=== PATIENT | female | born 1960 | race Caucasian/White ===

== ENCOUNTER → 2019-08-13 | Outpatient (CLI) | payer BC ==
--- NOTE | 2019-08-13 13:38 | MM ---
Reason for exam: screening (asymptomatic). Last mammogram was performed 4 years and 4 months ago. History: Patient is postmenopausal. Benign left mammotome panel of the left breast, May 19, 2008. Physical Findings: A clinical breast exam by your physician is recommended on an annual basis and results should be correlated with mammographic findings. MG Screening Mammo w CAD Bilateral CC and MLO view(s) were taken. Prior study comparison: April 20, 2015, bilateral MG screening mammo w CAD. April 15, 2014, bilateral MG diagnostic mammo w CAD [facility]. The breast tissue is heterogeneously dense. This may lower the sensitivity of mammography. Previous mammotome biopsy in the left breast. Stable scattered groups of punctate calcifications. No significant changes when compared with prior studies. ASSESSMENT: Negative, BI-RAD 1 RECOMMENDATION: Routine screening mammogram of both breasts in 1 year.
== END ==
LOC: RADMAMWWP 07:12
PROVIDERS: ATTEND Internal Medicine
DX: Z12.31 Encounter for screening mammogram for malignant neoplasm of breast (principal)
CPT/HCPCS: 77067

== ENCOUNTER → 2019-08-14 | Day surgery (SDC) | payer BC ==
[2019-08-12 15:18] VITALS: BMI 31.8
[~2019-08-14] MED LIST: LACTATED RINGERS 1,000 ML IV SCH; LIDOCAINE 1% 20 ML VIAL (10MG/ML) FOR IV START INTRADERMA PRN; PROPOFOL 10 MG/ML 20 ML VIAL IV ONE
[2019-08-14 11:23] VITALS: TEMP 98.3
--- NOTE | 2019-08-14 12:06 | P.PCN ---
Date of Procedure: 08/14/19 Procedure(s) Performed: BRIEF HISTORY: Patient is a 59-year-old pleasant white female scheduled for an elective colonoscopy as a part of screening for colorectal neoplasia. No prior history of colonoscopy. She is been symptomatic PROCEDURE PERFORMED: Colonoscopy with biopsy, snare polypectomy and tattooing with Edith ink. PREOPERATIVE DIAGNOSIS: Screening for colon cancer. IV sedation per Anesthesia. PROCEDURE: After informed consent was obtained, the patient, was brought into the endoscopy unit. IV sedation was administered by Anesthesia under continuous monitoring. Digital rectal examination was normal. Initially the Olympus CF-160 flexible video colonoscope was then inserted in the rectum, gradually advanced into the cecum without any difficulty. Careful examination was performed as the scope was gradually being withdrawn. Ileocecal valve and the appendiceal orifice were visualized and appeared normal. Prep was excellent. Mucosa of the cecum, appeared normal. In the ascending colon there was a 2 cm broad-based polyp that was removed by piecemeal snare polypectomy and complete polypectomy was accomplished. Rest of the ascending colon, transverse colon, descending colon, sigmoid colon appeared normal. In the rectosigmoid colon there was a near circumferential ulcerated mass extending from 18-24 cm from the anal verge and multiple biopsies were done from this area. Tattooing with Edith ink was performed in the distal margin of the mass. In the mid rectum there was a 5 mm polyp that was removed by snare polypectomy. Retroflexion was performed in the rectum and no lesions were seen. The patient tolerated the procedure well. IMPRESSION: Near circumferential ulcerated rectosigmoid mass extending from 18-24 cm from the anal verge, status post biopsy on by tattooing with Edith ink at the distal margin 2 cm broad-based ascending colon polyp status post polypectomy 5 mm distal rectal polyp status post polypectomy RECOMMENDATIONS: Findings of this examination were discussed with the patient is well as her family. She was advised to follow with the biopsy results. She'll be scheduled for CT of abdomen and pelvis and will be seen back in office early next week.
[2019-08-14 14:10] VITALS: BP 179/84; PULSE 75; RESP 18
== END ==
LOC: ORWHC2ENDO 10:21
PROVIDERS: ATTEND Internal Medicine Gastroenterology
DX: Z12.11 Encounter for screening for malignant neoplasm of colon (principal); C19 Malignant neoplasm of rectosigmoid junction; D12.2 Benign neoplasm of ascending colon; D12.8 Benign neoplasm of rectum; F17.210 Nicotine dependence, cigarettes, uncomplicated
CPT/HCPCS: 45385; 45380; 45381; 88305; J2704; 44404

== ENCOUNTER → 2019-08-15 | Outpatient (CLI) | payer BC ==
--- NOTE | 2019-08-15 13:41 | CT ---
EXAMINATION TYPE: CT abdomen pelvis w con DATE OF EXAM: 08/15/2019 COMPARISON: None INDICATION: Sigmoid mass, failed colonoscopy. DLP: 1076.50 mGycm, Automated exposure control for dose reduction was used. CONTRAST: 100 mL of Isovue 300. Study performed with Oral Contrast TECHNIQUE: Axial images were obtained from above the diaphragm to the pubic rami in the axial plane a t 5 mm thick sections. Reconstructed images are reviewed on the computer in the coronal plane. FINDINGS: Limited CT sections are obtained the lung bases. The lung bases are clear. CT ABDOMEN: Liver: Tiny hypodensities at the superior liver could be a tiny cyst. Series 4 image 8. Spleen: Normal Pancreas: Normal Adrenal glands: There is a 1.7 cm thickening through the right adrenal gland. Left adrenal gland is n ormal. Gallbladder: Debris is within the gallbladder. Kidneys: No masses are evident. No hydronephrosis is present. There is a 5.2 cm cyst on the posteri or lateral right mid kidney 6 Hounsfield units. Aorta: Vascular calcification is within the aorta. Inferior vena cava: Normal. CT PELVIS: Loops of bowel within the abdomen and pelvis are normal. There is thickening of the distal sigmoi d colon and proximal rectum. Correlate for colitis. Follow-up is recommended. Appendix: Normal as visualized. Urinary bladder: Normal. Genitourinary structures: Uterus is normal. Adnexal regions are clear. Osseous structures: No suspicious lytic or sclerotic lesions. IMPRESSIONS: 1. Thickening to the sigmoid colon into the proximal rectum. Findings are likely related to colitis. Follow-up is recommended. 2. Right renal cyst 3. Thickening of the right adrenal gland measuring
== END | disposition home or self-care (01) ==
LOC: RADCTMAIN 08:17
PROVIDERS: ATTEND Internal Medicine Gastroenterology
DX: N28.1 Cyst of kidney, acquired (principal); K63.89 Other specified diseases of intestine; K62.89 Other specified diseases of anus and rectum; E27.8 Other specified disorders of adrenal gland
CPT/HCPCS: 74177; Q9967 ×2

== ENCOUNTER → 2019-08-30 | Outpatient (CLI) | payer BC ==
[2019-08-30 09:33] LABS: HCT 39.7 % (34.0-46.0); HGB 13.1 gm/dL (11.4-16.0); MCH 31.9 pg (25.0-35.0); MCV 96.6 fL (80.0-100.0); Mean Platelet Volume 6.4; Platelet Count 462 k/uL (150-450); RBC 4.11 m/uL (3.80-5.40); RDW 13.2 % (11.5-15.5); WBC 11.4 k/uL (3.8-10.6)
[2019-08-30 09:56] LABS: Potassium 4.9 mmol/L (3.5-5.1)
== END | disposition home or self-care (01) ==
LOC: LABPAT 08:26
PROVIDERS: ATTEND Surgery
DX: Z01.812 Encounter for preprocedural laboratory examination (principal)
CPT/HCPCS: 36415; 80051; 85027

== ENCOUNTER 2019-09-03 11:26 | Inpatient (IN) | payer BC ==
[2019-08-28 12:59] VITALS: BMI 32.8
[~2019-09-03 11:26] MED LIST changes: +ALVIMOPAN 12 MG CAPSULE PO ONE; +DEXAMETHASONE SOD PHOSPHATE 10 MG/ML 1 ML VIAL IV ONE; +HEPARIN SODIUM,PORCINE 5,000 UNIT/ML 1 ML VIAL SQ ONE; +HYDROmorphone 0.5 MG/0.5 ML SYRINGE IVP PRN; -LACTATED RINGERS 1,000 ML IV SCH; -LIDOCAINE 1% 20 ML VIAL (10MG/ML) FOR IV START INTRADERMA PRN; +MIDAZOLAM 2 MG/2 ML VIAL IV PRN; -PROPOFOL 10 MG/ML 20 ML VIAL IV ONE; +SCOPOLAMINE 1.5MG/72HR PATCH TRANSDERM ONE; +metroNIDAZOLE-NS PMX 500 MG in SALINE 1 100ML.BAG IVPB ONE
[2019-09-03] MEDS ORDERED: LIDOCAINE 1% 20 ML VIAL (10MG/ML) FOR IV START INTRADERMA ONE (12:10)
[2019-09-03] MEDS: ONDANSETRON 4 MG/2 ML VIAL IVP ONE ×2 (12:11→16:51)
[2019-09-03] MEDS: LACTATED RINGERS 1,000 ML IV SCH (12:11)
[2019-09-03] MEDS ORDERED: NALOXONE 0.4 MG/ML 1 ML VIAL IV PRN (12:52)
[2019-09-03] MEDS ORDERED: ONDANSETRON 4 MG/2 ML VIAL IVP PRN (12:52)
[2019-09-03] MEDS ORDERED: GLYCOPYRROLATE 0.2 MG/ML 2 ML VIAL ONE (13:29)
[2019-09-03] MEDS ORDERED: PROPOFOL 10 MG/ML 20 ML VIAL IV ONE (13:29)
[2019-09-03] MEDS ORDERED: ePHEDrine SULFATE/0.9% NACL/PF 50 MG/5 ML SYRINGE IV ONE (13:29)
[2019-09-03] MEDS ORDERED: MIDAZOLAM 2 MG/2 ML VIAL ONE (13:29)
[2019-09-03] MEDS ORDERED: ROCURONIUM BROMIDE 10 MG/ML 10 ML VIAL IV ONE (13:29)
[2019-09-03] MEDS ORDERED: fentaNYL (PF) 50 MCG/ML 2 ML AMP ONE (13:29)
[2019-09-03] MEDS ORDERED: NEOSTIGMINE 1 MG/ML 10 ML VIAL ONE (13:29)
[2019-09-03] MEDS ORDERED: LIDOCAINE 1% INJ 10MG/ML (20 ML MDV) ONE (13:29)
[2019-09-03] MEDS ORDERED: LACTATED RINGERS 1,000 ML IV ONE (15:24)
--- NOTE | 2019-09-03 15:40 | P.OP ---
Date of Procedure: 09/03/19 Preoperative Diagnosis: Colon cancer Postoperative Diagnosis: Colon cancer, sigmoid colon Procedure(s) Performed: Low anterior resection with primary anastomosis Anesthesia: MICHELLE Surgeon: Jose Padilla [facility] Monitor #1: Nasir Golden Estimated Blood Loss (ml): 25 Pathology: other (Sigmoid colon) Condition: stable Disposition: floor Indications for Procedure: This is a 59-year-old female that presented to the surgical clinic after a recent diagnosis of colon cancer. This was found on colonoscopy that was performed as a screening colonoscopy. This mass was noted at approximately the 18 through 24 cm danya. It was noted to be tattooed by the boom supervisor. Secondary to this, plan was made for surgical intervention. The patient did have a CT of the abdomen and pelvis that did not show any obvious metastasis. The patient was excellent the risks, benefit and alternatives to the procedure and did provide consent prior to attending the operating suite. Operative Findings: Area of tattoo noted in the distal sigmoid colon with palpable mass Description of Procedure: The patient was brought into the operating suite and placed in supine position on the operating table. Sedation was provided by anesthesia and the patient did undergo endotracheal intubation. The patient was then put in lithotomy position and Hope catheter was placed. The patient was prepped and draped in regular st erile fashion. A midline infraumbilical incision was made and dissection was carried down through the skin and subcutaneous tissue. The fascia was incised along the length of the incision. The tattooed area within the distal sigmoid colon was clearly visualized and palpated with a hard nodule noted. Bookwalter retractor was placed in the small bowel was packed into the right upper quadrant. The colon was noted to be redundant and only a mild dissection was needed on the white line of Toldt. A proximal point of transection was noted and transected with a Endo KAYCEE 60 mm purple load stapler. The mesentery was then ligated using a LigaSure device towards the distal sigmoid colon. An anticipated distal point of transection was palpated approximately 5 cm past the palpable mass. This area was also transected with a 60 mm purple load stapler. The specimen was then completely removed and a suture was placed on the distal end as a marker for pathology. At this point irrigation was placed and the abdomen and hemostasis was noted to be maintained. At this point, an assistant professor of nursing, dr. Golden, was required for assistance with creating an anastomosis and maneuvering the EEA stapler. Dilator was placed within the rectum and a 29 mm EEA stapler was noted to be appropriate. This was placed through the anus and towards the distal transection point. Once an appropriate position, a colotomy was created on the proximal end of colon and the anvil was placed and sutured into position with a pursestring 3-0 Vicryl suture. The anvil was then mated with its counterpart in the EEA stapler. The EEA stapler was then fired and 2 complete donuts were noted. Irrigation was then placed into the pelvis and a leak test was performed. There was no evidence of any air leak during this test. The Bookwalter retractor was then removed after the abdomen was irrigated once more. Of the midline incision was closed with a looped PDS suture. All skin incision was then closed with skin omkar. The patient was awakened in the operating suite and taken to postanesthesia care unit in stable condition.
[2019-09-03] MEDS: METOCLOPRAMIDE 5 MG/ML 2 ML VIAL IVP SCH (17:39)
[2019-09-04] MEDS ORDERED: LACTATED RINGERS 1,000 ML BAG IV ONE (01:45)
[2019-09-04] MEDS: LACTATED RINGERS 1,000 ML IV SCH (07:44)
[2019-09-04] MEDS: METOCLOPRAMIDE 5 MG/ML 2 ML VIAL IVP SCH ×4 (07:44→23:07)
[2019-09-04] MEDS: ALVIMOPAN 12 MG CAPSULE PO SCH ×2 (07:46→19:49)
[2019-09-04] MEDS: ENOXAPARIN 40 MG/0.4 ML SYRINGE SQ SCH (07:47)
--- NOTE | 2019-09-04 10:37 | P.PN ---
Subjective Progress Note Date: 09/04/19 Patient seen and examined at bedside. States pain is well-controlled. Complains of some nausea. Tolerating clear liquid diet. Hope catheter in place. Objective - Vital Signs Vital signs: Vital Signs Temp 98.4 F 09/04/19 07:00 Pulse 81 09/04/19 07:00 Resp 16 09/04/19 07:15 BP 114/65 09/04/19 07:00 Pulse Ox 93 L 09/04/19 07:00 Intake & Output 09/03/19 09/04/19 09/04/19 18:59 06:59 18:59 Intake Total 1150 437.5 Output Total 75 300 Balance 1075 137.5 Weight 81.5 kg Intake: IV 1150 Intake, IV Titration 437.5 Amount Lactated Ringers 1,000 ml 437.5 @ 125 mls/hr IV .Q8H [facility] Rx#:[id number] Output: Urine 50 300 Estimated Blood Loss 25 Other: Voiding Method Indwelling Catheter Indwelling Catheter Indwelling Catheter - Constitutional General appearance: Present: cooperative, no acute distress - EENT Eyes: Present: PERRLA - Respiratory Details: No difficulty with respiration - Gastrointestinal Gastrointestinal Comment(s): Soft, appropriate tenderness, nondistended, no rebound, no guarding, midline incision with sterile dressing in place - Psychiatric Psychiatric: Present: A&O x's 3 Assessment and Plan (1) Colon cancer Narrative/Plan: Postoperative day #1, LAR - Continue epidural - Continue Hope catheter while epidural is in place - Continue clear liquid diet - Will continue Reglan and Entereg and await bowel function - Medical recommendations appreciated - Await laboratory values - Increase activity Current Visit: Yes Status: Acute Code(s): C18.9 - MALIGNANT NEOPLASM OF COLON, UNSPECIFIED SNOMED Code(s): 289962701
[2019-09-04 13:21] LABS: Basophils # (A) 0.1 k/uL (0-0.2); Basophils % (A) 1 %; Eosinophils # (A) 0.1 k/uL (0-0.7); Eosinophils % (A) 0 %; HCT 36.1 % (34.0-46.0); HGB 10.8 gm/dL (11.4-16.0); Hypochromasia Slight; Lymphocytes # (A) 2.1 k/uL (1.0-4.8); Lymphocytes % (A) 13 %; MCH 30.1 pg (25.0-35.0); MCHC 29.8 g/dL (31.0-37.0); Macrocytosis Slight; Mean Platelet Volume 7.9; Monocytes % (A) 6 %; Neutrophils # (A) 13.1 k/uL (1.3-7.7); Neutrophils % (A) 79 %; Platelet Count 409 k/uL (150-450); RBC 3.58 m/uL (3.80-5.40); RDW 13.5 % (11.5-15.5); WBC 16.5 k/uL (3.8-10.6)
--- NOTE | 2019-09-04 13:49 | P.CONS ---
History of Present Illness - Reason for Consult Consult date: 09/04/19 Medical management Requesting physician: Jose Padilla - Chief Complaint Medical management - History of Present Illness 59-year-old female with recent diagnosis of colon cancer presents to [facility] for elective colectomy and removal of tumor. She underwent a low anterior resection with primary reanastomosis. [facility] physicians has been consulted for medical management of this patient. Patient reports recent diagnosis of colon cancer 2-3 weeks ago after a routine colonoscopy with Dr. Jay. Patient states that this was her first colonoscopy. She denied any bowel issues at that time. No constipation or diarrhea, no melena or blood in stool. Patient reports undergoing computed tomography scan of the abdomen and pelvis that did not show any metastatic disease. She has yet to follow-up with oncology. Patient currently reports no abdominal pain due to the epidural. She reports some nausea but denies any vomiting. Patient reports some hot flash that his chronic in nature. She denies any headache, lower extremities edema, fever or chills, cough, chest pain, shortness of breath, changes in appetite or weight, dizziness, numbness/weakness/tingling of the extremities. She currently has a Hope catheter in place and is passing gas. She denies having a bowel movement. She does report a history of smoking cigarettes 15 cigarettes daily for the past 40 years. Review of Systems Pertinent positives and negatives as discussed in HPI, a complete review of systems was performed and all other systems are negative. Past Medical History Past Medical History: Cancer Additional Past Medical History / Comment(s): colon cancer History of Any Multi-Drug Resistant Organisms: None Reported Past Surgical History: No Surgical Hx Reported Additional Past Surgical History / Comment(s): FRONT TEETH EXTRACTIONS Past Anesthesia/Blood Transfusion Reactions: No Reported Reaction Additional Past Anesthesia/Blood Transfusion Reaction / Comm: DENTAL PROCEDURE ONLY Past Psychological History: No Psychological Hx Reported Smoking Status: Former smoker Past Alcohol Use History: Occasional Additional Past Alcohol Use History / Comment(s): STARTED SMOKING AT AGE 16 SMOKES 1/2PPD Past Drug Use History: Marijuana Additional Drug Use History / Comment(s): RARE OCCAS - Past Family History Mother Family Medical History: No Reported History Medications and Allergies Home Medications Medication Instructions Recorded Confirmed Type Ascorbic Acid [Vitamin C] 1,000 mg PO DAILY 08/12/19 09/03/19 History Calcium Carbonate/Vitamin D3 2 each PO DAILY 08/12/19 09/03/19 History [Calcium 600-Vit D3 400 Caplet] Cyanocobalamin (Vitamin B-12) 5,000 mcg PO DAILY 08/12/19 09/03/19 History [Vitamin B-12] Multivitamin [Multivitamins Adult 1 each PO DAILY 08/12/19 09/03/19 History Gummies] Allergies Allergy/AdvReac Type Severity Reaction Status Date / Time No Known Allergies Allergy Verified 09/03/19 12:12 Physical Exam Vitals: Vital Signs Temp Pulse Resp BP Pulse Ox 09/04/19 07:15 16 09/04/19 07:00 98.4 F 81 16 114/65 93 L 09/04/19 01:45 98.1 F 88 111/64 93 L 09/03/19 19:45 84 124/76 93 L 09/03/19 19:30 83 105/67 91 L 09/03/19 19:15 84 112/72 93 L 09/03/19 19:00 89 107/68 93 L 09/03/19 18:45 86 97/64 93 L 09/03/19 18:30 85 116/73 91 L 09/03/19 18:15 82 118/71 96 09/03/19 17:45 92 144/80 95 09/03/19 17:30 97.9 F 97 18 157/80 93 L 09/03/19 17:02 75 18 118/59 97 09/03/19 16:45 70 18 128/64 97 09/03/19 16:30 64 18 117/55 97 09/03/19 16:15 72 16 117/55 97 09/03/19 16:00 71 18 145/69 97 09/03/19 15:45 72 16 145/69 96 09/03/19 15:30 97.6 F 80 18 150/61 96 Intake and Output 09/03/19 09/04/19 09/04/19 22:59 06:59 14:59 Intake Total 437.5 Output Total 75 300 Balance 362.5 -300 Intake: IV 0 Intake, IV Titration 437.5 Amount Lactated Ringers 1,000 ml 437.5 @ 125 mls/hr IV .Q8H [facility] Rx#:[id number] Output: Urine 50 300 Estimated Blood Loss 25 Other: Voiding Method Indwelling Catheter Indwelling Catheter General: [non toxic], [no distress], [appears at stated age] Derm: [warm], [dry] Head: [atraumatic], [normocephalic], [symmetric] Eyes: [EOMI], [no lid lag], [anicteric sclera] Mouth: [no lip lesion], [mucus membranes moist] Cardiovascular: [S1S2 reg], [no murmur], [positive DP pulse bilateral], Lungs: [CTA bilateral], [no rhonchi, no rales] , [no accessory muscle use] Abdominal: [soft], [ nontender to palpation], [surgical scar midline dressing clean dry and intact no erythema], [no appreciable organomegaly] Ext: [no gross muscle atrophy], [no edema], [no contractures] Neuro: [ CN II-XI grossly intact], [no focal neuro deficits] Psych: [Alert], [oriented], [appropriate affect] Results CBC & Chem 7: 09/04/19 06:36 Labs: Abnormal Lab Results - Last 24 Hours (Table) 09/04/19 Range/Units 06:36 WBC 16.5 H (3.8-10.6) k/uL RBC 3.58 L (3.80-5.40) m/uL Hgb 10.8 L (11.4-16.0) gm/dL MCV 101.0 H (80.0-100.0) fL MCHC 29.8 L (31.0-37.0) g/dL Neutrophils # 13.1 H (1.3-7.7) k/uL Assessment and Plan Assessment: Assessment and plan Colon cancer post resection with primary reanastomosis POD 0 Nicotine dependence Leukocytosis likely reactive Anemia from acute blood loss Recent diagnosis after screening colonoscopy. Sees Dr. Jay. Has not seen an oncologist. Plans: Patient will need adequate follow-up with GI and oncology on discharge. Cholectomy management as per surgery. Zofran as needed for nausea or vomiting. Continue epidural. Clear liquid diet and advance. Plans: Patient refusing nicotine patch at this time. I have encouraged her to quit. Leukocytosis of 16.5. No signs of infection. Likely reactive from surgery. Plans: We will repeat CBC in the morning. Hemoglobin is 10.8. MCV 101. Patient takes vitamin B12 at home. Plans: Follow B12 and folate. Transfuse if hemoglobin less than 7. DVT prophylaxis: [SCD] Discussed with: [Patient and ] Anticipated discharge: [3-[address]: [Home] A total of [45] minutes was spent on the care of this complex patient more than 50% of the time was spent in counseling and care coordination. Patient names her Bhanu decision-maker in the case that she can't make decisions for herself. Patient reiterates wanting to remain full code at this time. Thank you for this consultation. Please call with any additional questions or concerns.
[2019-09-04] MEDS: ROPIVACAINE 400 MG, HYDROMORPHONE (PF) 5 MG in SODIUM CHLORIDE 0.9% 170 ML EPIDURAL PRN (17:30)
[2019-09-05] MEDS: METOCLOPRAMIDE 5 MG/ML 2 ML VIAL IVP SCH ×4 (05:05→23:33)
[2019-09-05] MEDS: LACTATED RINGERS 1,000 ML IV SCH (05:05)
[2019-09-05 07:43] LABS: Basophils # (A) 0.1 k/uL (0-0.2); Basophils % (A) 1 %; Eosinophils # (A) 0.2 k/uL (0-0.7); Eosinophils % (A) 2 %; HCT 31.7 % (34.0-46.0); HGB 10.5 gm/dL (11.4-16.0); Lymphocytes # (A) 2.4 k/uL (1.0-4.8); Lymphocytes % (A) 21 %; MCH 32.1 pg (25.0-35.0); MCV 97.2 fL (80.0-100.0); Monocytes # (A) 0.5 k/uL (0-1.0); Monocytes % (A) 4 %; Neutrophils # (A) 8.3 k/uL (1.3-7.7); Neutrophils % (A) 71 %; Platelet Count 367 k/uL (150-450); RBC 3.26 m/uL (3.80-5.40); RDW 13.2 % (11.5-15.5); WBC 11.6 k/uL (3.8-10.6)
[2019-09-05] MEDS: NALBUPHINE 10 MG/ML (1 ML AMP) IV PRN (08:22)
[2019-09-05] MEDS: ENOXAPARIN 40 MG/0.4 ML SYRINGE SQ SCH (08:22)
[2019-09-05] MEDS: ALVIMOPAN 12 MG CAPSULE PO SCH ×2 (08:23→20:34)
[2019-09-05] MEDS ORDERED: ALBUTEROL NEBULIZED 2.5 MG/3 ML INHALATION PRN (11:41)
--- NOTE | 2019-09-05 11:43 | P.PN ---
Subjective Progress Note Date: 09/05/19 Principal diagnosis: Medical management after colectomy Patient was seen and examined. No acute events overnight. Patient reports mild abdominal pain at the site of incision as epidural has been weaning down from 9- 7. Patient denies any bowel movement. She still has Hope catheter. Patient denies any chest pain, shortness of breath or palpitations. No nausea or vomiting. No fever or chills. Objective - Vital Signs Vital signs: Vital Signs Temp 98.5 F 09/05/19 07:00 Pulse 79 09/05/19 08:05 Resp 16 09/05/19 08:05 BP 121/59 09/05/19 07:00 Pulse Ox 94 L 09/05/19 07:00 Intake & Output 09/04/19 09/05/19 09/05/19 18:59 06:59 18:59 Intake Total 475 Output Total 600 1500 Balance -600 -1025 Intake: Intake, IV Titration 475 Amount Lactated Ringers 1,000 ml 475 @ 125 mls/hr IV .Q8H [facility] Rx#:[id number] Output: Urine 600 1500 Other: Voiding Method Indwelling Catheter Indwelling Catheter Indwelling Catheter - Exam General: [non toxic], [no distress], [appears at stated age] Derm: [warm], [dry] Head: [atraumatic], [normocephalic], [symmetric] Eyes: [EOMI], [no lid lag], [anicteric sclera] Mouth: [no lip lesion], [mucus membranes moist] Cardiovascular: [S1S2 reg], [no murmur], [positive DP pulse bilateral], Lungs: [Expiratory wheezing bilaterally right greater than left], [no rhonchi, no rales] , [no accessory muscle use] Abdominal: [soft], [ nontender to palpation], [surgical scar midline dressing clean dry and intact no erythema], [no appreciable organomegaly] Ext: [no gross muscle atrophy], [no edema], [no contractures] Neuro: [no focal neuro deficits] Psych: [Alert], [oriented], [appropriate affect] - Labs CBC & Chem 7: 09/05/19 07:09 Labs: Abnormal Lab Results - Last 24 Hours (Table) 09/04/19 09/05/19 Range/Units 06:36 07:09 WBC 16.5 H 11.6 H (3.8-10.6) k/uL RBC 3.58 L 3.26 L (3.80-5.40) m/uL Hgb 10.8 L 10.5 L (11.4-16.0) gm/dL Hct 31.7 L (34.0-46.0) % MCV 101.0 H (80.0-100.0) fL MCHC 29.8 L (31.0-37.0) g/dL Neutrophils # 13.1 H 8.3 H (1.3-7.7) k/uL Assessment and Plan Assessment: Assessment and plan Colon cancer post resection with primary reanastomosis POD 1 Wheezing Nicotine dependence Leukocytosis likely reactive Anemia from acute blood loss Recent diagnosis after screening colonoscopy. Sees Dr. Jay. Has not seen an oncologist. Plans: Patient will need adequate follow-up with GI and oncology on discharge. Cholectomy management as per surgery. Zofran as needed for nausea or vomiting. Continue epidural. Clear liquid diet and advance. Follow oncology consultation. Patient denies any shortness of breath and is saturating 90s on 2 L NC. Plans: Follow chest x-ray. Continue incentive spirometer. Albuterol neb as needed for shortness of breath and wheezing. Plans: Patient refusing nicotine patch at this time. I have encouraged her to quit. Leukocytosis of 16.5-11.6. No signs of infection. Likely reactive from surgery . Plans: We will repeat CBC in the morning. Hemoglobin is 10.8-10.5. MCV 101. Patient takes vitamin B12 at home. Plans: Follow B12 and folate. Transfuse if hemoglobin less than 7.
[2019-09-05 12:32] LABS: African American GFR (CKD) >90 (>60 ml/min/1.73 sqM); Anion Gap 3 mmol/L; Blood Urea Nitrogen 14 mg/dL (7-17); Calcium 8.9 mg/dL (8.4-10.2); Carbon Dioxide 28 mmol/L (22-30); Chloride 105 mmol/L (98-107); Glucose 88 mg/dL (74-99); Potassium 4.6 mmol/L (3.5-5.1); Sodium 136 mmol/L (137-145)
--- NOTE | 2019-09-05 12:41 | XR ---
EXAMINATION TYPE: XR chest 1V portable DATE OF EXAM: 09/05/2019 COMPARISON: None INDICATION: Wheezing TECHNIQUE: Single frontal view of the chest is obtained. FINDINGS: The heart size is normal. The pulmonary vasculature is normal. There are bilateral areas of increased density at the lung bases compatible with atelectasis. IMPRESSION: 1. Bibasilar atelectasis. Follow-up can be performed.
--- NOTE | 2019-09-05 14:01 | P.PN ---
Subjective Progress Note Date: 09/05/19 Patient seen and examined at bedside. No acute events. Ending in a chair with her family. Denies any bowel function. States pain is well controlled with epidural in place. Hope catheter in place. Objective - Vital Signs Vital signs: Vital Signs Temp 98.5 F 09/05/19 07:00 Pulse 79 09/05/19 08:05 Resp 16 09/05/19 08:05 BP 121/59 09/05/19 07:00 Pulse Ox 94 L 09/05/19 07:00 Intake & Output 09/04/19 09/05/19 09/05/19 18:59 06:59 18:59 Intake Total 475 157.984 Output Total 600 1500 Balance -600 -1025 157.984 Intake: Intake, IV Titration 475 157.984 Amount Lactated Ringers 1,000 ml 475 @ 125 mls/hr IV .Q8H [facility] Rx#:[id number] Ropivacaine 400 mg 157.984 Hydromorphone (Pf) 5 mg In Sodium Chloride 0.9% 170 ml @ Per Protocol EPIDURAL .Q0M PRN Rx#: [id number] Output: Urine 600 1500 Other: Voiding Method Indwelling Catheter Indwelling Catheter Indwelling Catheter - Constitutional General appearance: Present: cooperative, no acute distress - Respiratory Details: No difficulty with respiration - Gastrointestinal Gastrointestinal Comment(s): Soft, appropriate tenderness, nondistended, no rebound, no guarding - Musculoskeletal Musculoskeletal: Present: generalized weakness - Psychiatric Psychiatric: Present: A&O x's 3 - Labs CBC & Chem 7: 09/05/19 07:09 09/05/19 07:09 Labs: Abnormal Lab Results - Last 24 Hours (Table) 09/05/19 09/05/19 Range/Units 07:09 07:09 WBC 11.6 H (3.8-10.6) k/uL RBC 3.26 L (3.80-5.40) m/uL Hgb 10.5 L (11.4-16.0) gm/dL Hct 31.7 L (34.0-46.0) % Neutrophils # 8.3 H (1.3-7.7) k/uL Sodium 136 L (137-145) mmol/L Assessment and Plan (1) Colon cancer Narrative/Plan: Postoperative day #2, LAR - Continue epidural - Continue Hope catheter while epidural is in place - Continue clear liquid diet - Will continue Reglan and Entereg and await bowel function - Medical recommendations appreciated - Leukocytosis is improving, reactive from surgery - Increase activity Current Visit: Yes Status: Acute Code(s): C18.9 - MALIGNANT NEOPLASM OF COLON, UNSPECIFIED SNOMED Code(s): 172527811
--- NOTE | 2019-09-05 14:23 | P.CONS ---
History of Present Illness - Reason for Consult Consult date: 09/05/19 colon cancer Requesting physician: Nahomi Eilzabeth - Chief Complaint colon cancer - History of Present Illness Mrs. Carvajal is a very pleasant 59-year-old female who was found on routine colonoscopy with Dr. Arriaga on 08/14 (she is 59 years old and this was her first one) to have a rectosigmoid mass. Bx positive for adencarcinoma, MSI stable. Patient was taken to surgery by Dr. Padilla on 09/03 with LAR and anastamosis. Final pathology pending. Patient denied any symptoms prior to the routine colonoscopy, no unintentional weight loss, sweats, frequent infections, abdominal pain or cramping, indigestion heartburn, difficulty swallowing, she had been managing some constipation with occasional bleeding from hemorrhoids but nothing she felt was unusual. She was not taking any medications on admission, she denies any history of surgeries, no personal history of cancer, no family history of cancer. Patient is doing well postoperatively, is grateful for her pain medication at this time, she is out of bed today Review of Systems 14 point ROS is negative except as stated in HPI Past Medical History Past Medical History: Cancer Additional Past Medical History / Comment(s): colon cancer History of Any Multi-Drug Resistant Organisms: None Reported Past Surgical History: No Surgical Hx Reported Additional Past Surgical History / Comment(s): FRONT TEETH EXTRACTIONS Past Anesthesia/Blood Transfusion Reactions: No Reported Reaction Additional Past Anesthesia/Blood Transfusion Reaction / Comm: DENTAL PROCEDURE ONLY Past Psychological History: No Psychological Hx Reported Smoking Status: Former smoker Past Alcohol Use History: Occasional Additional Past Alcohol Use History / Comment(s): STARTED SMOKING AT AGE 16 SMOKES 1/2PPD Past Drug Use History: Marijuana Additional Drug Use History / Comment(s): RARE OCCAS - Past Family History Mother Family Medical History: No Reported History Medications and Allergies Home Medications Medication Instructions Recorded Confirmed Type Ascorbic Acid [Vitamin C] 1,000 mg PO DAILY 08/12/19 09/03/19 History Calcium Carbonate/Vitamin D3 2 each PO DAILY 08/12/19 09/03/19 History [Calcium 600-Vit D3 400 Caplet] Cyanocobalamin (Vitamin B-12) 5,000 mcg PO DAILY 08/12/19 09/03/19 History [Vitamin B-12] Multivitamin [Multivitamins Adult 1 each PO DAILY 08/12/19 09/03/19 History Gummies] Allergies Allergy/AdvReac Type Severity Reaction Status Date / Time No Known Allergies Allergy Verified 09/03/19 12:12 Physical Exam Vitals: Vital Signs Temp Pulse Pulse Resp BP Pulse Ox 09/05/19 08:05 79 74 16 09/05/19 07:00 98.5 F 79 16 121/59 94 L 09/05/19 00:50 98.5 F 75 15 123/68 93 L 09/04/19 20:31 98.7 F 73 16 121/63 96 09/04/19 19:11 98.4 F 79 15 116/53 96 09/04/19 17:28 98.5 F 74 15 126/65 95 09/04/19 14:58 98.8 F 74 16 131/66 96 Intake and Output 09/04/19 09/05/19 09/05/19 22:59 06:59 14:59 Intake Total 475 157.984 Output Total 1500 Balance 475 -1500 157.984 Intake: Intake, IV Titration 475 157.984 Amount Lactated Ringers 1,000 ml 475 @ 125 mls/hr IV .[facility] Rx#:[id number] Ropivacaine 400 mg 157.984 Hydromorphone (Pf) 5 mg In Sodium Chloride 0.9% 170 ml @ Per Protocol EPIDURAL .Q0M PRN Rx#: [id number] Output: Urine 1500 Other: Voiding Method Indwelling Catheter Indwelling Catheter Indwelling Catheter - Constitutional General appearance: cooperative, no acute distress, obese - EENT Eyes: anicteric sclerae, EOMI ENT: hearing grossly normal, normal oropharynx - Neck Neck: no lymphadenopathy - Respiratory Respiratory: bilateral: CTA - Cardiovascular Rhythm: regular Heart sounds: normal: S1, S2 Abnormal Heart Sounds: no systolic murmur, no diastolic murmur, no rub, no S3 Gallop, no S4 Gallop, no click, no other leg Peripheral Edema: bilateral: None - Gastrointestinal General gastrointestinal: decreased bowel sounds, distended, soft, tenderness - Integumentary Integumentary: normal - Neurologic Neurologic: CNII-XII intact - Musculoskeletal Musculoskeletal: strength equal bilaterally - Psychiatric Psychiatric: A&O x's 3, appropriate affect, intact judgment & insight Results CBC & Chem 7: 09/05/19 07:09 09/05/19 07:09 Labs: Abnormal Lab Results - Last 24 Hours (Table) 09/05/19 09/05/19 Range/Units 07:09 07:09 WBC 11.6 H (3.8-10.6) k/uL RBC 3.26 L (3.80-5.40) m/uL Hgb 10.5 L (11.4-16.0) gm/dL Hct 31.7 L (34.0-46.0) % Neutrophils # 8.3 H (1.3-7.7) k/uL Sodium 136 L (137-145) mmol/L Assessment and Plan (1) Colon cancer Narrative/Plan: Discussed with patient that the final pathology of the resected mass will determine her final stage. Based on the final stage it will be known if if she requires adjuvant chemotherapy or not. I also explained to patient that if there was any adjuvant chemotherapy needed it would not be done until at least 4-6 weeks postop to ensure adequate healing. All of her questions were answered to the best of my ability and to her satisfaction. Reminded patient that she must follow with Dr. Padilla and adhere to his strict orders for colonoscopies as he prescribes. She verbalized understanding. Appointment will be placed in the chart for 4-6 weeks from now for patient to follow up with Dr. See for final pathology, stage, treatment recommendations if needed and follow up Current Visit: Yes Status: Acute Priority: High Code(s): C18.9 - MALIGNANT NEOPLASM OF COLON, UNSPECIFIED SNOMED Code(s): 651975749
[2019-09-05] MEDS: ROPIVACAINE 400 MG, HYDROMORPHONE (PF) 5 MG in SODIUM CHLORIDE 0.9% 170 ML EPIDURAL PRN (22:38)
[2019-09-06] MEDS: METOCLOPRAMIDE 5 MG/ML 2 ML VIAL IVP SCH ×4 (05:02→23:32)
[2019-09-06] MEDS: NALBUPHINE 10 MG/ML (1 ML AMP) IV PRN (05:06)
[2019-09-06] MEDS: LACTATED RINGERS 1,000 ML IV SCH (05:09)
[2019-09-06 08:44] LABS: Basophils # (A) 0.1 k/uL (0-0.2); Basophils % (A) 0 %; Eosinophils # (A) 0.3 k/uL (0-0.7); Eosinophils % (A) 2 %; HCT 34.9 % (34.0-46.0); HGB 11.5 gm/dL (11.4-16.0); Lymphocytes # (A) 1.9 k/uL (1.0-4.8); Lymphocytes % (A) 13 %; MCH 31.6 pg (25.0-35.0); MCHC 32.9 g/dL (31.0-37.0); MCV 95.9 fL (80.0-100.0); Mean Platelet Volume 6.3; Monocytes # (A) 0.6 k/uL (0-1.0); Monocytes % (A) 4 %; Neutrophils # (A) 11.5 k/uL (1.3-7.7); Neutrophils % (A) 80 %; Platelet Count 397 k/uL (150-450); RBC 3.64 m/uL (3.80-5.40); WBC 14.5 k/uL (3.8-10.6)
[2019-09-06] MEDS: ALVIMOPAN 12 MG CAPSULE PO SCH (10:00)
[2019-09-06] MEDS: ENOXAPARIN 40 MG/0.4 ML SYRINGE SQ SCH (10:00)
[2019-09-06 11:30] LABS: African American GFR (CKD) >90 (>60 ml/min/1.73 sqM); Anion Gap 6 mmol/L; Blood Urea Nitrogen 9 mg/dL (7-17); Calcium 9.1 mg/dL (8.4-10.2); Carbon Dioxide 28 mmol/L (22-30); Chloride 103 mmol/L (98-107); Glucose 104 mg/dL (74-99); Potassium 4.1 mmol/L (3.5-5.1); Sodium 137 mmol/L (137-145)
--- NOTE | 2019-09-06 11:51 | P.PN ---
Subjective Progress Note Date: 09/06/19 Principal diagnosis: Medical management after colectomy Patient was seen and examined. No acute events overnight. Patient reports mildly worsening abdominal pain at the site of incision as epidural has been weaning down from 9-7-2. Patient denies any bowel movement. She still has Hope catheter until epidural is removed. Patient denies any chest pain, shortness of breath or palpitations. Complains of some nausea but no vomiting. No fever or chills. Objective - Vital Signs Vital signs: Vital Signs Temp 99.2 F 09/06/19 07:00 Pulse 80 09/06/19 08:00 Resp 17 09/06/19 07:00 BP 177/85 09/06/19 07:00 Pulse Ox 92 L 09/06/19 07:00 Intake & Output 09/05/19 09/06/19 09/06/19 18:59 06:59 18:59 Intake Total 919.822 1302.1 Output Total 1000 1200 Balance -842.016 52.1 Intake: Intake, IV Titration 486.462 1957.1 Amount Lactated Ringers 1,000 ml 1200 @ 0 mls/hr IV .[facility] Rx#:[id number] Ropivacaine 400 mg 157.984 52.1 Hydromorphone (Pf) 5 mg In Sodium Chloride 0.9% 170 ml @ Per Protocol EPIDURAL .Q0M PRN Rx#: [id number] Output: Urine 1000 1200 Other: Voiding Method Indwelling Catheter Indwelling Catheter Indwelling Catheter # Voids 350 - Exam General: [non toxic], [no distress], [appears at stated age] Derm: [warm], [dry] Head: [atraumatic], [normocephalic], [symmetric] Eyes: [EOMI], [no lid lag], [anicteric sclera] Mouth: [no lip lesion], [mucus membranes moist] Cardiovascular: [S1S2 reg], [no murmur], [positive DP pulse bilateral], Lungs: [Expiratory wheezing bilaterally right greater than left], [no rhonchi, no rales] , [no accessory muscle use] Abdominal: [soft], [ nontender to palpation], [surgical scar midline dressing clean dry and intact no erythema], [no appreciable organomegaly] Ext: [no gross muscle atrophy], [no edema], [no contractures] Neuro: [no focal neuro deficits] Psych: [Alert], [oriented], [appropriate affect] - Labs CBC & Chem 7: 09/06/19 08:14 09/06/19 08:14 Labs: Abnormal Lab Results - Last 24 Hours (Table) 09/05/19 09/06/19 09/06/19 Range/Units 07:09 08:14 08:14 WBC 14.5 H (3.8-10.6) k/uL RBC 3.64 L (3.80-5.40) m/uL Neutrophils # 11.5 H (1.3-7.7) k/uL Sodium 136 L (137-145) mmol/L Glucose 104 H (74-99) mg/dL Assessment and Plan Assessment: Assessment and plan Colon cancer post resection with primary reanastomosis POD 2 Wheezing Nicotine dependence Leukocytosis likely reactive Anemia from acute blood loss Recent diagnosis after screening colonoscopy. Sees Dr. Jay. Has not seen an oncologist. Plans: Patient will need adequate follow-up with GI and oncology on discharge. Cholectomy management as per surgery. Zofran as needed for nausea or vomiting. Continue epidural. Full liquid diet and advance. Follow oncology consultation. Patient denies any shortness of breath and is saturating 90s on 2 L NC. Chest x-ray shows atelectasis Plans: Continue incentive spirometer. Albuterol neb as needed for shortness of breath and wheezing. Plans: Patient refusing nicotine patch at this time. I have encouraged her to quit. Leukocytosis of 16.5-11.6-14.5. No signs of infection. Likely reactive from surgery. Plans: We will repeat CBC in the morning. Discussed with Dr. Padilla, plans to observe for now. Hemoglobin is 10.8-10.5-11.5. Normocytic. Patient takes B12 supplements at home. Plans: Follow B12 and folate. Transfuse if hemoglobin less than 7.
--- NOTE | 2019-09-06 13:20 | P.PN ---
Subjective Progress Note Date: 09/06/19 Patient seen and examined at bedside. No acute events. States she is having flatus. Complains of some nausea. Denies any vomiting. Epidural and Hope catheter remain in place. Due to nausea and occasional itching episodes, nursing is weaning the epidural. Objective - Vital Signs Vital signs: Vital Signs Temp 99.2 F 09/06/19 07:00 Pulse 80 09/06/19 08:00 Resp 17 09/06/19 07:00 BP 177/85 09/06/19 07:00 Pulse Ox 92 L 09/06/19 07:00 Intake & Output 09/05/19 09/06/19 09/06/19 18:59 06:59 18:59 Intake Total 656.900 0894.1 Output Total 1000 1200 Balance -842.016 52.1 Intake: Intake, IV Titration 546.413 9967.1 Amount Lactated Ringers 1,000 ml 1200 @ 0 mls[facility]hr [facility] Rx#:[id number] Ropivacaine 400 mg 157.984 52.1 Hydromorphone (Pf) 5 mg In Sodium Chloride 0.9% 170 ml @ Per Protocol EPIDURAL .Q0M PRN Rx#: [id number] Output: Urine 1000 1200 Other: Voiding Method Indwelling Catheter Indwelling Catheter Indwelling Catheter # Voids 350 - Constitutional General appearance: Present: cooperative, no acute distress - Respiratory Details: No difficulty with respiration - Gastrointestinal Gastrointestinal Comment(s): Soft, appropriate tenderness, mild distention, no rebound, no guarding, midline incision site is clean, dry and intact. - Psychiatric Psychiatric: Present: A&O x's 3 - Labs CBC & Chem 7: 09/06/19 08:14 09/06/19 08:14 Labs: Abnormal Lab Results - Last 24 Hours (Table) 09/06/19 09/06/19 Range/Units 08:14 08:14 WBC 14.5 H (3.8-10.6) k/uL RBC 3.64 L (3.80-5.40) m/uL Neutrophils # 11.5 H (1.3-7.7) k/uL Glucose 104 H (74-99) mg/dL Assessment and Plan (1) Colon cancer Narrative/Plan: Postoperative day #3, LAR - Continue epidural - Continue Hope catheter while epidural is in place - Due to flatus episodes, we will advance to full liquid diet - Will continue Reglan and Entereg and await bowel function - Medical recommendations appreciated - Will continue to follow leukocytosis, no obvious source of infection noted at this time - Increase activity Current Visit: Yes Status: Acute Priority: High Code(s): C18.9 - MALIGNANT NEOPLASM OF COLON, UNSPECIFIED SNOMED Code(s): 401535707
--- NOTE | 2019-09-06 16:47 | P.PN ---
Subjective Progress Note Date: 09/06/19 The patient denies any new complaints. She has had no untoward postop obligations. Pain control is reasonable. No obvious bleeding, fever, chills or vomiting Objective - Vital Signs Vital signs: Vital Signs Temp 99.1 F 09/06/19 15:00 Pulse 87 09/06/19 15:00 Resp 17 09/06/19 15:00 BP 177/88 09/06/19 15:00 Pulse Ox 93 L 09/06/19 15:00 Intake & Output 09/05/19 09/06/19 09/06/19 18:59 06:59 18:59 Intake Total 255.333 6128.1 Output Total 1000 1200 Balance -842.016 52.1 Intake: Intake, IV Titration 203.211 4206.1 Amount Lactated Ringers 1,000 ml 1200 @ 0 mls/hr IV .[facility] Rx#:[id number] Ropivacaine 400 mg 157.984 52.1 Hydromorphone (Pf) 5 mg In Sodium Chloride 0.9% 170 ml @ Per Protocol EPIDURAL .Q0M PRN Rx#: [id number] Output: Urine 1000 1200 Other: Voiding Method Indwelling Catheter Indwelling Catheter Indwelling Catheter # Voids 350 0 - Constitutional General appearance: Present: no acute distress - EENT Eyes: Present: EOMI ENT: Present: hearing grossly normal, normal oropharynx - Respiratory Respiratory: bilateral: CTA - Cardiovascular Rhythm: regular Heart sounds: normal: S1, S2 - Gastrointestinal General gastrointestinal: Present: decreased bowel sounds, soft - Integumentary Integumentary: Present: normal - Neurologic Neurologic: Present: CNII-XII intact - Musculoskeletal Musculoskeletal: Present: generalized weakness, strength equal bilaterally - Psychiatric Psychiatric: Present: A&O x's 3, appropriate affect - Labs CBC & Chem 7: 09/06/19 08:14 09/06/19 08:14 Labs: Abnormal Lab Results - Last 24 Hours (Table) 09/06/19 09/06/19 Range/Units 08:14 08:14 WBC 14.5 H (3.8-10.6) k/uL RBC 3.64 L (3.80-5.40) m/uL Neutrophils # 11.5 H (1.3-7.7) k/uL Glucose 104 H (74-99) mg/dL Assessment and Plan (1) Colon cancer Narrative/Plan: The patient's pathology report is now available. Us reveals a T3 tumor, with 1/9 lymph nodes positive as well as at least 3 noncontiguous tumor deposits in t he pericolonic tissue. These are equivalent to positive lymph nodes and would place her in the N1C stage. Thus the patient appears to have stage III disease - The pathology and implications were discussed in detail with her and multiple members of the family. Is advised that typically for this stage, there would be a significant risk of metastatic recurrence with surgery alone. Therefore for a patient with good performance status, which she has, adjuvant aggressive chemotherapy would be recommended. The rationale for the same was discussed in detail. I also discussed the standard FOLFOX regimen. The questions of the patient and family were answered in detail. I will discuss with the surgeon about placing a port. He was advised that typically we wait at least 4-6 weeks after surgery start adjuvant chemotherapy. She will thus be followed up in the hospital and adjuvant treatment will be ordered assuming that the patient is recovering in a satisfactory manner postop Current Visit: Yes Status: Acute Priority: High Code(s): C18.9 - MALIGNANT NEOPLASM OF COLON, UNSPECIFIED SNOMED Code(s): 902363168 (2) Anemia Narrative/Plan: The patient is a mild anemia, that could be due to blood loss from her tumor and/or surgery. Hemoglobin is in a safe range. Check iron studies. If low, she would be candidate for iron supplementation and discharge Current Visit: Yes Status: Acute Code(s): D64.9 - ANEMIA, UNSPECIFIED SNOMED Code(s): 483648063
[2019-09-07] MEDS ORDERED: LISINOPRIL 20 MG TAB PO STA (01:47)
[2019-09-07] MEDS: METOCLOPRAMIDE 5 MG/ML 2 ML VIAL IVP SCH ×3 (05:26→17:42)
[2019-09-07] MEDS: LACTATED RINGERS 1,000 ML IV SCH (05:26)
[2019-09-07 06:52] LABS: Basophils # (A) 0.1 k/uL (0-0.2); Basophils % (A) 1 %; Eosinophils # (A) 0.3 k/uL (0-0.7); Eosinophils % (A) 2 %; HCT 34.4 % (34.0-46.0); HGB 11.5 gm/dL (11.4-16.0); Lymphocytes # (A) 1.6 k/uL (1.0-4.8); Lymphocytes % (A) 11 %; MCH 31.9 pg (25.0-35.0); MCHC 33.4 g/dL (31.0-37.0); MCV 95.4 fL (80.0-100.0); Mean Platelet Volume 6.1; Monocytes # (A) 0.5 k/uL (0-1.0); Monocytes % (A) 4 %; Neutrophils # (A) 11.6 k/uL (1.3-7.7); Neutrophils % (A) 81 %; Platelet Count 381 k/uL (150-450); RBC 3.61 m/uL (3.80-5.40); RDW 12.9 % (11.5-15.5); WBC 14.3 k/uL (3.8-10.6)
[2019-09-07 07:26] LABS: ALT 26 U/L (9-52); AST 27 U/L (14-36); African American GFR (CKD) >90 (>60 ml/min/1.73 sqM); Albumin 3.3 g/dL (3.5-5.0); Alkaline Phosphatase 105 U/L (38-126); Anion Gap 10 mmol/L; Blood Urea Nitrogen 7 mg/dL (7-17); Calcium 8.9 mg/dL (8.4-10.2); Carbon Dioxide 29 mmol/L (22-30); Chloride 100 mmol/L (98-107); Glucose 102 mg/dL (74-99); Potassium 3.9 mmol/L (3.5-5.1); Sodium 139 mmol/L (137-145); Total Bilirubin 0.7 mg/dL (0.2-1.3); Total Protein 5.9 g/dL (6.3-8.2)
[2019-09-07] MEDS: ENOXAPARIN 40 MG/0.4 ML SYRINGE SQ SCH (09:07)
[2019-09-07] MEDS: LISINOPRIL 20 MG TAB PO SCH (09:07)
[2019-09-07] MEDS ORDERED: HYDROmorphone 0.5 MG/0.5 ML SYRINGE IVP PRN (10:35)
--- NOTE | 2019-09-07 10:43 | P.PN ---
Subjective Progress Note Date: 09/07/19 Patient seen and examined at bedside. States she has had multiple bowel movements over the past 24 hours. She states her nausea is well-controlled. She is tolerating a full liquid diet. Objective - Vital Signs Vital signs: Vital Signs Temp 98.6 F 09/07/19 07:00 Pulse 81 09/07/19 07:00 Resp 18 09/07/19 07:00 BP 164/80 09/07/19 07:00 Pulse Ox 94 L 09/07/19 07:00 Intake & Output 09/06/19 09/07/19 09/07/19 18:59 06:59 18:59 Intake Total 300 Output Total 1250 900 Balance -1250 -600 Intake: Oral 300 Output: Urine 1250 900 Other: Voiding Method Indwelling Catheter Indwelling Catheter # Voids 0 1 # Bowel Movements 1 - Constitutional General appearance: Present: cooperative, no acute distress - EENT Eyes: Present: PERRLA - Respiratory Details: No difficulty with respiration - Gastrointestinal Gastrointestinal Comment(s): Soft, appropriate tenderness, mild distention, no rebound, no guarding, midline incision clean, dry and intact with omkar in place - Psychiatric Psychiatric: Present: A&O x's 3 - Labs CBC & Chem 7: 09/07/19 06:26 09/07/19 06:26 Labs: Abnormal Lab Results - Last 24 Hours (Table) 09/06/19 09/07/19 09/07/19 Range/Units 08:14 06:26 06:26 WBC 14.3 H (3.8-10.6) k/uL RBC 3.61 L (3.80-5.40) m/uL Neutrophils # 11.6 H (1.3-7.7) k/uL Glucose 104 H 102 H (74-99) mg/dL Total Protein 5.9 L (6.3-8.2) g/dL Albumin 3.3 L (3.5-5.0) g/dL Assessment and Plan (1) Colon cancer Narrative/Plan: Postoperative day #4, LAR - Discontinue epidural - Discontinue Hope catheter - Patient has had multiple bowel movements, discontinue Entereg - Due to some mild distention, we will continue full liquid diet - Medical recommendations appreciated - Will continue to follow leukocytosis, no obvious source of infection noted at this time, UA to be obtained - Increase activity - Progressing slowly Current Visit: Yes Status: Acute Priority: High Code(s): C18.9 - MALIGNANT NEOPLASM OF COLON, UNSPECIFIED SNOMED Code(s): 508278083
[2019-09-07] MEDS: HYDROcodone/APAP 5-325MG 1 EACH TAB PO PRN ×2 (11:37→17:48)
[2019-09-07] MEDS: KETOROLAC 30 MG/ML 1 ML VIAL IVP SCH ×2 (11:38→17:41)
--- NOTE | 2019-09-07 13:12 | P.PN ---
Subjective Progress Note Date: 09/07/19 Principal diagnosis: Medical management after colectomy Patient was seen and examined. No acute events overnight. Epidural has been discontinued. Patient reports significant improvement in her pain, none currently, only when she coughs or labs at the site of incision. Multiple bowel movements yesterday. Hope catheter to be removed today per patient. Patient denies any chest pain, shortness of breath or palpitations. Complains of some nausea but no vomiting. No fever or chills. Objective - Vital Signs Vital signs: Vital Signs Temp 98.6 F 09/07/19 07:00 Pulse 81 09/07/19 09:00 Resp 18 09/07/19 09:00 BP 164/80 09/07/19 07:00 Pulse Ox 94 L 09/07/19 07:00 Intake & Output 09/06/19 09/07/19 09/07/19 18:59 06:59 18:59 Intake Total 300 Output Total 1250 900 Balance -1250 -600 Intake: Oral 300 Output: Urine 1250 900 Other: Voiding Method Indwelling Catheter Indwelling Catheter Indwelling Catheter # Voids 0 1 # Bowel Movements 1 - Exam General: [non toxic], [no distress], [appears at stated age] Derm: [warm], [dry] Head: [atraumatic], [normocephalic], [symmetric] Eyes: [EOMI], [no lid lag], [anicteric sclera] Mouth: [no lip lesion], [mucus membranes moist] Cardiovascular: [S1S2 reg], [no murmur], [positive DP pulse bilateral], Lungs: [Clear to auscultation bilaterally], [no rhonchi, no rales] , [no accessory muscle use] Abdominal: [soft], [ nontender to palpation], [surgical scar midline dressing clean dry and intact no erythema], [no appreciable organomegaly] Ext: [no gross muscle atrophy], [no edema], [no contractures] Neuro: [no focal neuro deficits] Psych: [Alert], [oriented], [appropriate affect] - Labs CBC & Chem 7: 09/07/19 06:26 09/07/19 06:26 Labs: Abnormal Lab Results - Last 24 Hours (Table) 09/07/19 09/07/19 Range/Units 06:26 06:26 WBC 14.3 H (3.8-10.6) k/uL RBC 3.61 L (3.80-5.40) m/uL Neutrophils # 11.6 H (1.3-7.7) k/uL Glucose 102 H (74-99) mg/dL Total Protein 5.9 L (6.3-8.2) g/dL Albumin 3.3 L (3.5-5.0) g/dL Assessment and Plan Assessment: Assessment and plan Colon cancer post resection with primary reanastomosis POD 3 Wheezing Nicotine dependence Leukocytosis likely reactive Anemia from acute blood loss Recent diagnosis after screening colonoscopy. Sees Dr. Jay. Has not seen an oncologist. Plans: Patient will need adequate follow-up with GI and oncology on discharge. Cholectomy management as per surgery. Zofran as needed for nausea or vomiting. Remove Hope today. Full liquid diet and advance. Follow oncology consultation. Patient denies any shortness of breath and is saturating 90s on 2 L NC. Chest x-ray shows atelectasis. Improved. Plans: Continue incentive spirometer. Albuterol neb as needed for shortness of breath and wheezing. Plans: Patient refusing nicotine patch at this time. I have encouraged her to quit. Leukocytosis of 16.5-11.6-14.5-14.3. No signs of infection. Likely reactive from surgery. Plans: We will repeat CBC in the morning. Discussed with Dr. Padilla, plans to observe for now. Hemoglobin is 10.8-10.5-11.5. Normocytic. Patient takes B12 supplements at home. Plans: Follow B12 and folate. Transfuse if hemoglobin less than 7. [Patient is progressing well. Plans to remove Hope this afternoon. Likely DC in 1-2 days. Management as per surgery.]
[2019-09-07 15:14] LABS: Appearance,Urine Clear (Clear); Bilirubin,Urine Negative (Negative); Blood,Urine Negative (Negative); Color,Urine Light Yellow; Glucose,Urine (UA) Negative (Negative); Ketones,Urine 2+ (Negative); Leukocyte Esterase,Urine Negative (Negative); Nitrite,Urine Negative (Negative); Protein,Urine Negative (Negative); Specific Gravity,Urine 1.007 (1.001-1.035); Urobilinogen,Urine <2.0 mg/dL (<2.0)
[2019-09-07 16:07] LABS: Ferritin 132.6 ng/mL (10.0-291.0)
[2019-09-07 16:14] LABS: Iron Saturation 7.9 (12.00-45.00)
[2019-09-08] MEDS ORDERED: hydrALAZINE HCL 50 MG TAB PO STA
[2019-09-08] MEDS: KETOROLAC 30 MG/ML 1 ML VIAL IVP SCH ×4 (00:06→17:14)
[2019-09-08] MEDS: METOCLOPRAMIDE 5 MG/ML 2 ML VIAL IVP SCH ×4 (00:13→17:15)
[2019-09-08] MEDS: LACTATED RINGERS 1,000 ML IV SCH (00:19)
[2019-09-08 07:22] LABS: Basophils # (A) 0.1 k/uL (0-0.2); Basophils % (A) 1 %; Eosinophils # (A) 0.6 k/uL (0-0.7); Eosinophils % (A) 3 %; HCT 34.7 % (34.0-46.0); HGB 11.1 gm/dL (11.4-16.0); Lymphocytes # (A) 1.3 k/uL (1.0-4.8); Lymphocytes % (A) 7 %; MCH 30.5 pg (25.0-35.0); MCHC 31.9 g/dL (31.0-37.0); MCV 95.6 fL (80.0-100.0); Mean Platelet Volume 7.4; Monocytes # (A) 0.8 k/uL (0-1.0); Monocytes % (A) 5 %; Neutrophils # (A) 14.2 k/uL (1.3-7.7); Neutrophils % (A) 83 %; Platelet Count 389 k/uL (150-450); RBC 3.62 m/uL (3.80-5.40); RDW 13.2 % (11.5-15.5); WBC 17.1 k/uL (3.8-10.6)
[2019-09-08] MEDS: ENOXAPARIN 40 MG/0.4 ML SYRINGE SQ SCH (08:28)
[2019-09-08] MEDS: LISINOPRIL 20 MG TAB PO SCH (08:28)
--- NOTE | 2019-09-08 09:14 | XR ---
EXAMINATION TYPE: XR abdomen acute w cxr , 4 VIEWS DATE OF EXAM ORDERED: 09/08/2019 HISTORY: post op. COMPARISON: None. FINDINGS: There is platelike atelectasis in both lungs. Heart size is within normal limits. Pleural spaces are clear. IMPRESSION: PLATELIKE ATELECTASIS, BOTH LUNGS.
--- NOTE | 2019-09-08 10:55 | P.PN ---
Subjective Progress Note Date: 09/08/19 Patient seen and examined at bedside. No acute events. Patient states she continues to pass gas and have liquid bowel movements. Abdominal pain is well- controlled. Denies fevers, chills, chest pain or shortness of breath. Objective - Vital Signs Vital signs: Vital Signs Temp 98.3 F 09/08/19 08:00 Pulse 84 09/08/19 08:00 Resp 17 09/08/19 08:10 BP 183/94 09/08/19 08:00 Pulse Ox 91 L 09/08/19 08:00 Intake & Output 09/07/19 09/08/19 09/08/19 18:59 06:59 18:59 Output Total 1300 1450 Balance -1300 -1450 Output: Urine 1300 1450 Other: Voiding Method Indwelling Catheter Indwelling Catheter # Bowel Movements 2 - Constitutional General appearance: Present: cooperative, no acute distress - Respiratory Details: No difficulty with respiration - Gastrointestinal Gastrointestinal Comment(s): Soft, appropriate tenderness, nondistended, no rebound, no guarding, wound site is clean, dry and intact with no erythematous changes and no active drainage, omkar in place - Psychiatric Psychiatric: Present: A&O x's 3 - Labs CBC & Chem 7: 09/08/19 06:43 09/07/19 06:26 Labs: Abnormal Lab Results - Last 24 Hours (Table) 09/07/19 09/07/19 09/08/19 Range/Units 06:26 14:00 06:43 WBC 17.1 H (3.8-10.6) k/uL RBC 3.62 L (3.80-5.40) m/uL Hgb 11.1 L (11.4-16.0) gm/dL Neutrophils # 14.2 H (1.3-7.7) k/uL Iron 23 L (50-170) ug/dL Iron Saturation 7.90 L (12.00-45.00) Urine Ketones 2+ H (Negative) Assessment and Plan (1) Colon cancer Narrative/Plan: Postoperative day #5, LAR - Patient has had multiple bowel movements, and continues to have flatus - Leukocytosis is increased to 17 today, UA was noted to be negative, chest x- ray and abdominal x-ray were ordered with no evidence of free air or pneumonia, wound was examined in detail with no evidence of erythema or drainage. The patient is not having any febrile episodes, no tachycardia and no tachypnea. We will obtain a CT of the abdomen and pelvis to evaluate for any other infectious source as the source of leukocytosis is unclear at this time. - Medical recommendations appreciated - Increase activity - Progressing slowly Current Visit: Yes Status: Acute Priority: High Code(s): C18.9 - MALIGNANT NEOPLASM OF COLON, UNSPECIFIED SNOMED Code(s): 304206062
[2019-09-08] MEDS: IOPAMIDOL CONTRAST (ORAL USE) VIAL PO PRN ×2 (11:02→12:16)
[2019-09-08] MEDS: HYDROcodone/APAP 5-325MG 1 EACH TAB PO PRN ×2 (12:20→19:57)
--- NOTE | 2019-09-08 12:51 | P.PN ---
Subjective Progress Note Date: 09/08/19 Principal diagnosis: Medical management after colectomy, leukocytosis Patient was seen and examined. No acute events overnight. Patient reports mild pain at the site of incision. Dressings were changed by Dr. Padilla. She denies any chest pain, shortness of breath or palpitations. No nausea or vomiting. No fever or chills. Having multiple bowel movements. Objective - Vital Signs Vital signs: Vital Signs Temp 98.3 F 09/08/19 08:00 Pulse 84 09/08/19 08:00 Resp 17 09/08/19 08:10 BP 183/94 09/08/19 08:00 Pulse Ox 91 L 09/08/19 08:00 Intake & Output 09/07/19 09/08/19 09/08/19 18:59 06:59 18:59 Output Total 1300 1450 Balance -1300 -1450 Output: Urine 1300 1450 Other: Voiding Method Indwelling Catheter Indwelling Catheter # Bowel Movements 2 - Exam General: [non toxic], [no distress], [appears at stated age] Derm: [warm], [dry] Head: [atraumatic], [normocephalic], [symmetric] Eyes: [EOMI], [no lid lag], [anicteric sclera] Mouth: [no lip lesion], [mucus membranes moist] Cardiovascular: [S1S2 reg], [no murmur], [positive DP pulse bilateral], Lungs: [Clear to auscultation bilaterally], [no rhonchi, no rales] , [no accessory muscle use] Abdominal: [soft], [ nontender to palpation], [surgical scar midline dressing clean dry and intact no erythema], [no appreciable organomegaly] Ext: [no gross muscle atrophy], [no edema], [no contractures] Neuro: [no focal neuro deficits] Psych: [Alert], [oriented], [appropriate affect] - Labs CBC & Chem 7: 09/08/19 06:43 09/07/19 06:26 Labs: Abnormal Lab Results - Last 24 Hours (Table) 09/07/19 09/07/19 09/08/19 Range/Units 06:26 14:00 06:43 WBC 17.1 H (3.8-10.6) k/uL RBC 3.62 L (3.80-5.40) m/uL Hgb 11.1 L (11.4-16.0) gm/dL Neutrophils # 14.2 H (1.3-7.7) k/uL Iron 23 L (50-170) ug/dL Iron Saturation 7.90 L (12.00-45.00) Urine Ketones 2+ H (Negative) Assessment and Plan Assessment: Assessment and plan Colon cancer post resection with primary reanastomosis POD 3 Nicotine dependence Leukocytosis likely reactive Anemia from acute blood loss Resolved: Wheezing Recent diagnosis after screening colonoscopy. Sees Dr. Jay. Has not seen an oncologist. Plans: Patient will need adequate follow-up with GI and oncology on discharge. Cholectomy management as per surgery. Zofran as needed for nausea or vomiting. Remove Hope today. Full liquid diet and advance. Follow oncology consultation. Plans: We will offer nicotine patch. Leukocytosis of 16.5-11.6-14.5-14.3-17.1. No signs of infection. Likely reactive from surgery. Chest x-ray shows atelectasis. UA is negative. Plans: We will repeat CBC in the morning. Follow CT abdomen and pelvis. Continue incentive spirometer. Hemoglobin is 10.8-10.5-11.5-11.1. Normocytic. Patient takes B12 supplements at home. Plans: Follow B12 and folate. Transfuse if hemoglobin less than 7. [Patient is progressing well. Hope removed. CT abdomen and pelvis ordered for worsening leukocytosis. Likely DC in 1-2 days.]
--- NOTE | 2019-09-08 13:24 | CT ---
EXAMINATION TYPE: CT abdomen pelvis w con DATE OF EXAM: 09/08/2019 REFERENCE: Previous study dated 08/15/2019. HISTORY: post-op HISTORY: Post op Colon surgery REFERENCE: NONE CT DLP: 1398.3 mGy Automated exposure control for dose reduction was used. TECHNIQUE: Helical acquisition through the abdomen and pelvis was obtained following the oral ingesti on of with Oral Contrast and following intravenous administration of 100 mL of Isovue 300. The data w as reformatted in axial, coronal and sagittal projections. FINDINGS: There are atelectatic changes present at both lung bases. There is no pleural or pericardi al fluid. The heart is mildly prominent. Within the abdomen, the liver is prominent measuring 19 cm. The spleen and gallbladder are normal. There is a stable 1.5 cm right adrenal mass. Left adrenal gland is normal. There is a similar-appearing 5.5 cm cyst in the upper pole of the right kidney. There is a smaller, 1 cm cyst in the lower pole of the left kidney. The pancreas is unremarkable. There is mild to moderate atheromatous calcification of the visualized arterial tree. There is no significant retroperitoneal, inguinal or iliac adenopathy. The uterus is unremarkable. The ovaries are not visualized with certainty. The bladder is not distended. There is been a previous sigmoid resection. There is gaseous distention of the colon proximal to this . The appendix is normal. Small bowel loops are normal in caliber. There is moderate free fluid within the pelvis. No free air is identified. There is air within the soft tissues of the abdomen. This may be due to injection. There are metallic skin sutures present. There is facet arthropathy in the lower lumbar facets. IMPRESSION: 1. STATUS POST SIGMOID RESECTION. 2. BILATERAL AREAS OF PLATELIKE ATELECTASIS. 3. MILD HEPATOMEGALY. 4. MILD CARDIOMEGALY. 5. STABLE RIGHT ADRENAL MASS. 6. STABLE, SIMPLE APPEARING RIGHT RENAL CYST. 7. MODERATELY FLUID WITHIN THE PELVIS.
[2019-09-09] MEDS: KETOROLAC 30 MG/ML 1 ML VIAL IVP SCH ×2 (00:25→05:41)
[2019-09-09] MEDS: METOCLOPRAMIDE 5 MG/ML 2 ML VIAL IVP SCH ×2 (00:32→05:37)
[2019-09-09] MEDS: HYDROcodone/APAP 5-325MG 1 EACH TAB PO PRN ×2 (01:12→09:10)
[2019-09-09 07:37] VITALS: BP 182/89; PULSE 86; RESP 17; TEMP 99.2
[2019-09-09 08:34] LABS: Basophils # (A) 0.1 k/uL (0-0.2); Basophils % (A) 1 %; Eosinophils # (A) 0.6 k/uL (0-0.7); Eosinophils % (A) 3 %; HCT 33.8 % (34.0-46.0); HGB 11.4 gm/dL (11.4-16.0); Lymphocytes % (A) 6 %; MCH 32.4 pg (25.0-35.0); MCHC 33.8 g/dL (31.0-37.0); MCV 95.8 fL (80.0-100.0); Mean Platelet Volume 7.4; Monocytes # (A) 0.9 k/uL (0-1.0); Monocytes % (A) 5 %; Neutrophils # (A) 15.4 k/uL (1.3-7.7); Neutrophils % (A) 85 %; Platelet Count 383 k/uL (150-450); RBC 3.53 m/uL (3.80-5.40); RDW 13.1 % (11.5-15.5); WBC 18.2 k/uL (3.8-10.6)
[2019-09-09] MEDS: LISINOPRIL 20 MG TAB PO SCH (08:38)
[2019-09-09] MEDS: ENOXAPARIN 40 MG/0.4 ML SYRINGE SQ SCH (08:38)
--- NOTE | 2019-09-09 09:17 | P.PN ---
Subjective Progress Note Date: 09/09/19 Patient seen and examined at bedside. No acute events overnight. Tolerating her breakfast this morning. States that yesterday and this morning she has had multiple episodes of flatus and semi-formed bowel movements. She denies any blood in her stool. She denies feeling febrile. She denies any significant abdominal pain. Objective - Vital Signs Vital signs: Vital Signs Temp 99.2 F 09/09/19 07:00 Pulse 86 09/09/19 07:00 Resp 17 09/09/19 07:00 BP 182/89 09/09/19 07:00 Pulse Ox 93 L 09/09/19 07:00 Intake & Output 09/08/19 09/09/19 09/09/19 18:59 06:59 18:59 Intake Total 436 Balance 436 Intake: Oral 436 Other: Voiding Method Indwelling Catheter # Voids 2 # Bowel Movements 1 - Constitutional General appearance: Present: cooperative - EENT Eyes: Present: PERRLA - Respiratory Details: No difficulty with respiration - Gastrointestinal Gastrointestinal Comment(s): soft, appropriate tenderness, much improved distention, no rebound, no guarding - Psychiatric Psychiatric: Present: A&O x's 3 - Labs CBC & Chem 7: 09/09/19 07:27 09/07/19 06:26 Labs: Abnormal Lab Results - Last 24 Hours (Table) 09/09/19 Range/Units 07:27 WBC 18.2 H (3.8-10.6) k/uL RBC 3.53 L (3.80-5.40) m/uL Hct 33.8 L (34.0-46.0) % Neutrophils # 15.4 H (1.3-7.7) k/uL Assessment and Plan (1) Colon cancer Narrative/Plan: Postoperative day #6, LAR - Patient has had multiple bowel movements, and continues to have flatus - Leukocytosis is increased to 18 today, UA was noted to be negative, chest x- ray and abdominal x-ray were ordered with no evidence of free air or pneumonia, wound was examined in detail with no evidence of erythema or drainage. CT of the abdomen and pelvis was performed with no evidence of abscess formation, seroma formation or pneumoperitoneum. The patient continues to not have any febrile episodes or tachycardia or tachypnea. Atelectasis was again noted. There is no clear infectious source of leukocytosis. The patient is noted to be a smoker and her last cigarette use was the day before surgery. I did discuss the leukocytosis with hematology/oncology and with no evidence of an infectious source, leukocytosis is most likely reactive due to surgery and history of smoking. Otherwise, patient is surgically stable. - Medical recommendations appreciated - Increase activity - Progressing slowly Current Visit: Yes Status: Acute Priority: High Code(s): C18.9 - MALIGNANT NEOPLASM OF COLON, UNSPECIFIED SNOMED Code(s): 874044708
--- NOTE | 2019-09-09 09:23 | P.DS ---
Providers Date of admission: 09/03/19 11:26 Attending physician: Jose Padilla DO Consults: 09/03/19 15:50 Consult Physician Routine Consulting Provider: Muriel Wyatt Consult Reason/Comments: Post-op Colectomy, med mgmt Do you want consulting provider notified?: Yes 09/04/19 16:43 Consult Physician Routine Consulting Provider: Tu Harper Consult Reason/Comments: Colon ca, needs to establish care Do you want consulting provider notified?: Yes Primary care physician: Kamlesh Borrero - Discharge Diagnosis(es) (1) Colon cancer Current Visit: Yes Status: Acute Priority: High Hospital Course: 59-year-old female presented to the hospital for an elective low anterior resection secondary to finding of colon cancer on colonoscopy. Postoperatively, the patient was admitted to the medical surgical floor with an epidural and Hope catheter in place. The patient did begin to have bowel function and diet was advanced as tolerated. Hope catheter and epidural were removed per protocol. The patient was afebrile throughout her admission. She did not have any tachycardia episodes throughout her admission. Leukocytosis was noted through the admission and infectious workup was performed with chest x-ray, abdominal x-ray, urinalysis, CT of the abdomen and pelvis and physical examination with no evidence of infectious source. This was discussed with hematology/oncology and due to the patient's history of smoking and recent surgery, leukocytosis appears to be reactive as there is no clear infectious source at this time. She is surgically stable for discharge. Assessment: On exam on discharge, the patient is noted to have a midline surgical incision that is healing well with no erythematous changes and no drainage. There is appropriate tenderness to palpation in this area. Her abdomen is soft with no significant distention. She is having flatus and nonbloody bowel movements. Procedures: low anterior resection Patient Condition at Discharge: Fair Plan - Discharge Summary Discharge Rx Participant: Yes New Discharge Prescriptions: New HYDROcodone/APAP 5-325MG [Valmy 5-325] 1 each PO Q6HR PRN #15 tab PRN Reason: Pain Continue Cyanocobalamin (Vitamin B-12) [Vitamin B-12] 5,000 mcg PO DAILY Calcium Carbonate/Vitamin D3 [Calcium 600-Vit D3 400 Caplet] 2 each PO DAILY Multivitamin [Multivitamins Adult Gummies] 1 each PO DAILY Ascorbic Acid [Vitamin C] 1,000 mg PO DAILY Discharge Medication List Ascorbic Acid [Vitamin C] 1,000 mg PO DAILY 08/12/19 [History] Calcium Carbonate/Vitamin D3 [Calcium 600-Vit D3 400 Caplet] 2 each PO DAILY 08/12/19 [History] Cyanocobalamin (Vitamin B-12) [Vitamin B-12] 5,000 mcg PO DAILY 08/12/19 [History] Multivitamin [Multivitamins Adult Gummies] 1 each PO DAILY 08/12/19 [History] HYDROcodone/APAP 5-325MG [Valmy 5-325] 1 each PO Q6HR PRN #15 tab 09/09/19 [Rx] Follow up Appointment(s)/Referral(s): Tu Harper MD [STAFF PHYSICIAN] - 4 Weeks Jose Padilla DO [Doctor of Osteopathic Medicine] - 1 Week Activity/Diet/Wound Care/Special Instructions: Continue to increase activity daily Continue soft diet No lifting greater than 5 pounds Okay to shower, pat dry I did discuss the patient's leukocytosis in depth with the patient. I did recommend return to the emergency department if any febrile episodes, increase in abdominal pain or changes in clinical status. Discharge Disposition: HOME SELF-CARE
--- NOTE | 2019-09-09 11:53 | P.PN ---
Subjective Progress Note Date: 09/09/19 Principal diagnosis: Medical management after colectomy, leukocytosis Patient was seen and examined. No acute events overnight. Patient reports mild pain at the site of incision. She denies any chest pain, shortness of breath or palpitations. No nausea or vomiting. No fever or chills. at bedside. Requesting medication for smoking cessation. Objective - Vital Signs Vital signs: Vital Signs Temp 99.2 F 09/09/19 07:00 Pulse 86 09/09/19 07:00 Resp 17 09/09/19 07:00 BP 182/89 09/09/19 07:00 Pulse Ox 93 L 09/09/19 07:00 Intake & Output 09/08/19 09/09/19 09/09/19 18:59 06:59 18:59 Intake Total 436 Balance 436 Intake: Oral 436 Other: Voiding Method Indwelling Catheter Toilet # Voids 2 # Bowel Movements 1 - Exam General: [non toxic], [no distress], [appears at stated age] Derm: [warm], [dry] Head: [atraumatic], [normocephalic], [symmetric] Eyes: [EOMI], [no lid lag], [anicteric sclera] Mouth: [no lip lesion], [mucus membranes moist] Cardiovascular: [S1S2 reg], [no murmur], [positive DP pulse bilateral], Lungs: [Clear to auscultation bilaterally], [no rhonchi, no rales] , [no accessory muscle use] Abdominal: [soft], [ nontender to palpation], [surgical scar midline dressing clean dry and intact no erythema], [no appreciable organomegaly] Ext: [no gross muscle atrophy], [no edema], [no contractures] Neuro: [no focal neuro deficits] Psych: [Alert], [oriented], [appropriate affect] - Labs CBC & Chem 7: 09/09/19 07:27 09/07/19 06:26 Labs: Abnormal Lab Results - Last 24 Hours (Table) 09/09/19 Range/Units 07:27 WBC 18.2 H (3.8-10.6) k/uL RBC 3.53 L (3.80-5.40) m/uL Hct 33.8 L (34.0-46.0) % Neutrophils # 15.4 H (1.3-7.7) k/uL Assessment and Plan Assessment: Assessment and plan Colon cancer post resection with primary reanastomosis POD 3 Nicotine dependence Leukocytosis likely reactive Anemia from acute blood loss Resolved: Wheezing Recent diagnosis after screening colonoscopy. Sees Dr. Jay. Has not seen an oncologist. Plans: Patient will need adequate follow-up with GI and oncology on discharge. Cholectomy management as per surgery. Zofran as needed for nausea or vomiting. Remove Hope today. Full liquid diet and advance. Follow oncology consultation. Plans: Nicotine patch sent to pharmacy. Leukocytosis of 16.5-11.6-14.5-14.3-17.1-18.2. CT abdomen and pelvis within normal limits. No signs of infection. Likely reactive from surgery. Chest x- ray shows atelectasis. UA is negative. Plans: Repeat CBC in 3 days. Continue incentive spirometer. Hemoglobin is 10.8-10.5-11.5-11.1-11.4. Normocytic. Patient takes B12 supplements at home. Plans: Iron studies show iron deficiency. Transfuse if hemoglobin less than 7. [DC today. Repeat CBC in 3 days. Follow up with PCP, Dr. Padilla and Dr. Harper.]
--- NOTE | 2019-09-12 08:49 | CDI ---
Documentation Clarification Form Date: 09/12/2019 8:23:43 AM From: MAYURI Brambila; Jovita Avina, Level Designer Phone: If you have any questions about this query, please contact Jovita Avina, at [phone] between 8 am and 5 pm. Admit Date: 09/03/2019 11:26:00 AM Patient Name: Aida Carvajal Visit Number: [id number] Discharge Date: 09/09/2019 12:12:00 PM ATTENTION: The Clinical Documentation Specialists (CDI) and [facility] Coding Staff appreciate your assistance in clarifying documentation. Please respond to the clarification below the line at the bottom and electronically sign. The CDI & [facility] Coding staff will review the response and follow-up if needed. Please note: Queries are made part of the Legal Health Record. If you have any questions, please contact the author of this message via ITS. Dr. Jose Padilla The patient presented for bowel resection due to colon cancer. History/Risk Factors: Colon CA and history of colon polyps. Pathology: Regional lymph nodes: One of eight pericolic lymph nodes is positive for metastatic adenocarcinoma. For clarity of the final diagnosis related to the lymph nodes, please update your final diagnosis based on the pathology results. ___Colon Cancer MTDD
== END 2019-09-09 12:12 | disposition home or self-care (01) | DRG 330 ==
LOC: 2ORMAIN 11:26 → 4SSUR 15:23
PROVIDERS: ADMIT Surgery; ATTEND Surgery
PROC: 0DBN0ZZ Excision of Sigmoid Colon, Open Approach (ICD-10-PCS; principal; 2019-09-03 13:00)
DX: C18.7 Malignant neoplasm of sigmoid colon (principal); D62 Acute posthemorrhagic anemia; J98.11 Atelectasis; D72.829 Elevated white blood cell count, unspecified; E61.1 Iron deficiency; F17.200 Nicotine dependence, unspecified, uncomplicated
CPT/HCPCS: 71045; 74022; 74177; 80048; 80053; 81003; 82728; 83540; 83550; 85025; 86850; 86900; 86901; 88309; 94760

== ENCOUNTER → 2020-03-04 | Outpatient (CLI) | payer BC ==
[2020-03-04 14:32] LABS: African American GFR (CKD) >90 (>60 ml/min/1.73 sqM); Blood Urea Nitrogen 21 mg/dL (7-17); Non-African American GFR(CKD) 86 (>60 ml/min/1.73 sqM)
--- NOTE | 2020-03-04 15:12 | CT ---
EXAMINATION TYPE: CT abdomen pelvis w con DATE OF EXAM: 03/04/2020 COMPARISON: 09/08/2019 HISTORY: abdominal bloating, history of colon ca CT DLP: 1537.1 mGycm CONTRAST: CT scan of the abdomen and pelvis is performed with Oral Contrast and with IV Contrast, patient injec dina with 100 mL of Isovue 300. FINDINGS: LUNG BASES-: No visible nodule. Basilar parenchymal scarring and atelectasis noted. LIVER/GB: [place]addock steatosis with hepatomegaly. The gallbladder is filled with gallstones. No space oc cupying hepatic lesion. Biliary tree is of normal caliber. PANCREAS: No inflammation. No distinct mass. SPLEEN: No splenic enlargement. No lesion seen. ADRENALS: No nodule. No thickening. KIDNEYS/BLADDER: No hydronephrosis. No nephrolithiasis. Stable right-sided renal cyst. Urinary blad leigh grossly unremarkable. BOWEL: Normal bowel caliber. No inflammation. Postoperative changes seen about the sigmoid colon. No evidence for recurrent mass. GENITAL ORGANS: Lobulated appearance of the uterus may reflect underlying leiomyomatous change. No a dnexal masses seen. LYMPH NODES: No greater than 1cm abdominal or pelvic lymph nodes are appreciated. AORTA: No significant abnormality. OSSEOUS STRUCTURES: No significant abnormality is seen. OTHER: No significant additional abnormality is seen. IMPRESSION: 1. Postoperative changes seen about the sigmoid colon. No evidence for recurrent mass. 2. Hepatomegaly with underlying hepatic steatosis. 3. Cholelithiasis.
== END | disposition home or self-care (01) ==
LOC: RADCTMAIN 12:37
PROVIDERS: ATTEND Internal Medicine Hematology & Oncology
DX: R16.0 Hepatomegaly, not elsewhere classified (principal); K76.0 Fatty (change of) liver, not elsewhere classified; C18.9 Malignant neoplasm of colon, unspecified; K80.20 Calculus of gallbladder without cholecystitis without obstruction; R14.0 Abdominal distension (gaseous); Z98.890 Other specified postprocedural states
CPT/HCPCS: 82565; 84520; 74177; 36415; Q9967

== ENCOUNTER → 2020-05-06 | Outpatient (CLI) | payer BC ==
--- NOTE | 2020-05-07 07:00 | CT ---
EXAMINATION TYPE: CT ChestAbdPelvis w con DATE OF EXAM: 05/06/2020 COMPARISON: CT abdomen and pelvis March 04, 2020 and older CTs HISTORY: Follow up for colon cancer. Patient also complaining of back pain. CT DLP: 1998.2 mGycm. Automated Exposure Control for Dose Reduction was Utilized. CONTRAST: CT scan of the thorax, abdomen and pelvis is performed with oral and with IV Contrast, patient inject ed with 100ml mL of Isovue 300. FINDINGS: LUNGS: There is 7 mm calcified nodule or granuloma anterior right mid lung axial image 30. Mild linea r atelectasis and/or scarring in the posterior bases just above the diaphragm. No suspicious greater than 4 mm noncalcified pulmonary nodules or masses. No pleural effusion or pneumothorax seen bilatera lly. MEDIASTINUM: There are no greater than 1 cm noncalcified hilar or mediastinal lymph nodes. No cardi omegaly or pericardial effusion is seen. OTHER: There is right subclavian Mediport catheter terminating in the right brachiocephalic vein befo re SVC origin. LIVER/GB: Redemonstration of hepatomegaly and/or prominent right hepatic lobe with low density sugges ting fatty infiltration. Stone filled somewhat contracted gallbladder redemonstrated. PANCREAS: No significant abnormality is seen. SPLEEN: No significant abnormality is seen. ADRENALS: Stable nonspecific anterior limb 1.9 x 1.2 cm right adrenal mass axial image 54 not signifi cantly changed from prior CTs. KIDNEYS: Stable simple appearing 5.8 cm thin-walled cyst laterally right kidney midpole level axial i mage 65. There is occasional subcentimeter hypodense lesion bilaterally presumed benign. No hydroneph rosis bilaterally. BOWEL: The oral contrast reaches level of the transverse colon. There is no suspicious small or large bowel dilatation. Surgical sutures at level of sigmoid rectal colon in the pelvis axial image 98 are redemonstrated. GENITAL ORGANS: Anteverted uterus projects to left of midline. Persistent lobulated contour suggests underlying fibroids. LYMPH NODES: No greater than 1cm abdominal or pelvic lymph nodes are appreciated. OSSEOUS STRUCTURES: Sclerosis at level of pubic symphysis presumed degenerative redemonstrated. Facet arthropathy lower lumbar levels. OTHER: Moderate plaque of the abdominal aorta extends into iliac branch vessels. IMPRESSION: No enlarging or new suspicious mass or adenopathy to suggest neoplastic recurrence. No a cute findings seen to account for patient's symptoms of back pain.
== END | disposition home or self-care (01) ==
LOC: RADCTMAIN 16:26
PROVIDERS: ATTEND Internal Medicine Hematology & Oncology
DX: C18.9 Malignant neoplasm of colon, unspecified (principal)
CPT/HCPCS: 82565; 84520; 71260; 74177; 36415; Q9967

== ENCOUNTER → 2020-07-22 | Outpatient (CLI) | payer BC ==
--- NOTE | 2020-07-22 10:04 | BD ---
EXAMINATION TYPE: Axial Bone Density DATE OF EXAM: 07/22/2020 COMPARISON: 04.15.2014 CLINICAL HISTORY: 60 YR OLD FEMALE.....ICD-10 CODE: M89.9 BONE DISORDER Height: 62.3 Weight: 216 FRAX RISK QUESTIONS: NOTHING ADDITONAL TO ADD HERE Current Tobacco Use: QUIT LAST AUGUST 2019 RISK FACTORS HISTORY OF: Postmenopausal woman: YES AT 47 YRS OLD Hyperparathyroidism: NO Adrenal Insufficiency: NO MEDICATIONS: Additional Medications: CALCIUM WITH D, BP MED, HX OF CHEMO Additional History: COLON RESECTION, HX OF CALEB CA, OSTEOARTHRITIS EXAM MEASUREMENTS: Bone mineral densitometry was performed using the [employer] System. Bone mineral density as measured about the Lumbar spine is: ----- L1-L4(G/cm2): 0.963 T Score Values are as follows: ----- L1: -1.3 ----- L2: -1.8 ----- L3: -2.7 ----- L4: -1.6 ----- L1-L4: -1.8 Bone mineral density has: Increased 3.6% since study of: 04.15.2014 Bone mineral density about the R hip (g/cm2): 0.933 Bone mineral density about the L hip (g/cm2): 0.894 T Score values are as follows: -----R Neck: -1.0 -----L Neck: -1.4 -----R Total: -0.6 -----L Total: -0.9 Bone mineral density has: Decreased -0.1% since study of: 04.15.2014 FRAX%s: THERE IS A 7.3% CHANCE FOR A MAJOR OSTEOPOROTIC FX AND A 1.0% FOR HIP....PROBABILITY FOR FX IN 10 YRS TIME IMPRESSION: Osteopenia lumbar spine. NOTE: T-SCORE=SD OF THE YOUNG ADULT MEAN.
== END | disposition home or self-care (01) ==
LOC: RADBDWWP 08:07
PROVIDERS: ATTEND Internal Medicine
DX: M85.88 Other specified disorders of bone density and structure, other site (principal)
CPT/HCPCS: 77080

== ENCOUNTER → 2020-08-05 | Outpatient (CLI) | payer BC ==
--- NOTE | 2020-08-05 10:53 | CT ---
EXAMINATION TYPE: CT ChestAbdPelvis w con DATE OF EXAM: 08/05/2020 COMPARISON: 05/06/2020 HISTORY: Colon cancer CT DLP: 1900.60 mGycm Automated exposure control for dose reduction was used. CONTRAST: CT scan of the chest, abdomen and pelvis is performed with Oral Contrast and with IV Contrast, patien t injected with 100 ml mL of Isovue 300. FINDINGS: LUNGS: The lungs are grossly clear, there is no concerning parenchymal mass or nodule identified. T here is no pleural effusion or pneumothorax seen. The tracheobronchial tree is patent. Stable 7 mm c alcified granuloma right midlung. Stable 1 mm subpleural nodule left upper lobe laterally image 16. Finding 2 small to characterize lik aliza benign. Stable 2 mm subpleural nodule anterolaterally right upper lobe unchanged from the prior exam. Stable superior segment left lower lobe pulmonary nodule unchanged from the prior exam. Stable left apical posterior segment left upper lobe pulmonary nodule measuring 4 mm. MEDIASTINUM: There are no greater than 1 cm hilar or mediastinal lymph nodes. No pericardial effusi on is seen. OTHER: No additional significant abnormality is seen. LIVER/GB: Liver remains enlarged measuring 27 cm. Low attenuation is seen diffusely without evidence of discrete mass. Correlate for hepatic steatosis. PANCREAS: No significant abnormality is seen. SPLEEN: No significant abnormality is seen. ADRENALS: Stable indeterminate right adrenal nodule measuring 1.8 cm unchanged dating back to 08/15/20 19. Therefore likely related to incidental adenoma.. KIDNEYS: Stable simple appearing right renal cyst. Additional hypodensities within the left kidney to o small to characterize. Statistically most likely related to cysts. BOWEL: Bowel gas pattern nonspecific. Small hiatal hernia noted. LYMPH NODES: No greater than 1 cm abdominal or pelvic lymph nodes are appreciated. OSSEOUS STRUCTURES: Hypertrophic changes of the vertebral column. No destructive changes. Osteitis pu bis condensans noted. Tiny punctate sclerotic density overlying the left acetabular roof due to small to characterize but likely related to bone island. OTHER: There is a [place] anterior abdominal wall hernia. No evidence of bowel obstruction. There i s a degree of lobulation of the uterus which could be associated with uterine fibroids similar in eliseo earance to the prior exam. Atherosclerotic change of the aorta but no evidence of aneurysm. IMPRESSION: 1. Stable multiple bilateral pulmonary nodules the largest of which measures 7 mm and appears to be p artially calcified. No new pulmonary nodules. 2. No pathologic adenopathy. 3. Hepatomegaly correlate for hepatic steatosis. 4. Anterior abdominal wall hernia containing bowel loops with no evidence of bowel obstruction. 5. Stable right adrenal nodule measuring 1.6 cm unchanged from 08/15/2019 and therefore likely related to adenoma.
== END | disposition home or self-care (01) ==
LOC: RADCTMAIN 07:48
PROVIDERS: ATTEND Internal Medicine Hematology & Oncology
DX: C18.9 Malignant neoplasm of colon, unspecified (principal); R91.8 Other nonspecific abnormal finding of lung field; K43.9 Ventral hernia without obstruction or gangrene; R16.0 Hepatomegaly, not elsewhere classified
CPT/HCPCS: 71260; 74177; Q9967

== ENCOUNTER → 2020-08-14 | Outpatient (CLI) | payer BC ==
--- NOTE | 2020-08-17 09:22 | MM ---
Reason for exam: screening (asymptomatic). Last mammogram was performed 1 year ago. History: Patient is postmenopausal and has history of colon cancer at age 59. Benign left mammotome panel of the left breast, May 19, 2008. Physical Findings: A clinical breast exam by your physician is recommended on an annual basis and results should be correlated with mammographic findings. MG Screening Mammo w CAD Bilateral CC and MLO view(s) were taken. Prior study comparison: August 13, 2019, bilateral MG screening mammo w CAD. April 20, 2015, bilateral MG screening mammo w CAD. The breast tissue is heterogeneously dense. This may lower the sensitivity of mammography. Finding: There are typically benign vascular, round calcifications in both breasts. Previous mammotome biopsy in the left breast. There is no discrete abnormality. ASSESSMENT: Benign, BI-RAD 2 RECOMMENDATION: Routine screening mammogram of both breasts in 1 year.
== END | disposition home or self-care (01) ==
LOC: RADMAMWWP 10:28
PROVIDERS: ATTEND Internal Medicine
DX: Z12.31 Encounter for screening mammogram for malignant neoplasm of breast (principal)
CPT/HCPCS: 77067

== ENCOUNTER → 2020-10-28 | Outpatient (CLI) | payer BC ==
--- NOTE | 2020-10-28 20:35 | CT ---
EXAMINATION TYPE: CT ChestAbdPelvis w con DATE OF EXAM: 10/28/2020 INDICATION: Colon cancer COMPARISON: CT chest abdomen pelvis 08/05/2020 CT DLP: 2666.4 mGycm CONTRAST: Performed with Oral Contrast and with IV Contrast, patient injected with 80 mL of Isovue 300. TECHNIQUE: Axial images at 5 mm thick sections. Reconstructed images in the coronal plane. Delayed images through the kidneys. FINDINGS: CT CHEST: Portion of the thyroid visualized is normal. There is a 0.8 cm nodule within the periphery of the right middle lobe. Series 4 [address] able from comparison No enlarged mediastinal or hilar adenopathy is evident. The ascending aorta diameter at the level of the main pulmonary artery is 3.2 cm. The main pulmonary artery diameter at the bifurcation is 2.[address] ABDOMEN: Liver: There is mild fatty infiltration of the liver. Spleen: Normal Pancreas: Normal Adrenal glands: Right adrenal gland nodule currently is estimated at 1.6 cm. No interval growth is ev ident. Gallbladder: Cholelithiasis Kidneys: No masses are evident. No hydronephrosis is present. Cysts are present on the bilateral ki dneys. The largest in the posterior lateral right mid kidney measuring 6.0 cme and 11 Hounsfield unit s. Delayed images were obtained through the kidneys. No new findings are evident Aorta: Vascular calcification is within the aorta. Inferior vena cava: Normal. CT PELVIS: There is an anterior abdominal wall hernia within the mid pelvic region. Loops of nondilat ed small bowel loop containing contrast are present. The opening is 6.6 cm. Loops of bowel within the abdomen and pelvis are normal. There are loops of bowel which are incom pletely distended or lack oral contrast limiting their evaluation. Appendix: Normal as visualized. Urinary bladder: Normal. Genitourinary structures: Uterine fibroid may be within the fundus. Adnexal regions are normal. Osseous structures: No suspicious lytic or sclerotic lesions. IMPRESSIONS: 1. Stable 0.8 cm nodule right middle lobe. 2. Anterior abdominal wall hernia containing small bowel loops without obstruction. 3. Suspected uterine fibroid.
== END | disposition home or self-care (01) ==
LOC: RADCTMAIN 09:05
PROVIDERS: ATTEND Internal Medicine Hematology & Oncology
DX: R91.1 Solitary pulmonary nodule (principal); K43.9 Ventral hernia without obstruction or gangrene; C18.9 Malignant neoplasm of colon, unspecified
CPT/HCPCS: 82565; 84520; 71260; 74177; 36415; Q9967

== ENCOUNTER → 2021-01-28 | Outpatient (CLI) | payer BC ==
--- NOTE | 2021-01-28 12:54 | CT ---
EXAMINATION TYPE: CT ChestAbdPelvis w con DATE OF EXAM: 01/28/2021 COMPARISON: 10/28/2020 and 08/05/2020 HISTORY: 60-year-old female C1 8.9, colon CA TECHNIQUE: Contiguous axial scanning of the chest, abdomen, and pelvis performed with IV Contrast, pa tient injected with 100 mL of Isovue 300. Delayed images through the kidneys were obtained. Coronal/s agittal reconstructions performed. CT DLP: 2250 mGycm Automated exposure control for dose reduction was used. FINDINGS: CHEST: The heart is normal size without pericardial effusion. Mild aortic valve calcifications. Aorta normal caliber with bovine configuration to the aortic arch and mild atherosclerotic arch calci fications. Scattered nonenlarged mediastinal lymph nodes. No thoracic adenopathy by CT size criteria. Minimal centrilobular emphysema. No consolidation or pleural effusion. A few scattered pulmonary nodules are unchanged. The largest is partially calcified measuring 8 mm in the anterior right midlung and the second largest is 6 mm in the posterior left upper lobe. No new o r enlarging pulmonary nodules. ABDOMEN: Liver enlarged at 21.0 cm. Low attenuation of the hepatic parenchyma. Portal venous system is patent. No blurry ductal dilatation. Numerous small layering calculi in the gallbladder. A 1.7 x 1.3 cm right adrenal nodule appears unchanged. 6.1 cm lateral right renal cyst and redemonstrated a couple small cortical cysts all in the lower hernandez e of the left kidney. Spleen and pancreas appear within normal limits as does the left adrenal gland. No dilated small bowel, free fluid, or free air. No mesenteric or retroperitoneal lymphadenopathy. Or al contrast progressed to the ascending colon. There is scattered moderate stool. Staple line at the rectosigmoid junction from prior resection and end to side anastomosis. Normal appendix. Redemonstrated infraumbilical rectus diastases with bulging nonobstructed small bowel loops. The abdo eleno wall defect measures 7.9 cm wide. PELVIS: Mild circumferential bladder wall thickening. Uterus anteverted. Both ovaries are visualized. No abno rmal fluid collection in the pelvis or pelvic lymphadenopathy seen. BONES: Osteitis pubis. Facet arthropathy lower lumbar spine. No osseous destructive process. IMPRESSION: 1. A FEW SCATTERED PULMONARY NODULES, LARGEST MEASURING UP TO 8 MM REMAIN UNCHANGED BACK TO AT LEAST 08/05/2020. 2. PREVIOUS COLON RESECTION AND REANASTOMOSIS AT THE RECTOSIGMOID JUNCTION. NO FINDINGS OF RECURRENT OR METASTATIC DISEASE. 3. COPD WITH MINIMAL EMPHYSEMA, HEPATOMEGALY WITH HEPATIC STEATOSIS, STABLE 1.7 CM RIGHT ADRENAL NODU LE, AND STABLE INFRAUMBILICAL RECTUS DIASTASES.
== END ==
LOC: RADCTMAIN 09:26
PROVIDERS: ATTEND Internal Medicine Hematology & Oncology
DX: C18.9 Malignant neoplasm of colon, unspecified (principal); R91.8 Other nonspecific abnormal finding of lung field; J44.9 Chronic obstructive pulmonary disease, unspecified; R16.0 Hepatomegaly, not elsewhere classified; K76.0 Fatty (change of) liver, not elsewhere classified; E27.9 Disorder of adrenal gland, unspecified
CPT/HCPCS: 82565; 84520; 71260; 74177; 36415; Q9967

== ENCOUNTER → 2021-05-26 | Outpatient (CLI) | payer BC | END | disposition home or self-care (01) | CPT/HCPCS: 36415; 71250; 74176; 82565; 84520 ==

== ENCOUNTER → 2021-10-06 | Outpatient (CLI) | payer BC ==
--- NOTE | 2021-10-06 14:11 | CT ---
EXAMINATION TYPE: CT ChestAbdPelvis w con DATE OF EXAM: 10/06/2021 COMPARISON: Most recent CT May 26, 2021 and older studies HISTORY: Follow up colon cancer. CT DLP: 2318.8 mGycm. Automated Exposure Control for Dose Reduction was Utilized. CONTRAST: CT scan of the thorax, abdomen and pelvis is performed with oral and with IV Contrast, patient inject ed with 80 mL of Isovue 300. FINDINGS: LUNGS: Mild underlying emphysematous changes redemonstrated. There is stable 7 mm calcified nodule or granuloma anterior right mid lung axial image 26 current study. Stable 7 x 5 mm noncalcified posteri or left upper lung nodule axial image 15. No suspicious new greater than 5 mm noncalcified pulmonary nodules or masses. No pleural effusion or pneumothorax seen bilaterally. MEDIASTINUM: There are no new greater than 1 cm noncalcified hilar or mediastinal lymph nodes. Stable prominent 1.5 x 0.8 cm AP window lymph node axial image 21. No cardiomegaly or pericardial effusion is seen. Mild calcified plaque of the aorta extends into branch vessels. LIVER/GB: Redemonstration of hepatomegaly and/or prominent right hepatic lobe with low density sugges ting fatty infiltration. Stone filled somewhat contracted gallbladder redemonstrated. PANCREAS: No significant abnormality is seen. SPLEEN: No significant abnormality is seen. ADRENALS: Stable nonspecific anterior limb 1.9 x 1.2 cm right adrenal mass axial image 51 not signifi cantly changed from prior CTs. KIDNEYS: Stable simple appearing 5.6 cm thin-walled cyst laterally right kidney midpole level axial i mage 65. There is occasional subcentimeter hypodense lesion bilaterally presumed benign. No hydroneph rosis bilaterally. BOWEL: The oral contrast reaches level of the proximal sigmoid colon current study. There is no suspi cious small or large bowel dilatation. Surgical sutures at level of distal sigmoid colon in the pelvi s axial image 96 are redemonstrated. Redemonstration of infraumbilical rectal diastases with bulging mesenteric fat and nonobstructed contrast filled small bowel loops into the anterior pelvic subcutane ous tissue. No significant change from most recent studies. GENITAL ORGANS: Anteverted uterus redemonstrated. Persistent lobulated contour anteriorly suggests un derlying fibroids. LYMPH NODES: No new greater than 1cm abdominal or pelvic lymph nodes are appreciated. OSSEOUS STRUCTURES: Sclerosis at level of pubic symphysis presumed degenerative redemonstrated. Facet arthropathy lower lumbar levels. OTHER: Mild to moderate plaque of the abdominal aorta extends into iliac branch vessels. IMPRESSION: No enlarging or new suspicious mass or adenopathy to suggest neoplastic recurrence.
== END | disposition home or self-care (01) ==
LOC: RADCTMAIN 11:06
PROVIDERS: ATTEND Internal Medicine Hematology & Oncology
DX: Z03.89 Encounter for observation for other suspected diseases and conditions ruled out (principal); C18.9 Malignant neoplasm of colon, unspecified
CPT/HCPCS: 82565; 84520; 71260; 74177; 36415; Q9967

== ENCOUNTER → 2021-10-19 | Outpatient (CLI) | payer BC ==
--- NOTE | 2021-10-22 09:41 | MM ---
Reason for exam: screening (asymptomatic). Last mammogram was performed 1 year and 2 months ago. History: Patient is postmenopausal and has history of colon cancer at age 59. Benign left mammotome panel of the left breast, May 19, 2008. Physical Findings: A clinical breast exam by your physician is recommended on an annual basis and results should be correlated with mammographic findings. MG Screening Mammo w CAD Bilateral CC and MLO view(s) were taken. Prior study comparison: August 14, 2020, bilateral MG screening mammo w CAD. August 13, 2019, bilateral MG screening mammo w CAD. The breast tissue is heterogeneously dense. This may lower the sensitivity of mammography. There is no discrete abnormality. No significant changes when compared with prior studies. ASSESSMENT: Negative, BI-RAD 1 RECOMMENDATION: Routine screening mammogram of both breasts in 1 year.
== END | disposition home or self-care (01) ==
LOC: RADMAMWWP 08:09
PROVIDERS: ATTEND Family Medicine
DX: Z12.31 Encounter for screening mammogram for malignant neoplasm of breast (principal)
CPT/HCPCS: 77067

== ENCOUNTER → 2022-08-17 | Outpatient (CLI) | payer BC ==
--- NOTE | 2022-08-18 07:34 | CT ---
EXAMINATION TYPE: CT ChestAbdPelvis wo con DATE OF EXAM: 08/17/2022 INDICATION: Malignant neoplasm of colon COMPARISON: 02/07/2022 CT DLP: 1654.9 mGycm CONTRAST: Performed with Oral Contrast. No intravenous contrast due to renal function status today. TECHNIQUE: Axial images at 5 mm thick sections. Reconstructed images in the coronal plane. Delayed images through the kidneys. FINDINGS: CT CHEST: Portion of the thyroid visualized is normal. Small pneumatocele is within the anterior right upper lung field. There is a new punctate nodule within the periphery of the right anterior lateral lung measuring 0.4 cm. Series 4 image 14. Couple of new punctate peripheral nodules are present, series 4 image 15. Small stable nodule may be within the posterior left upper lung field measuring 0.4 cm. Series 4 imag e 17. There is a stable nodule with internal calcification periphery of the anterior right upper lung field is 0.9 cm. Series 4 image 20. A stable 0.5 cm nodule is in the posterior left lung, series 4 i mage 13. No enlarged mediastinal or hilar adenopathy is evident. The ascending aorta diameter at the level of the main pulmonary artery is 3.3 cm. The main pulmonary artery diameter at the bifurcation is 2.5 cm. Coronary artery calcification is present. CT ABDOMEN: Liver: Normal Spleen: Normal Pancreas: Normal Adrenal glands: A 1.4 cm nodules on the lateral right adrenal gland. This was present previously. Lef t adrenal gland appears normal Gallbladder: Gallstones are present. Kidneys: No masses are evident.. No hydronephrosis is present. There is a 6.9 cm cyst in the platform builder ior lateral right kidney measuring 9 Hounsfield units. Punctate nonobstructing renal stones in the mi d posterior right kidney. Tiny cyst at the posterior-inferior portable left kidney measuring 1.3 cm. Delayed images were obtained through the kidneys, which remain unremarkable. Aorta: Vascular calcification is within the aorta. Inferior vena cava: Normal. CT PELVIS: There is an anterior abdominal wall hernia just below the umbilicus with nondilated contra st-filled small bowel loops. Loops of bowel within the abdomen and pelvis are normal. Fecal debris is within the distal colon. Pos tsurgical changes are at the distal colon There are loops of bowel which are incompletely distende d or lack oral contrast limiting their evaluation. Appendix: Normal as visualized. Urinary bladder: Normal. Genitourinary structures: Uterus and adnexa as visualized are normal. Osseous structures: No suspicious lytic or sclerotic lesions. There is some sclerosis of the pubic sy mphysis. IMPRESSIONS: 1. Couple of new punctate nodules within the right lung. Left lung nodules appear stable. Close follo w-up is recommended. Metastatic cannot be excluded. 2. Renal cysts. 3. Anterior abdominal wall hernia with nonobstructed small bowel loops. 4. Stable nodule right adrenal gland. 5. Cholelithiasis.
== END | disposition home or self-care (01) ==
LOC: RADCTMAIN 07:19
PROVIDERS: ATTEND Internal Medicine Hematology & Oncology
DX: Z03.89 Encounter for observation for other suspected diseases and conditions ruled out (principal); C18.9 Malignant neoplasm of colon, unspecified
CPT/HCPCS: 82565; 84520; 71250; 74176; 36415; Q9967

== ENCOUNTER → 2022-10-25 | Outpatient (CLI) | payer BC ==
--- NOTE | 2022-10-26 08:54 | MM ---
Reason for Exam: Screening (asymptomatic). Last mammogram was performed 1 year(s) and 1 month(s) ago. Patient History: Menarche at age 8. First Full-Term at age 18. Postmenopausal. Colorectal cancer, age 59. 05/19/2008, Benign Core Biopsy on the left side. Risk Values: Regina 5 year model risk: 1.9%. NCI Lifetime model risk: 7.5%. Prior Study Comparison: 08/13/2019 Bilateral Screening Mammogram, [facility]. 08/14/2020 Bilateral Screening Mammogram, [facility]. 10/19/2021 Bilateral Screening Mammogram, [facility]. Tissue Density: The breast tissue is heterogeneously dense. This may lower the sensitivity of mammography. Findings: Analyzed By CAD. Benign-appearing vascular calcification bilaterally is redemonstrated. There is no suspicious group of microcalcifications or new suspicious mass in either breast. Overall Assessment: Negative, BI-RAD 1 Management: Screening Mammogram of both breasts in 1 year. A clinical breast exam by your physician is recommended on an annual basis and results should be correlated with mammographic findings. Electronically signed and approved by: Gene Campbell M.D.
== END | disposition home or self-care (01) ==
LOC: RADMAMWWP 11:04
PROVIDERS: ATTEND Family Medicine
DX: Z12.31 Encounter for screening mammogram for malignant neoplasm of breast (principal); Z78.0 Asymptomatic menopausal state; Z98.890 Other specified postprocedural states
CPT/HCPCS: 77067

== ENCOUNTER → 2023-02-13 | Outpatient (CLI) | payer MEDICARE ==
--- NOTE | 2023-02-13 14:50 | CT ---
EXAMINATION TYPE: CT ChestAbdPelvis w con DATE OF EXAM: 02/13/2023 COMPARISON: Prior CT August 17, 2022 and older studies. HISTORY: obs for mets. hx of colon ca CT DLP: 2458.2 mGycm. Automated Exposure Control for Dose Reduction was Utilized. CONTRAST: CT scan of the thorax, abdomen and pelvis is performed with oral and with IV Contrast, patient inject ed with 75 mL of Isovue 300. FINDINGS: LUNGS: Mild underlying emphysematous changes are redemonstrated. There is stable 7 mm calcified nodul e or granuloma anterior right mid lung axial image 27 current study. Stable 6 mm noncalcified posteri or left upper lung nodule axial image 14. There is stable 6 x 3 mm left upper lobe nodule axial image 19. Stable 2 to 3 mm peripheral left lower lobe nodule axial image 42. No new or enlarging greater t galindo 5 mm pulmonary nodules. No pleural effusion or pneumothorax seen bilaterally. MEDIASTINUM: There are no new greater than 1 cm noncalcified hilar or mediastinal lymph nodes. Stable prominent 1.5 x 0.8 cm AP window lymph node axial image 21. No cardiomegaly or pericardial effusion is seen. Mild calcified plaque of the aorta extends into branch vessels. LIVER/GB: Redemonstration of hepatomegaly and/or prominent right hepatic lobe with diffuse low densit y suggesting fatty infiltration. Numerous dependent gallstones in the gallbladder redemonstrated. PANCREAS: No significant abnormality is seen. SPLEEN: No significant abnormality is seen. ADRENALS: Stable nonspecific anterior limb 1.8 x 1.2 cm right adrenal mass axial image 51 not signifi cantly changed from prior CTs. KIDNEYS: Stable simple appearing 6.7 cm thin-walled cyst laterally right kidney midpole level axial i mage 63. There is occasional subcentimeter hypodense lesion bilaterally presumed benign redemonstrate d. No hydronephrosis bilaterally. BOWEL: The oral contrast reaches level of the mid transverse colon current study. There is no suspici ous small or large bowel dilatation. Surgical sutures at level of distal sigmoid colon in the pelvis axial image 93 are redemonstrated. Redemonstration of infraumbilical rectal diastases with bulging me senteric fat and nonobstructed contrast filled small bowel loops into the anterior pelvic subcutaneou s tissue. No significant change from most recent studies. GENITAL ORGANS: Anteverted uterus redemonstrated. Persistent lobulated contour anteriorly sagittal im age 72 suggests underlying fibroids. LYMPH NODES: No new greater than 1cm abdominal or pelvic lymph nodes are appreciated. OSSEOUS STRUCTURES: Sclerosis at level of pubic symphysis presumed degenerative redemonstrated. Facet arthropathy lower lumbar levels. OTHER: Moderate plaque of the abdominal aorta extends into iliac branch vessels. IMPRESSION: No enlarging or new suspicious mass or adenopathy to suggest active neoplastic recurrence . No Significant change from most recent prior CTs.
== END | disposition home or self-care (01) ==
LOC: RADCTMAIN 12:27
PROVIDERS: ATTEND Internal Medicine Hematology & Oncology
DX: C18.9 Malignant neoplasm of colon, unspecified (principal); Z03.89 Encounter for observation for other suspected diseases and conditions ruled out
CPT/HCPCS: 82565; 84520; 71260; 74177; 36415; Q9967

== ENCOUNTER 2023-12-19 13:53 | Inpatient (IN) | payer MEDICARE ==
--- NOTE | 2023-12-19 14:23 | ED ---
General Adult HPI - General Chief complaint: Arrhythmia/Palpitations Stated complaint: Low heart rate Time Seen by Provider: 12/19/23 14:12 Source: patient, family, RN notes reviewed Mode of arrival: EMS Limitations: no limitations - History of Present Illness Initial comments: Patient is a pleasant 63-year-old female presenting to the emergency department with concerns for low heart rate. Patient has had episodes of lightheadedness over the past 2 days. Patient is symptom-free at this time. Patient did have a visiting nurse evaluate her and found heart rate to be low. Patient was advised come the emergency department. Patient denies any palpitations. No chest pain. No isolated area of weakness or confusion. - Related Data Home Medications Medication Instructions Recorded Confirmed Ascorbic Acid [Vitamin C] 1,000 mg PO DAILY 08/12/19 03/18/20 Calcium Carbonate/Vitamin D3 2 each PO DAILY 08/12/19 03/18/20 [Calcium 600-Vit D3 400 Caplet] Cyanocobalamin (Vitamin B-12) 5,000 mcg PO DAILY 08/12/19 03/18/20 [Vitamin B-12] Multivitamin [Multivitamins Adult 1 each PO DAILY 08/12/19 03/18/20 Gummies] Fenofibrate Nanocrystallized 145 mg PO 03/16/22 [Fenofibrate] Lisinopril/Hydrochlorothiazide 1 each PO 03/16/22 [Zestoretic 10-12.5] metFORMIN HCL 500 mg PO DAILY 03/16/22 03/16/22 Allergies Allergy/AdvReac Type Severity Reaction Status Date / Time No Known Allergies Allergy Verified 03/18/20 09:51 Review of Systems ROS Statement: Those systems with pertinent positive or pertinent negative responses have been documented in the HPI. ROS Other: All systems not noted in ROS Statement are negative. Constitutional: Denies: fever Eyes: Denies: eye pain ENT: Denies: ear pain Respiratory: Denies: cough Cardiovascular: Reports: as per HPI. Denies: chest pain, palpitations Endocrine: Denies: fatigue Gastrointestinal: Denies: abdominal pain Genitourinary: Denies: dysuria Past Medical History Past Medical History: Atrial Fibrillation, Cancer, Pneumonia, Renal Disease Additional Past Medical History / Comment(s): colon cancer History of Any Multi-Drug Resistant Organisms: None Reported Past Surgical History: Bowel Resection, Hernia Repair Additional Past Surgical History / Comment(s): FRONT TEETH EXTRACTIONS Past Anesthesia/Blood Transfusion Reactions: No Reported Reaction Additional Past Anesthesia/Blood Transfusion Reaction / Comment(s): DENTAL PROCEDURE ONLY Past Psychological History: No Psychological Hx Reported Smoking Status: Former smoker - Past Family History Mother Family Medical History: No Reported History General Exam Limitations: no limitations General appearance: alert, in no apparent distress Head exam: Present: normocephalic Eye exam: Present: normal appearance Neck exam: Present: normal inspection Respiratory exam: Present: normal lung sounds bilaterally Cardiovascular Exam: Present: bradycardia Expanded Peripheral pulses: 2+: Radial (R), Radial (L) GI/Abdominal exam: Present: soft. Absent: tenderness Extremities exam: Present: pedal edema (+2 bilateral, patient states chronic and unchanged). Absent: calf tenderness Neurological exam: Present: alert Psychiatric exam: Present: normal affect, normal mood Skin exam: Present: normal color Course Vital Signs 12/19/23 12/19/23 12/19/23 14:00 14:27 14:29 Temperature 97.5 F L Pulse Rate 35 L 34 L Pulse Rate [ 34 L [employer] ] Respiratory 16 18 Rate Blood Pressure 102/45 87/68 O2 Sat by Pulse 96 95 Oximetry 12/19/23 12/19/23 14:34 14:52 Temperature Pulse Rate 34 L 35 L Pulse Rate [ [employer]man ] Respiratory 18 18 Rate Blood Pressure 101/57 106/82 O2 Sat by Pulse 94 L 94 L Oximetry EKG Findings - EKG Results: EKG: interpreted by ERMD (Neuro complex bradycardia with rate of 36. Septal Q waves.), normal axis, normal ST/T Medical Decision Making - Medical Decision Making EKG #2 also interpreted by myself shows narrow complex bradycardia with a rate of 34. Normal axis. Septal Q waves. No acute ST change. QTC 447 Case was discussed with Dr. Maxwell with cardiology, who will consult Was pt. sent in by a medical professional or institution (, PA, LOSS PREVENTION INVESTIGATOR, urgent care, hospital, or longterm...) When possible be specific @ -No Did you speak to anyone other than the patient for history (EMS, parent, family, police, friend...)? What history was obtained from this source @ -Family is present and helps provide history including new medications of beta brittani and calcium channel brittani. They were started a couple months ago. Did you review nursing and triage notes (agree or disagree)? Why? @ -I reviewed and agree with nursing and triage notes Were old charts reviewed (outside hosp., previous admission, EMS record, old EK G, old radiological studies, urgent care reports/EKG's, longterm records)? Report findings @ -Prior chest x-ray reviewed Differential Diagnosis (chest pain, altered mental status, abdominal pain women, abdominal pain men, vaginal bleeding, weakness, fever, dyspnea, syncope, headache, dizziness, GI bleed, back pain, seizure, CVA, palpatations, mental health, musculoskeletal)? @ -Differential Dizziness: Benign paroxysmal positional Vertigo, Menieres disease, otitis media, acoustic neuroma, vertebrobasilar insufficiency, cerebellar stroke, encephalitis, hypovolemic, arrhythmia, coronary artery syndrome, anemia, this is not meant to be an all-inclusive list EKG interpreted by me (3pts min.). @ -As above X-rays interpreted by me (1pt min.). @ -Chest x-ray does show cardiomegaly. Mild increased markings right lower lobe improved from previous. CT interpreted by me (1pt min.). @ -None done U/S interpreted by me (1pt. min.). @ -None done What testing was considered but not performed or refused? (CT, X-rays, U/S, labs)? Why? @ -None What meds were considered but not given or refused? Why? @ -Consider medications for bradycardia however patient is normotensive and stable. Did you discuss the management of the patient with other professionals (professionals i.e. , PA, LOSS PREVENTION INVESTIGATOR, lab, RT, psych nurse, social media manager, kennel assistant, teacher, unclaimed property officer, case fitter)? Give summary @ -Case was discussed with Dr. Maxwell, see above. Case also discussed with Dr. maier, who will admit covering Dr. Monique Was smoking cessation discussed for >3mins.? @ -No Was critical care preformed (if so, how long)? @ -No Were there social determinants of health that impacted care today? How? (Homelessness, low income, unemployed, alcoholism, drug addiction, transportation, low edu. Level, literacy, decrease access to med. care, correction, rehab)? @ -No Was there de-escalation of care discussed even if they declined (Discuss DNR or withdrawal of care, Hospice)? DNR status @ -No What co-morbidities impacted this encounter? (DM, HTN, Smoking, COPD, CAD, Cancer, CVA, ARF, Chemo, Hep., AIDS, mental health diagnosis, sleep apnea, morbid obesity)? @ -History of atrial fibrillation Was patient admitted / discharged? Hospital course, mention meds given and route, prescriptions, significant lab abnormalities, going to OR and other pertinent info. @ -Patient reevaluated and unchanged. Heart rate remains 35. Blood pressure stable. Patient and family updated on results and plan. Patient will be admitted. Admission orders written. Cardiac consult placed. Undiagnosed new problem with uncertain prognosis? @ -No Drug Therapy requiring intensive monitoring for toxicity (Heparin, Nitro, Ins ulin, Cardizem)? @ -No Were any procedures done? @ -No Diagnosis/symptom? @ -Bradycardia Acute, or Chronic, or Acute on Chronic? @ -Acute Uncomplicated (without systemic symptoms) or Complicated (systemic symptoms)? @ -default Side effects of treatment? @ -No Exacerbation, Progression, or Severe Exacerbation? @ -No Poses a threat to life or bodily function? How? (Chest pain, [place], [place], pneumonia, PE, COPD, DKA, ARF, appy, cholecystitis, CVA, Diverticulitis, Homicidal, Suicidal, threat to staff... and all critical care pts) @ -Threat to function of organs with hypoperfusion - Lab Data Result diagrams: 12/19/23 14:26 12/19/23 14:26 Lab Results 12/19/23 12/19/23 12/19/23 Range/Units 14:26 14:26 14:26 WBC 11.9 H (3.8-10.6) k/uL RBC 3.37 L (3.80-5.40) m/uL Hgb 10.4 L (11.4-16.0) gm/dL Hct 32.8 L (34.0-46.0) % MCV 97.3 (80.0-100.0) fL MCH 30.9 (25.0-35.0) pg MCHC 31.7 (31.0-37.0) g/dL RDW 15.4 (11.5-15.5) % Plt Count 512 H (150-450) k/uL MPV 7.2 Neutrophils % 75 % Lymphocytes % 18 % Monocytes % 4 % Eosinophils % 2 % Basophils % 1 % Neutrophils # 8.9 H (1.3-7.7) k/uL Lymphocytes # 2.2 (1.0-4.8) k/uL Monocytes # 0.5 (0-1.0) k/uL Eosinophils # 0.2 (0-0.7) k/uL Basophils # 0.1 (0-0.2) k/uL Hypochromasia Moderate Sodium 138 (137-145) mmol/L Potassium 4.5 (3.5-5.1) mmol/L Chloride 108 H (98-107) mmol/L Carbon Dioxide 16 L (22-30) mmol/L Anion Gap 14 mmol/L BUN 31 H (7-17) mg/dL Creatinine 1.80 H (0.52-1.04) mg/dL Est GFR (CKD-EPI)AfAm 34 (>60 ml/min/1.73 sqM) Est GFR (CKD-EPI)NonAf 29 (>60 ml/min/1.73 sqM) Glucose 208 H (74-99) mg/dL Calcium 9.1 (8.4-10.2) mg/dL Magnesium 1.6 (1.6-2.3) mg/dL Total Bilirubin 0.5 (0.2-1.3) mg/dL AST 40 H (14-36) U/L ALT 23 (4-34) U/L Alkaline Phosphatase 67 (38-126) U/L Troponin I <0.012 (0.000-0.034) ng/mL Total Protein 6.7 (6.3-8.2) g/dL Albumin 4.1 (3.5-5.0) g/dL Disposition Clinical Impression: Bradycardia Disposition: ADMITTED IP TO THIS HOSP Is patient prescribed a controlled substance at d/c from ED?: No Referrals: Michael Dan MD [Primary Care Provider] - 1-2 days Time of Disposition: 15:16
[2023-12-19 14:41] LABS: Basophils # (A) 0.1 k/uL (0-0.2); Basophils % (A) 1 %; Eosinophils # (A) 0.2 k/uL (0-0.7); Eosinophils % (A) 2 %; HCT 32.8 % (34.0-46.0); HGB 10.4 gm/dL (11.4-16.0); Hypochromasia Moderate; Lymphocytes # (A) 2.2 k/uL (1.0-4.8); Lymphocytes % (A) 18 %; MCH 30.9 pg (25.0-35.0); MCHC 31.7 g/dL (31.0-37.0); MCV 97.3 fL (80.0-100.0); Mean Platelet Volume 7.2; Monocytes # (A) 0.5 k/uL (0-1.0); Monocytes % (A) 4 %; Neutrophils # (A) 8.9 k/uL (1.3-7.7); Neutrophils % (A) 75 %; Platelet Count 512 k/uL (150-450); RBC 3.37 m/uL (3.80-5.40); RDW 15.4 % (11.5-15.5); WBC 11.9 k/uL (3.8-10.6)
--- NOTE | 2023-12-19 14:55 | XR ---
EXAMINATION TYPE: XR chest 2V DATE OF EXAM: 12/19/2023 COMPARISON: 09/05/2019 INDICATION: Dysrhythmia nausea TECHNIQUE: Frontal and lateral views of the chest are obtained. FINDINGS: The heart size is prominent. The pulmonary vasculature is normal. No suspicious infiltrate. No consolidations evident. IMPRESSION: 1. Cardiomegaly.
[2023-12-19 14:59] LABS: ALT 23 U/L (4-34); AST 40 U/L (14-36); African American GFR (CKD) 34 (>60 ml/min/1.73 sqM); Albumin 4.1 g/dL (3.5-5.0); Alkaline Phosphatase 67 U/L (38-126); Anion Gap 14 mmol/L; Blood Urea Nitrogen 31 mg/dL (7-17); Calcium 9.1 mg/dL (8.4-10.2); Carbon Dioxide 16 mmol/L (22-30); Chloride 108 mmol/L (98-107); Glucose 208 mg/dL (74-99); Magnesium 1.6 mg/dL (1.6-2.3); Non-African American GFR(CKD) 29 (>60 ml/min/1.73 sqM); Potassium 4.5 mmol/L (3.5-5.1); Sodium 138 mmol/L (137-145); Total Bilirubin 0.5 mg/dL (0.2-1.3); Total Protein 6.7 g/dL (6.3-8.2)
[2023-12-19 15:16] LABS: Partial Thromboplastin Time 23.2 sec (22.0-30.0); Prothrombin Time 10.8 sec (10.0-12.5)
[2023-12-19] MEDS ORDERED: NALOXONE 0.4 MG/ML 1 ML VIAL IV PRN (15:17)
[2023-12-19 15:39] LABS: T4, Free (Free Thyroxine) 1.82 ng/dL (0.78-2.19)
[2023-12-19] MEDS ORDERED: LACTULOSE 20 GM/30 ML CUP PO PRN (16:14)
[2023-12-19] MEDS ORDERED: DEXTROSE 50% SYRINGE 50 ML IVP PRN ×2 (16:19)
--- NOTE | 2023-12-19 16:28 | P.HPIM ---
History of Present Illness H&P Date: 12/19/23 63-year-old female with PMH with PMH of atrial fibrillation, diabetes mellitus, GERD presents to the ED. Reports a prolonged hospital course following a hernia repair from Sep 19-Nov 14 requiring prolonged intubation/trach, sepsis due to aspiration PNA, renal failure requiring HD and atrial fibrillation. She was discharged on Metoprolol, Amiodarone and Cardizem. She reports intermittent lightheadedness since her discharge. Visiting nurse realized she was severely bradycardic which prompted her to come to the ED. She currently denies any dizziness, chest pain, SOB or palpitations. In the ED, she underwent extensive evaluation. Bradycardic with HR in the 30s. CBC WBC 11.9, Hg 10.4, Hct 32.8, Plt 512. Coag panel within normal limits. CMP Cl 108, bicarb 16, BUN 31, Cr 1.80, glu 208, AST 40. Troponin < 0.012. TSH 11.4, FT4 1.82, FT3 3.5. Mag 1.6. EKG shows ventricular rate of 34, sinus rhythm, Q waves V1/V2, QTc 447. Patient is admitted for symptomatic bradycardia. General: non toxic, no distress, appears at stated age Derm: warm, dry Head: atraumatic, normocephalic, symmetric Eyes: EOMI, no lid lag, anicteric sclera Mouth: no lip lesion, mucus membranes moist Cardiovascular: S1S2 bradycardic, no murmur, positive posterior tibial pulse bilateral, Lungs: CTA bilateral, no rhonchi, no rales , no accessory muscle use Ext: no gross muscle atrophy, 2+ bilateral lower extremity edema, no contractures Neuro: no focal neuro deficits Psych: Alert, oriented, appropriate affect Based on my assessment of this patient, this patient meets a high complexity level of care. Patient has an acute diagnosis of symptomatic bradycardia that poses a threat to life or bodily function. Lightheadedness Symptomatic bradycardia: Hold Amiodarone, Metoprolol, Cardizem. Telemetry monitoring. Echo. 4g Mag sulfate IV ordered. Cardiology consult. Diabetes mellitus with hyperglycemia: ISS. Accuchecks ACHS. Hypoglycemic precautions. Leukocytosis: No signs of active infection. Mildly elevated. Monitor fever profile. Normocytic anemia with thrombocytosis: Cyanocobalamin 5000 mcg PO QD. Ferrous sulfate 325 mg PO Q48H. Chronic kidney disease: Avoid nephrotoxins. Transaminitis Subclinical hypothyroidism: TSH > 10. Start Synthroid 25 mcg PO QD. Repeat TSH, FT4/FT3 in 6-8 weeks. CODE STATUS: FULL CODE DVT Prophylaxis: Eliquis GI Prophylaxis: Pepcid Designated medical POA if patient is not able to make medical decisions for themselves: I have reviewed the following skin care consultant notes: I have reviewed the results of the following tests: As above. I have ordered the following tests: As above. I have discussed the care of this patient with the following independent historian: I have independently interpreted the following test below: EKG. I have discussed the management of this patient with the following physician: Past Medical History Past Medical History: Atrial Fibrillation, Cancer, Pneumonia, Renal Disease Additional Past Medical History / Comment(s): colon cancer History of Any Multi-Drug Resistant Organisms: None Reported Past Surgical History: Bowel Resection, Hernia Repair Additional Past Surgical History / Comment(s): FRONT TEETH EXTRACTIONS Past Anesthesia/Blood Transfusion Reactions: No Reported Reaction Additional Past Anesthesia/Blood Transfusion Reaction / Comment(s): DENTAL PROCEDURE ONLY Past Psychological History: No Psychological Hx Reported Smoking Status: Former smoker - Past Family History Mother Family Medical History: No Reported History Medications and Allergies Home Medications Medication Instructions Recorded Confirmed Type Cyanocobalamin (Vitamin B-12) 5,000 mcg PO DAILY 08/12/19 12/19/23 History [Vitamin B-12] Amiodarone [Cordarone] 200 mg PO DAILY 12/19/23 12/19/23 History Apixaban [Eliquis] 5 mg PO BID 12/19/23 12/19/23 History Ascorbic Acid [Vitamin C] 500 mg PO DAILY 12/19/23 12/19/23 History Famotidine [Pepcid] 20 mg PO DAILY 12/19/23 12/19/23 History Ferrous Sulfate [Feosol] 325 mg PO Q48H 12/19/23 12/19/23 History Insulin Glargine,Hum.rec.anlog 15 units SQ HS 12/19/23 12/19/23 History [Lantus Solostar Pen] Lactulose 20 gm PO DAILY PRN 12/19/23 12/19/23 History Melatonin 6 mg PO HS 12/19/23 12/19/23 History Metoprolol Tartrate [Lopressor] 100 mg PO BID 12/19/23 12/19/23 History busPIRone HCl [Buspar] 10 mg PO Q12H 12/19/23 12/19/23 History dilTIAZem HCL [Cardizem] 120 mg PO BID 12/19/23 12/19/23 History Allergies Allergy/AdvReac Type Severity Reaction Status Date / Time No Known Allergies Allergy Verified 12/19/23 15:32 Physical Exam Vitals: Vital Signs Temp Pulse Pulse Resp BP Pulse Ox 12/19/23 14:52 35 L 18 106/82 94 L 12/19/23 14:34 34 L 18 101/57 94 L 12/19/23 14:29 34 L 12/19/23 14:27 34 L 18 87/68 95 12/19/23 14:00 97.5 F L 35 L 16 102/45 96 Intake and Output 12/19/23 12/19/23 12/19/23 06:59 14:59 22:59 Other: Weight 102.965 kg Results CBC & Chem 7: 12/19/23 14:26 12/19/23 14:26 Labs: Abnormal Lab Results - Last 24 Hours (Table) 12/19/23 12/19/23 Range/Units 14:26 14:26 WBC 11.9 H (3.8-10.6) k/uL RBC 3.37 L (3.80-5.40) m/uL Hgb 10.4 L (11.4-16.0) gm/dL Hct 32.8 L (34.0-46.0) % Plt Count 512 H (150-450) k/uL Neutrophils # 8.9 H (1.3-7.7) k/uL Chloride 108 H (98-107) mmol/L Carbon Dioxide 16 L (22-30) mmol/L BUN 31 H (7-17) mg/dL Creatinine 1.80 H (0.52-1.04) mg/dL Glucose 208 H (74-99) mg/dL AST 40 H (14-36) U/L TSH 11.400 H (0.465-4.680) mIU/L
[2023-12-19] MEDS: MAGNESIUM SULFATE-D5W PMX 1 GM in DEXTROSE/WATER 1 100ML.BAG IVPB SCH ×4 (17:42→19:49)
[2023-12-19] MEDS: INSULIN ASPART (NovoLOG) 100 UNIT/ML VIAL SQ SCH ×2 (18:21→20:51)
[2023-12-19 18:30] LABS: Glucose,Whole Blood 96 mg/dL (70-110)
[2023-12-19 20:47] LABS: Glucose,Whole Blood 119 mg/dL (70-110)
[2023-12-19] MEDS: busPIRone HCl 10 MG TAB PO SCH (20:49)
[2023-12-19] MEDS: MELATONIN 3 MG TABLET PO SCH (20:49)
[2023-12-19] MEDS: APIXABAN 5 MG TAB PO SCH (20:49)
[2023-12-20] MEDS: LEVOTHYROXINE 25 MCG TAB PO SCH (06:04)
[2023-12-20 09:05] LABS: Glucose,Whole Blood 99 mg/dL (70-110)
[2023-12-20] MEDS: INSULIN ASPART (NovoLOG) 100 UNIT/ML VIAL SQ SCH ×4 (09:06→20:11)
[2023-12-20 10:15] LABS: ALT 26 U/L (4-34); AST 47 U/L (14-36); African American GFR (CKD) 32 (>60 ml/min/1.73 sqM); Albumin 4.1 g/dL (3.5-5.0); Alkaline Phosphatase 65 U/L (38-126); Anion Gap 14 mmol/L; Blood Urea Nitrogen 31 mg/dL (7-17); Calcium 9.6 mg/dL (8.4-10.2); Carbon Dioxide 18 mmol/L (22-30); Chloride 107 mmol/L (98-107); Glucose 89 mg/dL (74-99); Non-African American GFR(CKD) 28 (>60 ml/min/1.73 sqM); Sodium 139 mmol/L (137-145); Total Bilirubin 0.5 mg/dL (0.2-1.3); Total Protein 6.8 g/dL (6.3-8.2)
[2023-12-20 10:16] LABS: African American GFR (CKD) 32 (>60 ml/min/1.73 sqM); Anion Gap 13 mmol/L; Blood Urea Nitrogen 31 mg/dL (7-17); Calcium 9.5 mg/dL (8.4-10.2); Carbon Dioxide 19 mmol/L (22-30); Chloride 107 mmol/L (98-107); Glucose 89 mg/dL (74-99); Magnesium 2.1 mg/dL (1.6-2.3); Non-African American GFR(CKD) 27 (>60 ml/min/1.73 sqM); Sodium 139 mmol/L (137-145)
[2023-12-20 10:19] LABS: Basophils % (A) 0 %; Eosinophils # (A) 0.2 k/uL (0-0.7); Eosinophils % (A) 2 %; HCT 30.2 % (34.0-46.0); HGB 9.9 gm/dL (11.4-16.0); Hypochromasia Slight; Lymphocytes # (A) 1.9 k/uL (1.0-4.8); Lymphocytes % (A) 23 %; MCHC 32.7 g/dL (31.0-37.0); MCV 94.9 fL (80.0-100.0); Mean Platelet Volume 7.8; Monocytes # (A) 0.5 k/uL (0-1.0); Monocytes % (A) 5 %; Neutrophils # (A) 5.7 k/uL (1.3-7.7); Neutrophils % (A) 68 %; Platelet Count 427 k/uL (150-450); RBC 3.18 m/uL (3.80-5.40); RDW 15.2 % (11.5-15.5); WBC 8.4 k/uL (3.8-10.6)
[2023-12-20] MEDS: amLODIPine 10 MG TAB PO SCH (10:33)
[2023-12-20] MEDS: APIXABAN 5 MG TAB PO SCH ×2 (10:34→20:33)
[2023-12-20] MEDS: busPIRone HCl 10 MG TAB PO SCH ×2 (10:34→20:33)
[2023-12-20] MEDS: FAMOTIDINE 20 MG TAB PO SCH (10:34)
[2023-12-20] MEDS: CYANOCOBALAMIN 500 MCG TAB PO SCH (10:34)
[2023-12-20] MEDS: lisinopriL 20 MG TAB PO SCH (10:34)
--- NOTE | 2023-12-20 12:13 | CA ---
Transthoracic Echo Report Name: Aida Carvajal Age: 63 Gender: F : 1960 Exam Date: 12/20/2023 08:06 Exam Location: [facility] Ht (in): 63 Wt (lb): 227 Ordering Physician: Nahomi Elizabeth MD Attending/Referring Phys: Shooter'S Helper Sofia Arreguin [facility] Procedure CPT: Indications: Bradycardia Cardiac Hx: Technical Quality: Fair Contrast 1: Total Dose (mL): Contrast 2: Total Dose (mL): MEASUREMENTS (Male / Female) Normal Values 2D ECHO LV Diastolic Diameter PLAX 4.8 cm 4.2 - 5.9 / 3.9 - 5.3 cm LV Systolic Diameter PLAX 2.5 cm IVS Diastolic Thickness 0.9 cm 0.6 - 1.0 / 0.6 - 0.9 cm LVPW Diastolic Thickness 1.0 cm 0.6 - 1.0 / 0.6 - 0.9 cm LV Relative Wall Thickness 0.4 LVOT Diameter 2.1 cm LA Systolic Diameter LX 2.1 cm 3.0 - 4.0 / 2.7 - 3.8 cm Ascending Aorta Diameter 3.3 cm M-MODE Aortic Root Diameter MM 2.9 cm LA Systolic Diameter MM 4.3 cm LA Ao Ratio MM 1.5 AV Cusp Separation MM 1.4 cm DOPPLER AV Peak Velocity 234.7 cm/s AV Peak Gradient 22.0 mmHg AV Mean Velocity 172.8 cm/s AV Mean Gradient 13.2 mmHg AV Velocity Time Integral 60.6 cm LVOT Peak Velocity 137.5 cm/s LVOT Peak Gradient 7.6 mmHg LVOT Velocity Time Integral 37.1 cm LVOT Stroke Volume 134.0 cm??? LVOT Stroke Volume Index 65.7 ml/m??? LVOT Cardiac Index 4094.4 cm???/min???m??? AV Area Cont Eq vti 2.2 cm??? AV Area Cont Eq pk 2.1 cm??? MV Peak Velocity 185.9 cm/s MV Peak Gradient 13.8 mmHg MV Mean Velocity 105.8 cm/s MV Mean Gradient 5.1 mmHg MV Velocity Time Integral 43.9 cm MV Area PHT 2.7 cm??? MR Peak Velocity 610.0 cm/s MR Peak Gradient 148.8 mmHg Mitral E Point Velocity 133.3 cm/s Mitral A Point Velocity 96.3 cm/s Mitral E to A Ratio 1.4 MV Deceleration Time 144.2 ms LV E' Lateral Velocity 7.5 cm/s Mitral E to LV E' Lateral Ratio 17.8 LV E' Septal Velocity 6.7 cm/s Mitral E to LV E' Septal Ratio 19.8 TR Peak Velocity 218.1 cm/s TR Peak Gradient 19.0 mmHg Right Atrial Pressure 8.0 mmHg Pulmonary Artery Systolic Pressu 27.0 mmHg Right Ventricular Systolic Press 27.0 mmHg FINDINGS Left Ventricle Mildly increased posterior wall thickness. Left ventricular cavity size normal. Normal left ventricular systolic function with no obvious regional wall motion abnormalities. Left ventricular ejection fraction is estimated at 60-65%. Right Ventricle Mild right ventricular dilatation. Right Atrium Moderate right atrial dilatation. Left Atrium Severe left atrial dilatation. Mitral Valve Mitral valve thickened. Moderate mitral regurgitation. Aortic Valve Trileaflet aortic valve. Mildly thickened and mildly calcified aortic valve cusps. No aortic regurgitation. Aortic valve sclerosis. Tricuspid Valve Structurally normal tricuspid valve. Mild tricuspid regurgitation. Pulmonic Valve Pulmonic valve not well visualized. Pericardium No pericardial effusion. Echo free space anterior to the right ventricle likely represents a fat pad. Aorta Normal size aortic root and proximal ascending aorta. CONCLUSIONS Left ventricular ejection fraction is estimated at 60-65%. Normal left ventricular systolic function with no obvious regional wall motion abnormalities. Mild right ventricular dilatation. Severe left atrial dilatation. Moderate right atrial dilatation Moderate mitral regurgitation. Aortic valve sclerosis. Echo free space anterior to the right ventricle likely represents a fat pad. Previewed by: Dr Junaid Veronica (Electronically Signed) Final Date: 20 December 2023 12:12
--- NOTE | 2023-12-20 12:48 | P.CRDCN ---
History of Present Illness Consult date: 12/20/23 Reason for Consult (text): Bradycardia History of present illness: History of present illness: This is a 63-year-old female patient of Dr. Arriaga with past medical history of hypertension, mild aortic stenosis, paroxysmal atrial fibrillation on Eliquis, diabetes mellitus type 2, remote history of tobacco use. We have been asked to evaluate the patient for bradycardia. Patient seen in the emergency center waiting for a bed on the cardiac stepdown unit. Patient gives history of hernia repair surgery 09/19/2023 in [place] and had a very complicated postop course which included acute respiratory failure requiring intubation and mechanical v entilation, possible aspiration pneumonia, acute kidney injury that required hemodialysis, new onset of A-fib with RVR. She was discharged from the hospital on November 14. She has a follow-up appointment with Dr. Sampson Arriaga on December 26. Patient has been maintained outpatient on Eliquis 5 mg twice daily along with Lopressor 100 mg twice daily and amiodarone 200 mg daily. Patient states that she feels fine until she takes her morning medications and after that she starts having dizziness and nausea and she has had some heart rates in the 40s. Yesterday her heart rate was 31 when her home care nurse arrived. Because of the low heart rate, patient was advised to come into the hospital. EKGs and telemetry reviewed. Patient has evidence of slow atrial fibrillation along with intermittent junctional rhythm. Chest x-ray: Cardiomegaly WBC 11.9, hemoglobin 10.4, platelet count 512. Sodium 138, potassium 4.5, chloride 108, CO2 16, BUN 31 creatinine 1.8. Blood sugar 208. Troponins negat kendra x 3. TSH 11.4 with normal free T4 of 1.82 and free T33.5. AST 40 otherwise liver function test are normal. Home cardiac medications: Amiodarone 200 mg daily, Eliquis 5 mg twice daily, Cardizem 120 mg twice daily, Lopressor 100 mg twice daily. Lexiscan stress test performed 06/21/2023 in the office was normal myocardial perfusion and function, negative stress test by EKG criteria. Echocardiogram performed in the office on 06/17/2023 revealed normal LV function with a EF of 55 to 60%. Grade 1 diastolic dysfunction. Mild concentric left ventricular hypertrophy. Poorly seen aortic valve. Cannot rule out bicuspid aortic valve versus fused valves. There is aortic valve sclerosis. Mild aortic stenosis. Trace mitral regurgitation. Review Of Systems: At the time of my evaluation: Constitutional: No fever, no chills. No weakness, fatigue or lethargy. EENT: No headache. No dizziness. Lungs: No shortness of breath, cough, no sputum production. No wheezing. Cardiovascular: No chest pain, no lower extremity edema. No palpitations. No paroxysmal nocturnal dyspnea. No orthopnea. + lightheadedness or dizziness. No syncopal episodes. Abdominal: No abdominal pain. No nausea, vomiting. No diarrhea. No constipation. No bloody or tarry stools. No change in appetite Genitourinary: No dysuria. No urinary retention. Musculoskeletal: No myalgias. No muscle weakness, no frequent falls. Integumentary: No wounds. No rash. No unusual bruising. Neurologic: No aphasia. No facial droop. No change in mentation. Physical examination: Gen: This is a morbidly obese 63-year-old female. She appears to be in no acute distress. VS: reviewed HEENT: Head is atraumatic, normocephalic. Pupils equal, round. Sclerae is anicteric. NECK: Supple. No JVD. LUNGS: Clear to auscultation. No wheezes or rhonchi. No intercostal retractions. HEART: Regular rate and rhythm. No murmur. ABDOMEN: Soft No tenderness. EXTREMITIES: No pedal edema. No calf tenderness. NEUROLOGICAL: Patient is awake, alert and oriented x3. Assessment: Slow atrial fibrillation with junctional rhythm Acute kidney injury Paroxysmal atrial fibrillation Mild aortic stenosis Hypothyroidism, new diagnosis, patient has been started on levothyroxine Plan: Avoid all AV clifton blockers, amiodarone and Cardizem on hold Continue telemetry monitoring No need to repeat echocardiogram Discussed option of atrial fibrillation ablation may be beneficial and would be evaluated as an outpatient. Further recommendations to follow based upon clinical course Thank you kindly for this consultation. Nurse practitioner note has been reviewed, I agree with documented findings and plan of care. Patient was seen and examined. Past Medical History Past Medical History: Atrial Fibrillation, Cancer, Pneumonia, Renal Disease Additional Past Medical History / Comment(s): colon cancer History of Any Multi-Drug Resistant Organisms: None Reported Past Surgical History: Bowel Resection, Hernia Repair Additional Past Surgical History / Comment(s): FRONT TEETH EXTRACTIONS Past Anesthesia/Blood Transfusion Reactions: No Reported Reaction Additional Past Anesthesia/Blood Transfusion Reaction / Comment(s): DENTAL PROCEDURE ONLY Past Psychological History: No Psychological Hx Reported Smoking Status: Former smoker - Past Family History Mother Family Medical History: No Reported History Medications and Allergies Home Medications Medication Instructions Recorded Confirmed Type Cyanocobalamin (Vitamin B-12) 5,000 mcg PO DAILY 08/12/19 12/19/23 History [Vitamin B-12] Amiodarone [Cordarone] 200 mg PO DAILY 12/19/23 12/19/23 History Apixaban [Eliquis] 5 mg PO BID 12/19/23 12/19/23 History Ascorbic Acid [Vitamin C] 500 mg PO DAILY 12/19/23 12/19/23 History Famotidine [Pepcid] 20 mg PO DAILY 12/19/23 12/19/23 History Ferrous Sulfate [Feosol] 325 mg PO Q48H 12/19/23 12/19/23 History Insulin Glargine,Hum.rec.anlog 15 units SQ HS 12/19/23 12/19/23 History [Lantus Solostar Pen] Lactulose 20 gm PO DAILY PRN 12/19/23 12/19/23 History Melatonin 6 mg PO HS 12/19/23 12/19/23 History Metoprolol Tartrate [Lopressor] 100 mg PO BID 12/19/23 12/19/23 History busPIRone HCl [Buspar] 10 mg PO Q12H 12/19/23 12/19/23 History dilTIAZem HCL [Cardizem] 120 mg PO BID 12/19/23 12/19/23 History Allergies Allergy/AdvReac Type Severity Reaction Status Date / Time No Known Allergies Allergy Verified 12/19/23 15:32 Physical Exam Vitals: Vital Signs Temp Pulse Pulse Resp BP Pulse Ox 12/20/23 06:05 65 20 196/85 94 L 12/20/23 04:54 60 18 175/82 93 L 12/20/23 02:00 57 L 19 182/76 93 L 12/20/23 01:00 63 22 180/78 93 L 12/20/23 00:27 60 18 182/81 97 12/19/23 23:00 63 20 177/77 93 L 12/19/23 22:00 64 21 163/74 94 L 01/30/24 20:54 65 20 189/86 94 L 12/19/23 19:00 64 20 190/90 95 12/19/23 18:20 98.1 F 65 18 184/85 95 12/19/23 16:52 60 18 153/71 96 12/19/23 14:52 35 L 18 106/82 94 L 12/19/23 14:34 34 L 18 101/57 94 L 12/19/23 14:29 34 L 12/19/23 14:27 34 L 18 87/68 95 12/19/23 14:00 97.5 F L 35 L 16 102/45 96 Results 12/20/23 09:05 12/20/23 09:05 Cardiac Enzymes 12/19/23 12/19/23 12/19/23 Range/Units 14:26 14:26 17:29 AST 40 H (14-36) U/L Troponin I <0.012 <0.012 (0.000-0.034) ng/mL 12/19/23 Range/Units 20:22 AST (14-36) U/L Troponin I <0.012 (0.000-0.034) ng/mL Coagulation 12/19/23 Range/Units 14:26 PT 10.8 (10.0-12.5) sec APTT 23.2 (22.0-30.0) sec CBC 12/19/23 Range/Units 14:26 WBC 11.9 H (3.8-10.6) k/uL RBC 3.37 L (3.80-5.40) m/uL Hgb 10.4 L (11.4-16.0) gm/dL Hct 32.8 L (34.0-46.0) % Plt Count 512 H (150-450) k/uL Comprehensive Metabolic Panel 12/19/23 Range/Units 14:26 Sodium 138 (137-145) mmol/L Potassium 4.5 (3.5-5.1) mmol/L Chloride 108 H (98-107) mmol/L Carbon Dioxide 16 L (22-30) mmol/L BUN 31 H (7-17) mg/dL Creatinine 1.80 H (0.52-1.04) mg/dL Glucose 208 H (74-99) mg/dL Calcium 9.1 (8.4-10.2) mg/dL AST 40 H (14-36) U/L ALT 23 (4-34) U/L Alkaline Phosphatase 67 (38-126) U/L Total Protein 6.7 (6.3-8.2) g/dL Albumin 4.1 (3.5-5.0) g/dL Current Medications Generic Name Dose Route Start Last Admin Trade Name Freq PRN Reason Stop Dose Admin Apixaban 5 mg 12/19/23 21:00 12/19/23 20:49 Apixaban 5 Mg Tab PO 5 mg BID CRISTIN Administration Protocol Buspirone HCl 10 mg 12/19/23 21:00 12/19/23 20:49 Buspirone Hcl 10 Mg Tab PO 10 mg Q12HR CRISTIN Administration Cyanocobalamin 1,000 mcg 12/20/23 09:00 Cyanocobalamin 500 Mcg Tab PO DAILY CRISTIN Dextrose/Water 25 ml 12/19/23 16:19 Dextrose 50% Syringe 50 Ml IVP PER PROTOCOL PRN Hypoglycemia Protocol Dextrose/Water 50 ml 12/19/23 16:19 Dextrose 50% Syringe 50 Ml IVP PER PROTOCOL PRN Hypoglycemia Protocol Famotidine 20 mg 12/20/23 09:00 Famotidine 20 Mg Tab PO DAILY CRISTIN Ferrous Sulfate 325 mg 12/21/23 09:00 Ferrous Sulfate 325 Mg Tab PO Q48H CRISTIN Insulin Aspart 0 unit 12/19/23 17:30 12/19/23 20:51 Insulin Aspart (Novolog) 100 Unit/Ml Vial SQ Not Given ACHS CRISTIN Protocol Lactulose 20 gm 12/19/23 16:14 Lactulose 20 Gm/30 Ml Cup PO DAILY PRN Constipation Levothyroxine Sodium 25 mcg 12/20/23 06:30 12/20/23 06:04 Levothyroxine 25 Mcg Tab PO 25 mcg DAILY@0630 CRISTIN Administration Melatonin 6 mg 12/19/23 21:00 12/19/23 20:49 Melatonin 3 Mg Tablet PO 6 mg HS CRISTIN Administration Naloxone HCl 0.2 mg 12/19/23 15:17 Naloxone 0.4 Mg/Ml 1 Ml Vial IV Q2M PRN Opioid Reversal 12/19/23 14:26 12/19/23 14:26
[2023-12-20 12:59] LABS: Glucose,Whole Blood 157 mg/dL (70-110)
--- NOTE | 2023-12-20 14:05 | P.PN ---
Subjective Progress Note Date: 12/20/23 63-year-old female with PMH with PMH of atrial fibrillation, diabetes mellitus, GERD presents to the ED. Reports a prolonged hospital course following a hernia repair from Sep 19-Nov 14 requiring prolonged intubation/trach, sepsis due to aspiration PNA, renal failure requiring HD and atrial fibrillation. She was discharged on Metoprolol, Amiodarone and Cardizem. She reports intermittent lightheadedness since her discharge. Visiting nurse realized she was severely bradycardic which prompted her to come to the ED. She currently denies any dizziness, chest pain, SOB or palpitations. In the ED, she underwent extensive evaluation. Bradycardic with HR in the 30s. CBC WBC 11.9, Hg 10.4, Hct 32.8, Plt 512. Coag panel within normal limits. CMP Cl 108, bicarb 16, BUN 31, Cr 1.80, glu 208, AST 40. Troponin < 0.012. TSH 11.4, FT4 1.82, FT3 3.5. Mag 1.6. EKG shows ventricular rate of 34, sinus rhythm, Q waves V1/V2, QTc 447. Patient is admitted for symptomatic bradycardia. 12/20 Patient was seen and examined. HR in the 60s. Cardiology recommends no AV clifton blockers, continue to monitor for one more day. Echo shows EF 60-65% with biatrial enlargement and MR. Patient denies dizziness. No other complaints. CBC Hg 9.9 Hct 30.2. BMP bicarb 19, BUN 31, Cr 1.89, AST 47. General: non toxic, no distress, appears at stated age Derm: warm, dry Head: atraumatic, normocephalic, symmetric Eyes: EOMI, no lid lag, anicteric sclera Mouth: no lip lesion, mucus membranes moist Cardiovascular: S1S2 bradycardic, no murmur Lungs: CTA bilateral, no rhonchi, no rales , no accessory muscle use Ext: no gross muscle atrophy, 2+ bilateral lower extremity edema, no contractures Neuro: no focal neuro deficits Psych: Alert, oriented, appropriate affect Based on my assessment of this patient, this patient meets a high complexity level of care. Patient has an acute diagnosis of symptomatic bradycardia that poses a threat to life or bodily function. Lightheadedness Symptomatic bradycardia: Hold Amiodarone, Metoprolol, Cardizem. Telemetry monitoring. Echo as above. Cardiology consult. Hypertension: Started on Amlodipine 10 mg PO QD and Lisinopril 20 mg PO QD. Monitor vitals, adjust medications if necessary. Diabetes mellitus with hyperglycemia: ISS. Accuchecks ACHS. Hypoglycemic precautions. Leukocytosis: No signs of active infection. Mildly elevated. Monitor fever profile. Normocytic anemia with thrombocytosis: Cyanocobalamin 5000 mcg PO QD. Ferrous sulfate 325 mg PO Q48H. Chronic kidney disease: Avoid nephrotoxins. Transaminitis Subclinical hypothyroidism: TSH > 10. Start Synthroid 25 mcg PO QD. Repeat TSH, FT4/FT3 in 6-8 weeks. CODE STATUS: FULL CODE DVT Prophylaxis: Eliquis GI Prophylaxis: Pepcid Designated medical POA if patient is not able to make medical decisions for themselves: I have reviewed the following reimbursement consultant notes: I have reviewed the results of the following tests: CBC, BMP, Echo. I have ordered the following tests: I have discussed the care of this patient with the following independent historian: I have independently interpreted the following test below: I have discussed the management of this patient with the following physician: Objective - Vital Signs Vital signs: Vital Signs Temp 98.0 F 12/20/23 09:00 Pulse 66 12/20/23 12:10 Resp 22 12/20/23 12:10 BP 168/76 12/20/23 12:10 Pulse Ox 94 L 12/20/23 12:10 FiO2 Intake & Output 12/19/23 12/20/23 12/20/23 18:59 06:59 18:59 Weight 102.965 kg - Labs CBC & Chem 7: 12/20/23 09:05 12/20/23 09:05 Labs: Abnormal Lab Results - Last 24 Hours (Table) 12/19/23 12/19/23 12/19/23 Range/Units 14:26 14:26 20:45 WBC 11.9 H (3.8-10.6) k/uL RBC 3.37 L (3.80-5.40) m/uL Hgb 10.4 L (11.4-16.0) gm/dL Hct 32.8 L (34.0-46.0) % Plt Count 512 H (150-450) k/uL Neutrophils # 8.9 H (1.3-7.7) k/uL Chloride 108 H (98-107) mmol/L Carbon Dioxide 16 L (22-30) mmol/L BUN 31 H (7-17) mg/dL Creatinine 1.80 H (0.52-1.04) mg/dL Glucose 208 H (74-99) mg/dL POC Glucose (mg/dL) 119 H (70-110) mg/dL AST 40 H (14-36) U/L TSH 11.400 H (0.465-4.680) mIU/L 12/20/23 12/20/23 12/20/23 Range/Units 09:05 09:05 09:05 WBC (3.8-10.6) k/uL RBC 3.18 L (3.80-5.40) m/uL Hgb 9.9 L (11.4-16.0) gm/dL Hct 30.2 L (34.0-46.0) % Plt Count (150-450) k/uL Neutrophils # (1.3-7.7) k/uL Chloride (98-107) mmol/L Carbon Dioxide 18 L 19 L (22-30) mmol/L BUN 31 H 31 H (7-17) mg/dL Creatinine 1.88 H 1.89 H (0.52-1.04) mg/dL Glucose (74-99) mg/dL POC Glucose (mg/dL) (70-110) mg/dL AST 47 H (14-36) U/L TSH (0.465-4.680) mIU/L 12/20/23 Range/Units 12:56 WBC (3.8-10.6) k/uL RBC (3.80-5.40) m/uL Hgb (11.4-16.0) gm/dL Hct (34.0-46.0) % Plt Count (150-450) k/uL Neutrophils # (1.3-7.7) k/uL Chloride (98-107) mmol/L Carbon Dioxide (22-30) mmol/L BUN (7-17) mg/dL Creatinine (0.52-1.04) mg/dL Glucose (74-99) mg/dL POC Glucose (mg/dL) 157 H (70-110) mg/dL AST (14-36) U/L TSH (0.465-4.680) mIU/L
[2023-12-20 16:04] LABS: Glucose,Whole Blood 94 mg/dL (70-110)
[2023-12-20 20:07] LABS: Glucose,Whole Blood 132 mg/dL (70-110)
[2023-12-20] MEDS: MELATONIN 3 MG TABLET PO SCH (20:33)
[2023-12-20] MEDS: hydrALAZINE HCL 25 MG TAB PO PRN (20:33)
[2023-12-21] MEDS: hydrALAZINE HCL 25 MG TAB PO PRN ×3 (04:17→20:35)
[2023-12-21 05:56] LABS: Glucose,Whole Blood 106 mg/dL (70-110)
[2023-12-21] MEDS: INSULIN ASPART (NovoLOG) 100 UNIT/ML VIAL SQ SCH ×4 (06:34→20:32)
[2023-12-21] MEDS: FAMOTIDINE 20 MG TAB PO SCH (09:40)
[2023-12-21] MEDS: busPIRone HCl 10 MG TAB PO SCH ×2 (09:40→20:36)
[2023-12-21] MEDS: FERROUS SULFATE 325 MG TAB PO SCH (09:41)
[2023-12-21] MEDS: lisinopriL 20 MG TAB PO SCH (09:41)
[2023-12-21] MEDS: APIXABAN 5 MG TAB PO SCH ×2 (09:41→20:35)
[2023-12-21] MEDS: CYANOCOBALAMIN 500 MCG TAB PO SCH (09:41)
[2023-12-21] MEDS: amLODIPine 10 MG TAB PO SCH (09:41)
--- NOTE | 2023-12-21 11:08 | P.PN ---
Subjective Progress Note Date: 12/21/23 63-year-old female with PMH with PMH of atrial fibrillation, diabetes mellitus, GERD presents to the ED. Reports a prolonged hospital course following a hernia repair from Sep 19-Nov 14 requiring prolonged intubation/trach, sepsis due to aspiration PNA, renal failure requiring HD and atrial fibrillation. She was discharged on Metoprolol, Amiodarone and Cardizem. She reports intermittent lightheadedness since her discharge. Visiting nurse realized she was severely bradycardic which prompted her to come to the ED. She currently denies any dizziness, chest pain, SOB or palpitations. In the ED, she underwent extensive evaluation. Bradycardic with HR in the 30s. CBC WBC 11.9, Hg 10.4, Hct 32.8, Plt 512. Coag panel within normal limits. CMP Cl 108, bicarb 16, BUN 31, Cr 1.80, glu 208, AST 40. Troponin < 0.012. TSH 11.4, FT4 1.82, FT3 3.5. Mag 1.6. EKG shows ventricular rate of 34, sinus rhythm, Q waves V1/V2, QTc 447. Patient is admitted for symptomatic bradycardia. 12/20 Patient was seen and examined. HR in the 60s. Cardiology recommends no AV clifton blockers, continue to monitor for one more day. Echo shows EF 60-65% with biatrial enlargement and MR. Patient denies dizziness. No other complaints. CBC Hg 9.9 Hct 30.2. BMP bicarb 19, BUN 31, Cr 1.89, AST 47. / Patient was seen and examined. HR in the 70s. Her SBP has been as high as 202. She was started on Amlodipine 10 mg PO QD and Lisinopril 20 mg PO QD. Hydralazine 25 mg PO QID PRN was added for SBP > 180 and she has received 3 doses so far. Waiting on Cardiology input. General: non toxic, no distress, appears at stated age Derm: warm, dry Head: atraumatic, normocephalic, symmetric Eyes: EOMI, no lid lag, anicteric sclera Cardiovascular: S1S2, no murmur Lungs: CTA bilateral, no rhonchi, no rales , no accessory muscle use Ext: no gross muscle atrophy, 2+ bilateral lower extremity edema, no contractures Neuro: no focal neuro deficits Psych: Alert, oriented, appropriate affect Based on my assessment of this patient, this patient meets a high complexity level of care. Patient has an acute diagnosis of symptomatic bradycardia that poses a threat to life or bodily function. Lightheadedness Symptomatic bradycardia: Hold Amiodarone, Metoprolol, Cardizem. Telemetry monitoring. Echo as above. Cardiology consult. Hypertension: Started on Amlodipine 10 mg PO QD and Lisinopril 20 mg PO QD. Hydralazine 25 mg PO QID PRN for SBP > 180. Monitor vitals, adjust medications if necessary. Diabetes mellitus with hyperglycemia: ISS. Accuchecks ACHS. Hypoglycemic precautions. Normocytic anemia with thrombocytosis: Cyanocobalamin 5000 mcg PO QD. Ferrous sulfate 325 mg PO Q48H. Chronic kidney disease: Avoid nephrotoxins. Transaminitis Subclinical hypothyroidism: TSH > 10. Start Synthroid 25 mcg PO QD. Repeat TSH, FT4/FT3 in 6-8 weeks. Resolved: Leukocytosis CODE STATUS: FULL CODE DVT Prophylaxis: Eliquis GI Prophylaxis: Pepcid Designated medical POA if patient is not able to make medical decisions for themselves: I have reviewed the following public relations consultant notes: Cardiology note. I have reviewed the results of the following tests: I have ordered the following tests: I have discussed the care of this patient with the following independent historian: and RN at bedside. I have independently interpreted the following test below: I have discussed the management of this patient with the following physician: Objective - Vital Signs Vital signs: Vital Signs Temp 97.8 F 12/21/23 08:00 Pulse 74 12/21/23 08:00 Resp 16 12/21/23 08:00 BP 176/73 12/21/23 08:00 Pulse Ox 95 12/21/23 08:00 FiO2 Intake & Output 12/20/23 12/21/23 12/21/23 18:59 06:59 18:59 Intake Total 118 240 Balance 118 240 Weight 102.965 kg Intake: Oral 118 240 Other: Voiding Method Toilet Toilet Toilet # Voids 1 1 - Labs CBC & Chem 7: 12/20/23 09:05 12/20/23 09:05 Labs: Abnormal Lab Results - Last 24 Hours (Table) 12/20/23 12/20/23 Range/Units 12:56 20:06 POC Glucose (mg/dL) 157 H 132 H (70-110) mg/dL
[2023-12-21 11:28] LABS: Glucose,Whole Blood 101 mg/dL (70-110)
--- NOTE | 2023-12-21 14:01 | CDI ---
Documentation Clarification Form Date: 12/21/2023 01:15:01 PM From: Char Centeno RN, CCDS Phone: [phone] Admit Date: 12/19/2023 03:21:00 PM Patient Name: Aida Carvajal Visit Number: [id number] Discharge Date: ATTENTION: The Clinical Documentation Specialists (CDI) and [facility] Coding Staff appreciate your assistance in clarifying documentation. Please respond to the clarification below the line at the bottom and electronically sign. The CDI & [facility] Coding staff will review the response and follow-up if needed. Please note: Queries are made part of the Legal Health Record. If you have any questions, please contact the author of this message via ITS. Dr. Nahomi Elizabeth Unspecified CKD is documented in the H/P and subsequent progress notes. Additional clarification regarding the stage of CKD is requested. History/Risk Factors: Atrial Fibrillation, Cancer, Pneumonia, Renal Disease, colon cancer, Former smoker Patients Historical 04/10/23 BUN 34.5 CR 1.2, GFR 47.4 11/16/23 BUN 17, CR 1.2 GFR 50 Clinical Indicators: 63-year-old female reports a prolonged hospital course following a hernia repair from Sep 19-Nov 14 requiring prolonged intubation/trach, sepsis due to aspiration PNA, renal failure requiring HD and atrial fibrillation. present with acute diagnosis of symptomatic bradycardia. 12/19 VS 102/45 35 16 97.5 96% Ra 12/19 Labs: WBC 11.9, HGB 10.4 CL 108, CO2 16 12/19 BUN 31, CR 1.80, GFR 29 12/20 BUN 31, CR 1.89 GFR 27 Treatment Cardiac/telemetry monitoring Avoid nephrotoxins Please clarify the stage of the CKD, if known: [ ] CKD Stage 1 [ ] CKD Stage 2 [ ] CKD Stage 3 [ ] CKD Stage 3a [ ] CKD Stage 3b [ x ] CKD Stage 4 [ ] Other, please specify [ ] Unable to determine Reference: [employer] Stage 1 eGFR = 90 and kidney damage for =3 months Stage 2 eGFR 60-89 and kidney damage for =3 months Stage 3a eGFR 45-59 and kidney damage for =3 months Stage 3b eGFR 30-44 and kidney damage for =3 months Stage 4 eGFR 15-29 r and kidney damage for =3 months Stage 5 eGFR <15 and kidney damage for =3 months (Template Last revised: November 2023) MTDD
[2023-12-21 16:39] LABS: Glucose,Whole Blood 106 mg/dL (70-110)
[2023-12-21] MEDS ORDERED: lisinopriL 20 MG TAB PO STA (16:55)
[2023-12-21] MEDS ORDERED: hydroCHLOROthiazide 25 MG TAB PO SCH (17:00)
--- NOTE | 2023-12-21 19:35 | P.PN ---
Subjective Progress Note Date: 12/21/23 History of present illness: This is a 63-year-old female patient of Dr. Arriaga with past medical history of hypertension, mild aortic stenosis, paroxysmal atrial fibrillation on Eliquis, diabetes mellitus type 2, remote history of tobacco use. We have been asked to evaluate the patient for bradycardia. Patient seen in the emergency center waiting for a bed on the cardiac stepdown unit. Patient gives history of hernia repair surgery 09/19/2023 in [place] and had a very complicated postop course which included acute respiratory failure requiring intubation and mechanical ventilation, possible aspiration pneumonia, acute kidney injury that required hemodialysis, new onset of A-fib with RVR. She was discharged from the hospital on November 14. She has a follow-up appointment with Dr. Sampson Arriaga on December 26. Patient has been maintained outpatient on Eliquis 5 mg twice daily along with Lopressor 100 mg twice daily and amiodarone 200 mg daily. Patient states that she feels fine until she takes her morning medications and after that she starts having dizziness and nausea and she has had some heart rates in the 40s. Yesterday her heart rate was 31 when her home care nurse arrived. Because of the low heart rate, patient was advised to come into the hospital. EKGs and telemetry reviewed. Patient has evidence of slow atrial fibrillation along with intermittent junctional rhythm. Chest x-ray: Cardiomegaly WBC 11.9, hemoglobin 10.4, platelet count 512. Sodium 138, potassium 4.5, chloride 108, CO2 16, BUN 31 creatinine 1.8. Blood sugar 208. Troponins negative x 3. TSH 11.4 with normal free T4 of 1.82 and free T33.5. AST 40 otherwise liver function test are normal. Home cardiac medications: Amiodarone 200 mg daily, Eliquis 5 mg twice daily, Cardizem 120 mg twice daily, Lopressor 100 mg twice daily. Lexiscan stress test performed 06/21/2023 in the office was normal myocardial perfusion and function, negative stress test by EKG criteria. Echocardiogram performed in the office on 06/17/2023 revealed normal LV function with a EF of 55 to 60%. Grade 1 diastolic dysfunction. Mild concentric left ventricular hypertrophy. Poorly seen aortic valve. Cannot rule out bicuspid aortic valve versus fused valves. There is aortic valve sclerosis. Mild aortic stenosis. Trace mitral regurgitation. 12/21/2023 Her heart rates have been better. Blood pressure has not been well controlled. She is feeling ok, denies any lightheadedness, chest pain, or headaches. ECHO 12/20/23 with EF 60-65%, moderate mitral regurgitation, severe LA dilation. Physical examination: Gen: This is a morbidly obese 63-year-old female. She appears to be in no acute distress. VS: reviewed HEENT: Head is atraumatic, normocephalic. Pupils equal, round. Sclerae is anicteric. NECK: Supple. No JVD. LUNGS: Clear to auscultation. No wheezes or rhonchi. No intercostal retractions. HEART: Regular rate and rhythm. No murmur. ABDOMEN: Soft No tenderness. EXTREMITIES: No pedal edema. No calf tenderness. NEUROLOGICAL: Patient is awake, alert and oriented x3. Assessment: Slow atrial fibrillation with junctional rhythm Acute kidney injury Paroxysmal atrial fibrillation Mild aortic stenosis Hypothyroidism, new diagnosis, patient has been started on levothyroxine Bradycardia Plan: Avoid all AV clifton blockers, amiodarone and Cardizem on hold Continue telemetry monitoring Blood pressure is elevated, add HTCZ 25mg po daily and increase lisinopril to 40mg po daily. Discussed option of atrial fibrillation ablation may be beneficial and would be evaluated as an outpatient. Further recommendations to follow based upon clinical course. Possible discharge home tomorrow if remains stable. Nurse practitioner note has been reviewed, I agree with documented findings and plan of care. Patient was seen and examined. Objective - Vital Signs Vital signs: Vital Signs Temp 98 F 12/21/23 15:20 Pulse 78 12/21/23 15:20 Resp 16 12/21/23 15:20 BP 172/75 12/21/23 15:20 Pulse Ox 95 12/21/23 17:22 FiO2 Intake & Output 12/21/23 12/21/23 12/22/23 06:59 18:59 06:59 Intake Total 780 Balance 780 Intake: Oral 780 Other: Voiding Method Toilet Toilet # Voids 1 3 - Labs CBC & Chem 7: 12/20/23 09:05 12/20/23 09:05 Labs: Abnormal Lab Results - Last 24 Hours (Table) 12/20/23 Range/Units 20:06 POC Glucose (mg/dL) 132 H (70-110) mg/dL
[2023-12-21] MEDS: MELATONIN 3 MG TABLET PO SCH (20:35)
[2023-12-21 20:41] LABS: Glucose,Whole Blood 117 mg/dL (70-110)
[2023-12-21] MEDS ORDERED: cloNIDine 0.1 MG/24HR PATCH TRANSDERM SCH (23:00)
[2023-12-22] MEDS: LEVOTHYROXINE 25 MCG TAB PO SCH (05:47)
[2023-12-22 06:09] LABS: Glucose,Whole Blood 98 mg/dL (70-110)
[2023-12-22] MEDS: INSULIN ASPART (NovoLOG) 100 UNIT/ML VIAL SQ SCH ×4 (06:11→19:53)
[2023-12-22] MEDS: FAMOTIDINE 20 MG TAB PO SCH (10:03)
[2023-12-22] MEDS: busPIRone HCl 10 MG TAB PO SCH ×2 (10:04→19:47)
[2023-12-22] MEDS: lisinopriL 20 MG TAB PO SCH (10:04)
[2023-12-22] MEDS: CHLORTHALIDONE 25 MG TAB PO SCH (10:04)
[2023-12-22] MEDS: CYANOCOBALAMIN 500 MCG TAB PO SCH (10:04)
[2023-12-22] MEDS: APIXABAN 5 MG TAB PO SCH ×2 (10:04→19:47)
[2023-12-22] MEDS: amLODIPine 10 MG TAB PO SCH (10:04)
[2023-12-22] MEDS ORDERED: AMIODARONE 100 MG TAB PO SCH (10:45)
[2023-12-22 11:29] LABS: Glucose,Whole Blood 111 mg/dL (70-110)
--- NOTE | 2023-12-22 13:43 | P.PN ---
Subjective Progress Note Date: 12/22/23 63-year-old female with PMH with PMH of atrial fibrillation, diabetes mellitus, GERD presents to the ED. Reports a prolonged hospital course following a hernia repair from Sep 19-Nov 14 requiring prolonged intubation/trach, sepsis due to aspiration PNA, renal failure requiring HD and atrial fibrillation. She was discharged on Metoprolol, Amiodarone and Cardizem. She reports intermittent lightheadedness since her discharge. Visiting nurse realized she was severely bradycardic which prompted her to come to the ED. She currently denies any dizziness, chest pain, SOB or palpitations. In the ED, she underwent extensive evaluation. Bradycardic with HR in the 30s. CBC WBC 11.9, Hg 10.4, Hct 32.8, Plt 512. Coag panel within normal limits. CMP Cl 108, bicarb 16, BUN 31, Cr 1.80, glu 208, AST 40. Troponin < 0.012. TSH 11.4, FT4 1.82, FT3 3.5. Mag 1.6. EKG shows ventricular rate of 34, sinus rhythm, Q waves V1/V2, QTc 447. Patient is admitted for symptomatic bradycardia. 12/20 Patient was seen and examined. HR in the 60s. Cardiology recommends no AV clifton blockers, continue to monitor for one more day. Echo shows EF 60-65% with biatrial enlargement and MR. Patient denies dizziness. No other complaints. CBC Hg 9.9 Hct 30.2. BMP bicarb 19, BUN 31, Cr 1.89, AST 47. 12/21 Patient was seen and examined. HR in the 70s. Her SBP has been as high as 202. She was started on Amlodipine 10 mg PO QD and Lisinopril 20 mg PO QD. Hydralazine 25 mg PO QID PRN was added for SBP > 180 and she has received 3 doses so far. Waiting on Cardiology input. 12/22 Patient was seen and examined. Last night, went into A-Fib with RVR. EKG confirmed A-Fib with RVR with ventricular rate of 128. Given one dose of Amiodar one 100 mg and started on Clonidine patch 0.1 transdermal. Other antihypertensive medications include Amlodipine 10 mg PO QD, Chlorthalidone 25 mg PO QD, Lisinopril 40 mg PO QD. Most recent BP is 171/78 HR 89. General: non toxic, no distress, appears at stated age Derm: warm, dry Head: atraumatic, normocephalic, symmetric Eyes: EOMI, no lid lag, anicteric sclera Cardiovascular: Irregularly irregular, no murmur Lungs: CTA bilateral, no rhonchi, no rales , no accessory muscle use Ext: no gross muscle atrophy, 1-2+ bilateral lower extremity edema, no contractures Neuro: no focal neuro deficits Psych: Alert, oriented, appropriate affect Based on my assessment of this patient, this patient meets a high complexity level of care. Patient has an acute diagnosis of symptomatic bradycardia that poses a threat to life or bodily function. Lightheadedness Symptomatic bradycardia: Hold Amiodarone, Metoprolol, Cardizem. Telemetry monitoring. Echo as above. Cardiology consult. Hypertension: Clonidine patch 0.1 transdermal Qweekly. Amlodipine 10 mg PO QD, Chlorthalidone 25 mg PO QD, Lisinopril 40 mg PO QD. Hydralazine 25 mg PO QID PRN for SBP > 180. Monitor vitals, adjust medications if necessary. Diabetes mellitus with hyperglycemia: ISS. Accuchecks ACHS. Hypoglycemic precautions. Normocytic anemia with thrombocytosis: Cyanocobalamin 5000 mcg PO QD. Ferrous sulfate 325 mg PO Q48H. Chronic kidney disease: Avoid nephrotoxins. Transaminitis Subclinical hypothyroidism: TSH > 10. Start Synthroid 25 mcg PO QD. Repeat TSH, FT4/FT3 in 6-8 weeks. Resolved: Leukocytosis CODE STATUS: FULL CODE DVT Prophylaxis: Eliquis GI Prophylaxis: Pepcid Designated medical POA if patient is not able to make medical decisions for themselves: I have reviewed the following senior market intelligence consultant notes: Cardiology note. I have reviewed the results of the following tests: I have ordered the following tests: I have discussed the care of this patient with the following independent historian: and RN. I have independently interpreted the following test below: EKG. I have discussed the management of this patient with the following physician: Objective - Vital Signs Vital signs: Vital Signs Temp 98.2 F 12/22/23 04:00 Pulse 89 12/22/23 11:56 Resp 17 12/22/23 11:56 BP 171/78 12/22/23 11:56 Pulse Ox 95 12/22/23 11:56 FiO2 Intake & Output 12/21/23 12/22/23 12/22/23 18:59 06:59 18:59 Intake Total 780 240 360 Balance 780 240 360 Intake: Oral 780 240 360 Other: Voiding Method Toilet Toilet Toilet # Voids 3 2 2 - Labs CBC & Chem 7: 12/20/23 09:05 12/20/23 09:05 Labs: Abnormal Lab Results - Last 24 Hours (Table) 12/21/23 12/22/23 Range/Units 20:18 11:28 POC Glucose (mg/dL) 117 H 111 H (70-110) mg/dL
--- NOTE | 2023-12-22 14:10 | P.PN ---
Subjective Progress Note Date: 12/22/23 History of present illness: This is a 63-year-old female patient of Dr. Arriaga with past medical history of hypertension, mild aortic stenosis, paroxysmal atrial fibrillation on Eliquis, diabetes mellitus type 2, remote history of tobacco use. We have been asked to evaluate the patient for bradycardia. Patient seen in the emergency center waiting for a bed on the cardiac stepdown unit. Patient gives history of hernia repair surgery 09/19/2023 in [place] and had a very complicated postop course which included acute respiratory failure requiring intubation and mechanical ventilation, possible aspiration pneumonia, acute kidney injury that required hemodialysis, new onset of A-fib with RVR. She was discharged from the hospital on November 14. She has a follow-up appointment with Dr. Sampson Arriaga on December 26. Patient has been maintained outpatient on Eliquis 5 mg twice daily along with Lopressor 100 mg twice daily and amiodarone 200 mg daily. Patient states that she feels fine until she takes her morning medications and after that she starts having dizziness and nausea and she has had some heart rates in the 40s. Yesterday her heart rate was 31 when her home care nurse arrived. Because of the low heart rate, patient was advised to come into the hospital. EKGs and telemetry reviewed. Patient has evidence of slow atrial fibrillation along with intermittent junctional rhythm. Chest x-ray: Cardiomegaly WBC 11.9, hemoglobin 10.4, platelet count 512. Sodium 138, potassium 4.5, chloride 108, CO2 16, BUN 31 creatinine 1.8. Blood sugar 208. Troponins negative x 3. TSH 11.4 with normal free T4 of 1.82 and free T33.5. AST 40 otherwise liver function test are normal. Home cardiac medications: Amiodarone 200 mg daily, Eliquis 5 mg twice daily, Cardizem 120 mg twice daily, Lopressor 100 mg twice daily. Lexiscan stress test performed 06/21/2023 in the office was normal myocardial perfusion and function, negative stress test by EKG criteria. Echocardiogram performed in the office on 06/17/2023 revealed normal LV function with a EF of 55 to 60%. Grade 1 diastolic dysfunction. Mild concentric left ventricular hypertrophy. Poorly seen aortic valve. Cannot rule out bicuspid aortic valve versus fused valves. There is aortic valve sclerosis. Mild aortic stenosis. Trace mitral regurgitation. 12/21/2023 Her heart rates have been better. Blood pressure has not been well controlled. She is feeling ok, denies any lightheadedness, chest pain, or headaches. ECHO 12/20/23 with EF 60-65%, moderate mitral regurgitation, severe LA dilation. 12/22 This morning, patient went into A-fib with RVR and shortly later converted to sinus rhythm again. Patient was not medicated during that time. Blood pressure 190/86 during the night and cardiology was called during the night, Della jackson ch was added. Echocardiogram results reviewed with the patient and her . Only complaint for the patient today is that her hands are feeling tight but better now. Discussed option for possible need for pacemaker down the road for tachybradycardia syndrome. Heart rate is 89, blood pressure 171/78, pulse ox 95% on room air. Physical examination: Gen: This is a morbidly obese 63-year-old female. She appears to be in no acute distress. VS: reviewed HEENT: Head is atraumatic, normocephalic. Pupils equal, round. Sclerae is anicteric. NECK: Supple. No JVD. LUNGS: Clear to auscultation. No wheezes or rhonchi. No intercostal retractions. HEART: Regular rate and rhythm. Systolic murmur. ABDOMEN: Soft No tenderness. EXTREMITIES: No pedal edema. No calf tenderness. NEUROLOGICAL: Patient is awake, alert and oriented x3. Assessment: Slow atrial fibrillation with junctional rhythm Acute kidney injury Paroxysmal atrial fibrillation Mild aortic stenosis Hypothyroidism, new diagnosis, patient has been started on levothyroxine Bradycardia Plan: Avoid all AV clifton blockers, amiodarone Lopressor, and Cardizem have been on hold Continue telemetry monitoring Continue current blood pressure medications. Discussed option of atrial fibrillation ablation and pacemaker implantation may be beneficial and would be evaluated as an outpatient. Further recommendations to follow based upon clinical course. Possible discharge home tomorrow if remains stable. Nurse practitioner note has been reviewed, I agree with documented findings and plan of care. Patient was seen and examined. Objective - Vital Signs Vital signs: Vital Signs Temp 98.2 F 12/22/23 04:00 Pulse 79 12/22/23 04:00 Resp 18 12/22/23 04:00 BP 170/82 12/22/23 05:45 Pulse Ox 94 L 12/22/23 04:00 FiO2 Intake & Output 12/21/23 12/22/23 12/22/23 18:59 06:59 18:59 Intake Total 780 240 360 Balance 780 240 360 Intake: Oral 780 240 360 Other: Voiding Method Toilet Toilet # Voids 3 2 2 - Labs CBC & Chem 7: 12/20/23 09:05 12/20/23 09:05 Labs: Abnormal Lab Results - Last 24 Hours (Table) 12/21/23 Range/Units 20:18 POC Glucose (mg/dL) 117 H (70-110) mg/dL
[2023-12-22 16:04] LABS: Glucose,Whole Blood 109 mg/dL (70-110)
[2023-12-22] MEDS: MELATONIN 3 MG TABLET PO SCH (19:47)
[2023-12-22 19:55] LABS: Glucose,Whole Blood 137 mg/dL (70-110)
[2023-12-23] MEDS: LEVOTHYROXINE 25 MCG TAB PO SCH (05:51)
[2023-12-23 05:52] LABS: Glucose,Whole Blood 119 mg/dL (70-110)
[2023-12-23] MEDS: INSULIN ASPART (NovoLOG) 100 UNIT/ML VIAL SQ SCH ×2 (05:52→12:08)
[2023-12-23] MEDS: CHLORTHALIDONE 25 MG TAB PO SCH (08:15)
[2023-12-23] MEDS: CYANOCOBALAMIN 500 MCG TAB PO SCH (08:15)
[2023-12-23] MEDS: FERROUS SULFATE 325 MG TAB PO SCH (08:15)
[2023-12-23] MEDS: amLODIPine 10 MG TAB PO SCH (08:15)
[2023-12-23] MEDS: APIXABAN 5 MG TAB PO SCH (08:15)
[2023-12-23] MEDS: busPIRone HCl 10 MG TAB PO SCH (08:15)
[2023-12-23] MEDS: FAMOTIDINE 20 MG TAB PO SCH (08:16)
[2023-12-23] MEDS: lisinopriL 20 MG TAB PO SCH (08:16)
[2023-12-23 08:20] VITALS: PULSE 81; RESP 20
[2023-12-23] MEDS ORDERED: hydrALAZINE HCL 25 MG TAB PO SCH ×2 (09:00→16:00)
[2023-12-23 09:30] LABS: African American GFR (CKD) 40 (>60 ml/min/1.73 sqM); Anion Gap 11 mmol/L; Blood Urea Nitrogen 29 mg/dL (7-17); Calcium 9.7 mg/dL (8.4-10.2); Carbon Dioxide 23 mmol/L (22-30); Chloride 106 mmol/L (98-107); Glucose 103 mg/dL (74-99); Non-African American GFR(CKD) 34 (>60 ml/min/1.73 sqM); Potassium 3.9 mmol/L (3.5-5.1); Sodium 140 mmol/L (137-145)
--- NOTE | 2023-12-23 10:02 | P.PN ---
Subjective Progress Note Date: 12/23/23 History of present illness: This is a 63-year-old female patient of Dr. Arriaga with past medical history of hypertension, mild aortic stenosis, paroxysmal atrial fibrillation on Eliquis, diabetes mellitus type 2, remote history of tobacco use. We have been asked to evaluate the patient for bradycardia. Patient seen in the emergency center waiting for a bed on the cardiac stepdown unit. Patient gives history of hernia repair surgery 09/19/2023 in [place] and had a very complicated postop course which included acute respiratory failure requiring intubation and mechanical ventilation, possible aspiration pneumonia, acute kidney injury that required hemodialysis, new onset of A-fib with RVR. She was discharged from the hospital on November 14. She has a follow-up appointment with Dr. Sampson Arriaga on December 26. Patient has been maintained outpatient on Eliquis 5 mg twice daily along with Lopressor 100 mg twice daily and amiodarone 200 mg daily. Patient states that she feels fine until she takes her morning medications and after that she starts having dizziness and nausea and she has had some heart rates in the 40s. Yesterday her heart rate was 31 when her home care nurse arrived. Because of the low heart rate, patient was advised to come into the hospital. EKGs and telemetry reviewed. Patient has evidence of slow atrial fibrillation along with intermittent junctional rhythm. Chest x-ray: Cardiomegaly WBC 11.9, hemoglobin 10.4, platelet count 512. Sodium 138, potassium 4.5, chloride 108, CO2 16, BUN 31 creatinine 1.8. Blood sugar 208. Troponins negative x 3. TSH 11.4 with normal free T4 of 1.82 and free T33.5. AST 40 otherwise liver function test are normal. Home cardiac medications: Amiodarone 200 mg daily, Eliquis 5 mg twice daily, Cardizem 120 mg twice daily, Lopressor 100 mg twice daily. Lexiscan stress test performed 06/21/2023 in the office was normal myocardial perfusion and function, negative stress test by EKG criteria. Echocardiogram performed in the office on 06/17/2023 revealed normal LV function with a EF of 55 to 60%. Grade 1 diastolic dysfunction. Mild concentric left ventricular hypertrophy. Poorly seen aortic valve. Cannot rule out bicuspid aortic valve versus fused valves. There is aortic valve sclerosis. Mild aortic stenosis. Trace mitral regurgitation. 12/21/2023 Her heart rates have been better. Blood pressure has not been well controlled. She is feeling ok, denies any lightheadedness, chest pain, or headaches. ECHO 12/20/23 with EF 60-65%, moderate mitral regurgitation, severe LA dilation. 2 This morning, patient went into A-fib with RVR and shortly later converted to sinus rhythm again. Patient was not medicated during that time. Blood pressure 190/86 during the night and cardiology was called during the night, Della jackson ch was added. Echocardiogram results reviewed with the patient and her . Only complaint for the patient today is that her hands are feeling tight but better now. Discussed option for possible need for pacemaker down the road for tachybradycardia syndrome. Heart rate is 89, blood pressure 171/78, pulse ox 95% on room air. 2 This morning, patient is sinus rhythm ranging in the 70s to 100 range. Blood pressure is elevated 169/76, pulse ox 96% on room air. Laboratory studies are pending at the time this dictation. Patient states she has been up to the bathroom by herself without difficulty. Physical examination: Gen: This is a morbidly obese 63-year-old female. She appears to be in no acute distress. VS: reviewed HEENT: Head is atraumatic, normocephalic. Pupils equal, round. Sclerae is anicteric. NECK: Supple. No JVD. LUNGS: Clear to auscultation. No wheezes or rhonchi. No intercostal retractions. HEART: Regular rate and rhythm. Systolic murmur. ABDOMEN: Soft No tenderness. EXTREMITIES: No pedal edema. No calf tenderness. NEUROLOGICAL: Patient is awake, alert and oriented x3. Assessment: Slow atrial fibrillation with junctional rhythm Acute kidney injury Paroxysmal atrial fibrillation Mild aortic stenosis Hypothyroidism, new diagnosis, patient has been started on levothyroxine Bradycardia Plan: Avoid all AV clifton blockers, amiodarone Lopressor, and Cardizem have been on hold Continue telemetry monitoring Continue current blood pressure medications. Add hydralazine 25 mg 3 times daily scheduled Discussed option of atrial fibrillation ablation and pacemaker implantation may be beneficial and would be evaluated as an outpatient. Patient is cleared for discharge home if remains stable. Patient to monitor BP at home twice daily and bring recordings to her next appointment. Patient to follow-up with Dr. Fer Badillo as scheduled on Monday. Nurse practitioner note has been reviewed, I agree with documented findings and plan of care. Patient was seen and examined. Objective - Vital Signs Vital signs: Vital Signs Temp 98.1 F 12/22/23 20:00 Pulse 74 12/23/23 04:00 Resp 16 12/23/23 04:00 BP 169/76 12/23/23 04:00 Pulse Ox 96 12/23/23 04:00 FiO2 Intake & Output 12/22/23 12/23/23 12/23/23 18:59 06:59 18:59 Intake Total 580 120 Balance 580 120 Intake: Oral 580 120 Other: Voiding Method Toilet Toilet # Voids 2 2 # Bowel Movements 1 - Labs CBC & Chem 7: 12/20/23 09:05 12/23/23 06:59 Labs: Abnormal Lab Results - Last 24 Hours (Table) 12/22/23 12/22/23 12/23/23 Range/Units 11:28 19:52 05:50 POC Glucose (mg/dL) 111 H 137 H 119 H (70-110) mg/dL
[2023-12-23 11:35] LABS: Glucose,Whole Blood 112 mg/dL (70-110)
--- NOTE | 2023-12-23 11:51 | P.DS ---
Providers Date of admission: 12/19/23 15:21 Expected date of discharge: 12/23/23 Attending physician: Muriel Wyatt DO Consults: 12/19/23 15:17 Consult Physician Routine Consulting Provider: Joey Maxwell Consult Reason/Comments: bradycardia Do you want consulting provider notified?: Already Contacted Primary care physician: Michael Dan MD Hospital Course: 63-year-old female with PMH with PMH of atrial fibrillation, diabetes mellitus, GERD presents to the ED. Reports a prolonged hospital course following a hernia repair from Sep 19-Nov 14 requiring prolonged intubation/trach, sepsis due to aspiration PNA, renal failure requiring HD and atrial fibrillation. She was discharged on Metoprolol, Amiodarone and Cardizem. She reports intermittent lightheadedness since her discharge. Visiting nurse realized she was severely bradycardic which prompted her to come to the ED. She currently denies any dizziness, chest pain, SOB or palpitations. In the ED, she underwent extensive evaluation. Bradycardic with HR in the 30s. CBC WBC 11.9, Hg 10.4, Hct 32.8, Plt 512. Coag panel within normal limits. CMP Cl 108, bicarb 16, BUN 31, Cr 1.80, glu 208, AST 40. Troponin < 0.012. TSH 11.4, FT4 1.82, FT3 3.5. Mag 1.6. EKG shows ventricular rate of 34, sinus rhythm, Q waves V1/V2, QTc 447. Patient is admitted for symptomatic bradycardia. Metoprolol, Amiodarone, Cardizem discontinued. Echo shows EF 60-65% with biatrial enlargement and MRHollie Started on Synthroid 25 mcg PO QD for subclinical hypothyroidism, re-check TSH/FT4 in 6-8 weeks. She did have a bout of A-Fib with RVR on 12/22, given one dose of Amiodarone PO, resolved. There has been difficulty in getting her BP under control. Currently on Clonidine patch 0.1/24H transdermal, Amlodipine 10 mg PO QD, Chlorthalidone 25 mg PO QD, Lisinopril 40 mg PO QD, Hydralazine 25 mg PO TID. 12/23 Patient was seen and examined. SBP ranging from 146-185 DBP ranging from 71- 88 over the past 24H. Currently on Clonidine patch 0.1/24H transdermal, Amlodipine 10 mg PO QD, Chlorthalidone 25 mg PO QD, Lisinopril 40 mg PO QD. Cardiology has added Hydralazine 25 mg PO TID and cleared the patient for discharge. Prescriptions sent to her pharmacy. BMP BUN 29, Cr 1.57. Advised to check BP 2-3 times daily and keep a log. Follow up with Cardiology within 1 week and PCP within 1-2 days of discharge. General: non toxic, no distress, appears at stated age Derm: warm, dry Head: atraumatic, normocephalic, symmetric Eyes: EOMI, no lid lag, anicteric sclera Cardiovascular: Irregularly irregular, no murmur Lungs: CTA bilateral, no rhonchi, no rales , no accessory muscle use Ext: no gross muscle atrophy, 1-2+ bilateral lower extremity edema, no contractures Neuro: no focal neuro deficits Psych: Alert, oriented, appropriate affect Discharge Diagnosis: Lightheadedness Symptomatic bradycardia: Hold Amiodarone, Metoprolol, Cardizem. Atrial fibrillation with RVR Hypertension: Clonidine patch 0.1 transdermal Qweekly. Amlodipine 10 mg PO QD, Chlorthalidone 25 mg PO QD, Lisinopril 40 mg PO QD, Hydralazine 25 mg PO TID. Diabetes mellitus with hyperglycemia: Resume Lantus 5 units QHS on discharge. Normocytic anemia with thrombocytosis: Cyanocobalamin 5000 mcg PO QD. Ferrous sulfate 325 mg PO Q48H. Chronic kidney disease: Avoid nephrotoxins. Transaminitis Subclinical hypothyroidism: TSH > 10. Start Synthroid 25 mcg PO QD. Repeat TSH, FT4/FT3 in 6-8 weeks. Resolved: Leukocytosis This complex discharge took 35 minutes to complete. Patient Condition at Discharge: Stable Plan - Discharge Summary Discharge Rx Participant: No New Discharge Prescriptions: New Chlorthalidone [Hygroton] 25 mg PO DAILY #30 tab Levothyroxine Sodium [Synthroid] 25 mcg PO DAILY@0630 #30 tab lisinopriL [Zestril] 40 mg PO DAILY #60 tab hydrALAZINE HCL [Apresoline] 25 mg PO TID #90 tab cloNIDine 0.1 MG/24HR PATCH [Catapres-TTS] 1 patch TRANSDERM Q7D #4 patch amLODIPine [Norvasc] 10 mg PO DAILY #30 tab Continue Cyanocobalamin (Vitamin B-12) [Vitamin B-12] 5,000 mcg PO DAILY Ascorbic Acid [Vitamin C] 500 mg PO DAILY busPIRone HCl [Buspar] 10 mg PO Q12H Famotidine [Pepcid] 20 mg PO DAILY Ferrous Sulfate [Iron (65 MG Elemental)] 325 mg PO Q48H Insulin Glargine,Hum.rec.anlog [Lantus Solostar Pen] 15 units SQ HS Melatonin 6 mg PO HS Apixaban [Eliquis] 5 mg PO BID Lactulose 20 gm PO DAILY PRN PRN Reason: Constipation Discontinued Amiodarone [Cordarone] 200 mg PO DAILY dilTIAZem HCL [Cardizem] 120 mg PO BID Metoprolol Tartrate [Lopressor] 100 mg PO BID Discharge Medication List Cyanocobalamin (Vitamin B-12) [Vitamin B-12] 5,000 mcg PO DAILY 08/12/19 [History] Apixaban [Eliquis] 5 mg PO BID 12/19/23 [History] Ascorbic Acid [Vitamin C] 500 mg PO DAILY 12/19/23 [History] Famotidine [Pepcid] 20 mg PO DAILY 12/19/23 [History] Ferrous Sulfate [Iron (65 MG Elemental)] 325 mg PO Q48H 12/19/23 [History] Insulin Glargine,Hum.rec.anlog [Lantus Solostar Pen] 15 units SQ HS 12/19/23 [History] Lactulose 20 gm PO DAILY PRN 12/19/23 [History] Melatonin 6 mg PO HS 12/19/23 [History] busPIRone HCl [Buspar] 10 mg PO Q12H 12/19/23 [History] Chlorthalidone [Hygroton] 25 mg PO DAILY #30 tab 12/23/23 [Rx] Levothyroxine Sodium [Synthroid] 25 mcg PO DAILY@0630 #30 tab 12/23/23 [Rx] amLODIPine [Norvasc] 10 mg PO DAILY #30 tab 12/23/23 [Rx] cloNIDine 0.1 MG/24HR PATCH [Catapres-TTS] 1 patch TRANSDERM Q7D #4 patch [Rx] hydrALAZINE HCL [Apresoline] 25 mg PO TID #90 tab 02/03/24 [Rx] lisinopriL [Zestril] 40 mg PO DAILY #60 tab 12/23/23 [Rx] Follow up Appointment(s)/Referral(s): Joey Maxwell DO [STAFF PHYSICIAN] - 1 Week Michael Dan MD [Primary Care Provider] - 1-2 days [facility], [NON-STAFF] - Activity/Diet/Wound Care/Special Instructions: Diet: Low salt, Cardiac, Diabetic Monitor blood pressure atleast twice a day and keep a log. Follow up with Cardiology within 1 week of discharge for further medication adjustments. Discharge Disposition: HOME SELF-CARE
[2023-12-23 11:59] VITALS: BP 167/74; TEMP 97.9
== END 2023-12-23 13:26 | disposition home or self-care (01) | DRG 309 ==
LOC: EC 13:53 → 3SCARD 15:21
PROVIDERS: ADMIT Internal Medicine; ATTEND Internal Medicine
DX: I48.0 Paroxysmal atrial fibrillation (principal); N18.4 Chronic kidney disease, stage 4 (severe); D63.1 Anemia in chronic kidney disease; E11.22 Type 2 diabetes mellitus with diabetic chronic kidney disease; E11.65 Type 2 diabetes mellitus with hyperglycemia; I12.9 Hypertensive chronic kidney disease with stage 1 through stage 4 chronic kidney disease, or unspecified chronic kidney disease; I08.0 Rheumatic disorders of both mitral and aortic valves; E03.8 Other specified hypothyroidism; D75.839 Thrombocytosis, unspecified; R74.01 Elevation of levels of liver transaminase levels; Z79.4 Long term (current) use of insulin; Z79.84 Long term (current) use of oral hypoglycemic drugs; Z79.899 Other long term (current) drug therapy; Z85.038 Personal history of other malignant neoplasm of large intestine; Z87.891 Personal history of nicotine dependence; Z79.01 Long term (current) use of anticoagulants
CPT/HCPCS: 36415; 71046; 80048; 80053; 83735; 84439; 84443; 84481; 84484; 85025; 85610; 85730; 93005; 93306; 94760; 96365; 96366; 99285

== ENCOUNTER → 2024-01-02 | Outpatient (CLI) | payer MEDICARE ==
[2024-01-02 15:48] LABS: ALT 23 U/L (8-44); AST 24 U/L (13-35); Chol/HDL Ratio 4.15 Ratio; LDL Cholesterol,Calculated 101.5 mg/dL (0.0-131.0)
== END | disposition home or self-care (01) ==
LOC: LABWHC1 08:06
PROVIDERS: ATTEND Internal Medicine Cardiovascular Disease
DX: E78.2 Mixed hyperlipidemia (principal)
CPT/HCPCS: 36415; 80061; 84450; 84460

== ENCOUNTER → 2024-01-25 | Outpatient (CLI) | payer MEDICARE ==
[2024-01-25 14:36] VITALS: BP 164/77; PULSE 94; RESP 18; TEMP 97.7
--- NOTE | 2024-01-25 15:06 | P.SLEEP ---
History of Present Illness DATE: 01/25/2024 CONSULTATION/NEW PATIENT EVALUATION HISTORY OF PRESENT ILLNESS/SLEEP-WAKE EVALUATION: 63-year-old lady had been ev aluated in the sleep center for possible obstructive sleep apnea hypopnea syndrome. SLEEP SCHEDULE: Usually sleep schedule from 10 PM to 7 AM. FALLING ASLEEP: No problems with falling asleep. DURING SLEEP: Patient has witnessed episodes of shallow breathing during the sleep while she was in the hospital. Patient wakes up from sleep 2 times with nocturia. No history of hypnogogical hallucinations, sleep paralysis, or cataplexy. DURING THE DAY/WAKE STATE: Patient may feel occasional sleepiness during the day while watching TV or lying down to rest in afternoon. [place] sleepiness scale is 5. Patient does not take naps. PAST MEDICAL HISTORY: Hypertension, diabetes mellitus, aspiration pneumonia, atrial fibrillation, renal failure treated by hemodialysis normalized presently, hypothyroidism. PAST SURGICAL HISTORY: Resection of colon for treatment of cancer. MEDICATIONS: See below. SOCIAL HISTORY: Quit smoking in 2019, no recent usage of alcohol. FAMILY HISTORY: See below. REVIEW OF SYSTEMS: Multiple awakenings from sleep. No fevers. No double vision. No recent chest pain. No shortness of breath. No abdominal pain. No bleeding episodes. No blood in urine. No seizure episodes. PHYSICAL EXAMINATION: GENERAL: A pleasant patient without any distress. VITAL SIGNS: See below. HEENT: PERRLA, EOMI. Evaluation of oropharynx showed tongue protrudes midline, low position of soft palate Mallampati 4. NECK: Supple. No JVD. Thyroid is not palpable. 18 inches in circumference. LUNGS: Clear to percussion and to auscultation. Good air exchange. No wheezing or rhonchi. HEART: S1, S2 regular. No murmurs, gallops or rubs. ABDOMEN: Soft and nontender. Bowel sounds are present. No organomegaly appreciated. Obese EXTREMITIES: No clubbing or cyanosis. CASE CONSULTANT: Awake, alert, and oriented x3. Cranial nerves 2 to 7 intact. There is no fasciculation or atrophy noted. No focal deficits observed. ASSESSMENT: 1. Multiple awakenings from sleep with nocturia, extremely low position of soft palate Mallampati 4, wide neck 18 inches in circumference, witnessed episodes of shallow breathing while patient was in the hospital. Obstructive sleep apnea hypopnea syndrome. 2. Hypertension, on 5 medications for controlling blood pressure, blood pressure still increased today in the office. 3. Diabetes mellitus. 4. History of atrial fibrillation in the time when patient had acute renal failure. 5 history of acute renal failure, status posttreatment with hemodialysis. 6 . History of colon cancer, status post colon resection. 7. Hypothyroidism. 8. History of aspiration pneumonia. 9. Obesity, BMI 42.0 PLAN: 1. Sleep test for evaluation of patient's breathing during sleep. 2. CPAP/BiPAP titration if sleep study confirms obstructive sleep apnea- hypopnea syndrome. 3. Preferable position during sleep on the side. 4. No driving if patient feels any sleepiness. Patient is aware of civil and criminal liability for unsafe driving. 5. Sleep hygiene with regular sleep time for at least 7.5-8 hours. 6. Watching and losing weight. Thank you very much for referring this patient for consultation. Sincerely, Cam Vallecillo MD, PhD, FAASM. Diplomat of [place] [employer], Sleep Medicine Board by [place] [employer] [place] [employer] Dealer of [facility] [place] Past Medical History Past Medical History: Atrial Fibrillation, Cancer, Diabetes Mellitus, Pneumonia, Renal Disease, Thyroid Disorder Additional Past Medical History / Comment(s): colon cancer, colon resection, kidneys started shutting down, pneumonia was aspiration, Blood group =o, Rh +, anti-e (from 11/02/23) History of Any Multi-Drug Resistant Organisms: None Reported Past Surgical History: Bowel Resection, Hernia Repair Additional Past Surgical History / Comment(s): FRONT TEETH EXTRACTIONS Past Anesthesia/Blood Transfusion Reactions: No Reported Reaction Additional Past Anesthesia/Blood Transfusion Reaction / Comment(s): DENTAL PROCEDURE ONLY Past Psychological History: No Psychological Hx Reported Smoking Status: Former smoker Past Alcohol Use History: Occasional Additional Past Alcohol Use History / Comment(s): STARTED SMOKING AT AGE 16 SMOKES 1/2PPD. QUIT SMOKING 5 WEEKS AGO. Past Drug Use History: Marijuana Additional Drug Use History / Comment(s): RARE OCCAS - Past Family History Mother Family Medical History: No Reported History Additional Family Medical History / Comment(s): Dad wasa alcoholic, mom pass when patient 2 years old so patient doesn't really know moms medical hx. Medications and Allergies Home Medications Medication Instructions Recorded Confirmed Type Cyanocobalamin (Vitamin B-12) 5,000 mcg PO DAILY 08/12/19 12/19/23 History [Vitamin B-12] Apixaban [Eliquis] 5 mg PO BID 12/19/23 12/19/23 History Ascorbic Acid [Vitamin C] 500 mg PO DAILY 12/19/23 12/19/23 History Famotidine [Pepcid] 20 mg PO DAILY 12/19/23 12/19/23 History Ferrous Sulfate [Iron (65 MG 325 mg PO Q48H 12/19/23 12/19/23 History Elemental)] Insulin Glargine,Hum.rec.anlog 15 units SQ HS 12/19/23 12/19/23 History [Lantus Solostar Pen] Lactulose 20 gm PO DAILY PRN 12/19/23 12/19/23 History Melatonin 6 mg PO HS 12/19/23 12/19/23 History busPIRone HCl [Buspar] 10 mg PO Q12H 12/19/23 12/19/23 History Chlorthalidone [Hygroton] 25 mg PO DAILY #30 tab 12/23/23 Rx Levothyroxine Sodium [Synthroid] 25 mcg PO DAILY@0630 #30 tab 12/23/23 Rx amLODIPine [Norvasc] 10 mg PO DAILY #30 tab 12/23/23 Rx cloNIDine 0.1 MG/24HR PATCH 1 patch TRANSDERM Q7D #4 patch 12/23/23 Rx [Catapres-TTS] hydrALAZINE HCL [Apresoline] 25 mg PO TID #90 tab 12/23/23 Rx lisinopriL [Zestril] 40 mg PO DAILY #60 tab 12/23/23 Rx Allergies Allergy/AdvReac Type Severity Reaction Status Date / Time No Known Allergies Allergy Verified 12/19/23 15:32 Physical Exam Vitals: Vital Signs Temp Pulse Resp BP Pulse Ox 01/25/24 14:24 97.7 F 94 18 164/77 97 Intake and Output 01/24/24 01/25/24 01/25/24 22:59 06:59 14:59 Other: Weight 104.326 kg Sleep Note - Sleep Data ESS Total: 5 - Sleep Note Sleep Note: Temperature: 97.7 F Pulse Rate: 94 Respiratory Rate: 18 Blood Pressure: 164/77 SpO2: 97 Height: 5 ft 2 in Weight: 104.326 kg BMI: Neck Circumference: 18
== END ==
LOC: 3 N SLEEP 13:51
PROVIDERS: ATTEND Internal Medicine
DX: G47.33 Obstructive sleep apnea (adult) (pediatric) (principal); I10 Essential (primary) hypertension; E11.9 Type 2 diabetes mellitus without complications; I48.91 Unspecified atrial fibrillation; E03.9 Hypothyroidism, unspecified; E66.9 Obesity, unspecified; N17.9 Acute kidney failure, unspecified; Z68.41 Body mass index [BMI] 40.0-44.9, adult; Z85.038 Personal history of other malignant neoplasm of large intestine; Z99.2 Dependence on renal dialysis; Z87.01 Personal history of pneumonia (recurrent); Z79.01 Long term (current) use of anticoagulants; Z79.4 Long term (current) use of insulin; Z79.899 Other long term (current) drug therapy; Z79.890 Hormone replacement therapy; Z87.891 Personal history of nicotine dependence
CPT/HCPCS: 99211

== ENCOUNTER → 2024-02-02 | Outpatient (CLI) | payer MEDICARE ==
--- NOTE | 2024-02-07 14:43 | P.PCN ---
Description of Procedure: CLINICAL: A home sleep apnea test has been done for confirmation of possible obstructive sleep apnea-hypopnea syndrome. DESCRIPTION OF PROCEDURE: RESULTS: Recording time was 7 hours 10 minutes. Evaluation time was 7 hours 6 minutes. Evaluation time is sufficient for making conclusion about results of the test. Raw data of sleep recording has been reviewed and is adequate. Respiratory channel showed 3 apneas and 33 hypopneas. Apnea-hypopnea index was 5.1 per hour. Pulse rate in the range between minimum 66, maximum 96, average 75 by computer calculation. Lowest desaturation was 79%. IMPRESSION: 1. Obstructive Sleep Apnea Hypopnea Syndrome and mild range. 2. Hypertension 3. History of atrial fibrillation episode while patient had acute renal failure and was on dialysis, Please see other impressions from consultation. PLAN: 1. The patient will be started on auto-PAP treatment for correction of respiratory abnormallities during sleep. 2. I will see patient for follow up visit to discuss results of the test, evaluate clinical response on treatment with PAP therapy and make any necessary adjustments related to mask fitting, pressure, and humidification. 3. Watching and losing weight. 4. Sleep hygiene with regular time in bed for at least 8 hours. 5. No driving if feeling any sleepiness. Thank you very much for allowing me to participate in the management of your patient. Sincerely, Cam Vallecillo MD, PhD, FAASM Diplomat of [employer] Sleep Medicine Board of [place] [employer] Operator of [facility] [place]
== END ==
LOC: 3 N SLEEP 11:03
PROVIDERS: ATTEND Internal Medicine
DX: G47.33 Obstructive sleep apnea (adult) (pediatric) (principal); I10 Essential (primary) hypertension; I48.91 Unspecified atrial fibrillation; N17.9 Acute kidney failure, unspecified; Z99.2 Dependence on renal dialysis; Z99.89 Dependence on other enabling machines and devices; Z79.899 Other long term (current) drug therapy; Z87.891 Personal history of nicotine dependence

== ENCOUNTER → 2024-03-06 | Outpatient (CLI) | payer MEDICARE ==
[2024-03-06 12:06] LABS: African American GFR (CKD) 48 (>60 ml/min/1.73 sqM); Blood Urea Nitrogen 45 mg/dL (7-17); Non-African American GFR(CKD) 41 (>60 ml/min/1.73 sqM)
--- NOTE | 2024-03-06 14:33 | CT ---
EXAMINATION TYPE: CT ChestAbdPelvis wo con DATE OF EXAM: 03/06/2024 COMPARISON: 08/14/2023, 02/13/2023 HISTORY: 64-year-old female C18.9, h/o colon CA, f/u TECHNIQUE: Contiguous axial scanning of the chest, abdomen, and pelvis without IV contrast. Coronal a nd sagittal reconstructions performed. CT DLP: 1280 mGycm Automated exposure control for dose reduction was used. FINDINGS: CHEST: Heart normal size without pericardial effusion. Mild aortic valvular calcifications. Mild LAD coronar y artery calcifications. Mild atherosclerotic arch calcifications with bovine configuration to the aortic arch. There may be m ild stenosis at the origin of the right subclavian artery. No thoracic lymph adenopathy by CT size criteria. Lungs show mild emphysematous change and a few stable 5 mm pulmonary nodules, one of which is calcifi ed suggesting prior granulomatous disease. No consolidation or pleural effusion. ABDOMEN: r lack of IV contrast limits assessment of the solid abdominal viscera, lymph nodes, and vascular str uctures. Liver enlarged at 19.0 cm. Small layering gallstones. No abnormal gallbladder distention. Unchanged nodularity right adrenal gland measuring 1.7 cm. Left adrenal gland, spleen, and pancreas s how no gross abnormal value by noncontrast technique. Redemonstrated cysts of the bilateral kidneys measuring up to 6.6 cm on the right and 1.7 cm on the l eft. No hydronephrosis. No dilated small bowel, free fluid, or free air. No mesenteric or retroperitoneal lymphadenopathy. Scattered mild stool. Redundant splenic flexure of the colon. There is a staple line from prior resec tion and reanastomosis at the distal sigmoid colon. Oral contrast progressed to the descending colon. No pericolonic inflammatory change. Interval repair of the patient's previous infraumbilical rectus diastases. There is postsurgical corbett ge with a fluid collection measuring 5.5 x 4.1 x 1.4 cm along the left paramedian infraumbilical deep subcutaneous layer, probable postoperative seroma. Correlate for any point tenderness to exclude inf ective fluid. PELVIS: Bladder is urine distended. Uterus anteverted. Small bilateral ovaries. Suspect a subserosal fibroid left anterior lower uterine segment, unchanged. Small bilateral ovaries. No abnormal fluid collection the pelvis. No pelvic lymphadenopathy. BONES: Mild degenerative change of the hips. Mild degenerative change pubic symphysis. Hypertrophic facet ar thropathy mid to lower lumbar spine. No osseous destructive process. IMPRESSION: 1. PRIOR RESECTION AT THE DISTAL SIGMOID COLON. A FEW SCATTERED 5 MM PULMONARY NODULES ARE UNCHANGED. ASSESSMENT OF THE SOLID ABDOMINAL VISCERA IS LIMITED DUE TO LACK OF IV CONTRAST BUT OTHERWISE, NO FI NDINGS TO SUGGEST RECURRENT/METASTATIC DISEASE. 2. INTERVAL REPAIR OF THE PATIENT'S INFRAUMBILICAL RECTUS DIASTASES. THERE IS A 5.5 CM FLUID COLLECTI ON IN THE DEEP SUBCUTANEOUS ADIPOSE LAYER HERE PROBABLY REPRESENTING POSTOPERATIVE SEROMA. CLINICALLY CORRELATE. 3. COPD WITH MILD EMPHYSEMA, HEPATOMEGALY AT 19.0 CM, AND CHOLELITHIASIS.
== END | disposition home or self-care (01) ==
LOC: RADCTMAIN 11:20
PROVIDERS: ATTEND Internal Medicine Hematology & Oncology
DX: C18.9 Malignant neoplasm of colon, unspecified (principal); D60.9 Acquired pure red cell aplasia, unspecified; J44.9 Chronic obstructive pulmonary disease, unspecified; R16.0 Hepatomegaly, not elsewhere classified; K80.20 Calculus of gallbladder without cholecystitis without obstruction
CPT/HCPCS: 36415; 71250; 74176; 82565; 84520

== ENCOUNTER → 2024-09-17 | Outpatient (CLI) | payer MEDICARE ==
[2024-09-17 10:43] LABS: African American GFR (CKD) 51 (>60 ml/min/1.73 sqM); Blood Urea Nitrogen 30 mg/dL (7-17); Non-African American GFR(CKD) 45 (>60 ml/min/1.73 sqM)
--- NOTE | 2024-09-17 14:44 | CT ---
EXAMINATION TYPE: CT ChestAbdPelvis w con CT DLP: 1713 mGycm, Automated exposure control for dose reduction was used. DATE OF EXAM: 09/17/2024 12:27 PM COMPARISON: Multiple CT chest abdomen pelvis with most recent 03/06/2024 CLINICAL INDICATION:Female, 64 years old with history of C18.9 COLON CANCER; PHH, f/u colon ca Technique: Multiple axial images of the chest, abdomen, and pelvis were obtained following the intrav enous administration of 100 mL Isovue-300. Oral contrast was administered. Two-dimensional coronal an d sagittal reconstructions were obtained. Findings: CHEST: LUNGS/ PLEURA: No pleural effusion, pneumothorax, focal consolidation. Mild centrilobular emphysemat ous changes with few stable 5 mm pulmonary nodules with one of them representing calcification likely prior granulomatous disease. No new or enlarging pulmonary nodules. AIRWAY: Patent and unremarkable.. HEART: Size within normal limits. No pericardial effusion. Mild LAD coronary calcifications. Mild aor tic valvular calcifications. MEDIASTINUM: No evidence of adenopathy. VASCULATURE: No aortic aneurysm. Mild atherosclerotic arch calcifications with bovine configuration to the aortic arch. Mild stenosis of the origin the right subclavian artery. MUSCULOSKELETAL: No acute osseous abnormalities. No aggressive osseous lesion. SOFT TISSUES/LYMPH NODES: Unremarkable. LOWER NECK: No significant findings. ABDOMEN: ABDOMEN LIVER: Mildly enlarged measuring 18.6 cm in CC dimension. Diffusely hypoattenuating. No focal lesion identified. GALLBLADDER AND BILE DUCTS: Small layering gallstones. No color distention or surrounding inflammator y changes. No biliary ductal dilatation. PANCREAS: Unremarkable. SPLEEN: Unremarkable. ADRENAL GLANDS: Left gynecomastia is unremarkable. Stable nodularity to the right adrenal gland measu ring up to 1.9 cm. KIDNEYS AND URETERS: No evidence of hydronephrosis. Nonobstructive right renal 4 mm calculus. The kid neys enhance symmetrically. Stable right renal cysts measuring up to 6.1 cm. Stable left lower pole 1 .6 cm cyst. PELVIS BLADDER: Unremarkable REPRODUCTIVE: Uterus is anteverted with redemonstration of a suspected subserosal fibroid of the left anterior lower uterine segment. ABDOMEN & PELVIS STOMACH AND BOWEL: Stomach and duodenum are unremarkable. Staple line from prior resection and re-gomez stomosis of the distal sigmoid colon. No wall thickening to suggest local recurrence. Redundant sigmo id colon. Enteric contrast reaches the splenic flexure. No evidence of bowel obstruction. PERITONEUM: No evidence of pneumoperitoneum or free fluid. VASCULATURE: Mild to moderate atherosclerotic calcifications are present throughout the abdominal aor ta and its branches. Few pelvic phleboliths. MUSCULOSKELETAL: No acute osseous abnormalities. Mild degenerative changes in the hips. Mild degenera tive changes of the symphysis. Hypertrophic facet arthropathy mid to lower lumbar spine. No aggressiv e osseous lesion. LYMPH NODES: No evidence for lymphadenopathy. SOFT TISSUE/ABDOMINAL WALL: Postsurgical changes from previous infraumbilical rectus diastases. There is redemonstration of a fluid collection measuring 3.1 x 1.3 cm. This is decreased in size when it m easured previously 4.1 x 1.4 cm. This is again along the left paramedian infraumbilical deep subcutan eous layer and most consistent with a postoperative seroma. IMPRESSION: 1. Status post resection of the distal sigmoid colon with anastomosis. No evidence for local recurre nce. No adenopathy identified. 2. Stable scattered fibroma or pulmonary nodules. No new or enlarging pulmonary nodules. 3. Postoperative changes of patient's infraumbilical rectus diastasis is redemonstrated with decreas ed size of fluid collection along the deep subcutaneous adipose layer probably representing postopera tive seroma. 4. Hepatomegaly with fatty infiltration redemonstrated. 5. Cholelithiasis. 6. Mild COPD changes. [facility], , 09/17/2024 2:42 PM
== END | disposition home or self-care (01) ==
LOC: RADCTMAIN 10:02
PROVIDERS: ATTEND Internal Medicine Hematology & Oncology
CPT/HCPCS: 36415; 71260; 74177; 82565; 84520

== ENCOUNTER → 2025-02-05 | Outpatient (CLI) | payer MEDICARE ==
--- NOTE | 2025-02-05 13:17 | XR ---
EXAMINATION TYPE: XR lumbosacral spine min 4V DATE OF EXAM: 02/05/2025 12:59 PM COMPARISON: None. CLINICAL INDICATION: Female, 64 years old with history of M54.50 LOW BACK PAIN, TECHNIQUE: Frontal, lateral, and oblique images of the lumbar spine are obtained. FINDINGS: There are 5 lumbar type vertebral bodies identified. The lumbar spine shows satisfactory alignment without evidence of acute fracture or dislocation. Vertebral body heights are within normal limits. Disc spaces are well preserved. The overlying soft tissue appears unremarkable. IMPRESSION: No acute fracture or dislocation is seen in the lumbar spine.ICD 10 NO FRACTURE, INITIAL EVALUATION [facility], , 02/05/2025 1:14 PM
== END | disposition home or self-care (01) ==
LOC: RADXRMAIN 12:38
PROVIDERS: ATTEND Family Medicine
DX: M54.50 Low back pain, unspecified (principal)
CPT/HCPCS: 72110

== ENCOUNTER → 2025-03-31 | Outpatient (CLI) | payer MEDICARE ==
--- NOTE | 2025-03-31 14:29 | CT ---
EXAMINATION TYPE: CT ChestAbdPelvis wo con CT DLP: 1664.8 mGycm, Automated exposure control for dose reduction was used. DATE OF EXAM: 03/31/2025 2:08 PM COMPARISON: Multiple CT chest abdomen pelvis with most recent 09/17/2024 CLINICAL INDICATION:Female, 65 years old with history of C18.9 COLON CANCER; [facility], colon cancer follow up Technique: Multiple axial images of the chest, abdomen, and pelvis were obtained following without th e administration of intravenous contrast. Oral contrast was administered. Two-dimensional coronal and sagittal reconstructions were obtained. Findings: Evaluation is limited due to lack of intravenous contrast. CHEST: LUNGS/ PLEURA: No pleural effusion, pneumothorax, focal consolidation. Mild centrilobular emphysemat ous changes with few stable pulmonary nodules with one of them representing calcification likely prio r granulomatous disease. These include a calcified 8 mm right anterior upper lobe pulmonary nodule (s eries 4, image 32). Left upper lobe 6.9 mm pulmonary nodule (series 4, image 22). And a posterior lef t upper lobe 5.8 mm pulmonary nodule (series 4, image 16). No new or enlarging pulmonary nodules. AIRWAY: Patent and unremarkable.. HEART: Size within normal limits. No pericardial effusion. Mild LAD coronary calcifications. Mild aor tic valvular calcifications. MEDIASTINUM: No evidence of adenopathy. VASCULATURE: No aortic aneurysm. Mild atherosclerotic arch calcifications with bovine configuration to the aortic arch. MUSCULOSKELETAL: No acute osseous abnormalities. No aggressive osseous lesion. SOFT TISSUES/LYMPH NODES: Unremarkable. LOWER NECK: No significant findings. ABDOMEN: ABDOMEN LIVER: Mildly enlarged measuring 19.6 cm in CC dimension. Diffusely hypoattenuating. No focal lesion identified. GALLBLADDER AND BILE DUCTS: Small layering gallstones. No color distention or surrounding inflammator y changes. No biliary ductal dilatation. PANCREAS: Unremarkable. SPLEEN: Unremarkable. ADRENAL GLANDS: Left adrenal gland is unremarkable. Stable nodularity to the right adrenal gland jemal uring up to 1.8 cm. Stability suggests a benign process. Attention on follow-up exam. KIDNEYS AND URETERS: No evidence of hydronephrosis. 2 nonobstructive right renal inferior pole calcul i with largest measuring up to 6 mm. The kidneys enhance symmetrically. Stable right renal cysts jemal uring up to 6.1 cm. Stable left lower pole 1.6 cm cyst. No follow-up recommended for the simple appea ring cyst. PELVIS BLADDER: Underdistended which limits evaluation. REPRODUCTIVE: Uterus is anteverted with redemonstration of a suspected subserosal fibroid of the left anterior lower uterine segment. ABDOMEN & PELVIS STOMACH AND BOWEL: Stomach and duodenum are unremarkable. Staple line from prior resection and re-gomez stomosis of the distal sigmoid colon. No wall thickening to suggest local recurrence. Redundant sigmo id colon. Enteric contrast reaches the distal transverse colon. No evidence of bowel obstruction. The appendix is within normal limits. PERITONEUM: No evidence of pneumoperitoneum or free fluid. VASCULATURE: Mild to moderate atherosclerotic calcifications are present throughout the abdominal aor ta and its branches. Few pelvic phleboliths. MUSCULOSKELETAL: No acute osseous abnormalities. Mild degenerative changes in the hips. Mild degenera tive changes of the symphysis. Hypertrophic facet arthropathy mid to lower lumbar spine. No aggressiv e osseous lesion. Superior endplate Schmorl's node involving the L4 vertebral body. LYMPH NODES: No evidence for lymphadenopathy. SOFT TISSUE/ABDOMINAL WALL: Postsurgical changes from previous infraumbilical rectus diastases with s carring. Near-complete resolution of previously demonstrated seroma. IMPRESSION: 1. Status post resection of the distal sigmoid colon with anastomosis. No evidence for local recurre nce. No adenopathy identified. 2. Few stable scattered pulmonary nodules. No new or enlarging pulmonary nodules. Attention on follo w-up exam. 3. Hepatomegaly with fatty infiltration redemonstrated. 4. Cholelithiasis. 5. Mild emphysematous changes. [facility], , 03/31/2025 2:26 PM
== END | disposition home or self-care (01) ==
LOC: RADCTMAIN 12:02
PROVIDERS: ATTEND Internal Medicine Hematology & Oncology
DX: C18.9 Malignant neoplasm of colon, unspecified (principal); D60.9 Acquired pure red cell aplasia, unspecified; R16.0 Hepatomegaly, not elsewhere classified; K76.0 Fatty (change of) liver, not elsewhere classified; K80.20 Calculus of gallbladder without cholecystitis without obstruction; J43.9 Emphysema, unspecified; Z98.890 Other specified postprocedural states
CPT/HCPCS: 71250; 74176

== ENCOUNTER → 2025-06-04 | Outpatient (CLI) | payer MEDICARE ==
--- NOTE | 2025-06-04 10:10 | MM ---
Reason for Exam: Screening (asymptomatic). Last mammogram was performed 2 year(s) and 7 month(s) ago. Patient History: Menarche at age 8. First Full-Term at age 18. Postmenopausal. Colorectal cancer, age 59. 05/19/2008, Benign Core Biopsy on the left side. Risk Values: Regina 5 year model risk: 2.0%. NCI Lifetime model risk: 6.7%. Prior Study Comparison: 08/14/2020 Bilateral Screening Mammogram, [facility]. 10/19/2021 Bilateral Screening Mammogram, [facility]. 10/25/2022 Bilateral MG screening mammo w CAD, [facility]. Tissue Density: The breasts are heterogeneously dense, which may obscure small masses. Findings: Analyzed By CAD. There is no suspicious group of microcalcifications in either breast. 6 mm nodular density inner central right breast approximately 8 to 9 cm from the nipple. Additional views are recommended. Overall Assessment: Incomplete: need additional imaging evaluation, BI-RAD 0 Management: Diagnostic Mammogram of the right breast. . Patient should continue monthly self-breast exams. A clinical breast exam by your physician is recommended on an annual basis. This exam should not preclude additional follow-up of suspicious palpable abnormalities. Note on Regina scores and lifetime risk: 1. A Regina score greater than 3% is considered moderate risk. If this is the case, consider specialist referral to assess eligibility for a risk reducing agent. 2. If overall lifetime risk for the development of breast cancer is 20% or higher, the patient may qualify for future screening with alternating mammogram and breast MRI. [facility], , 06/04/2025 10:07 AM. Electronically signed and approved by: Bryant Lomeli M.D. Radiologis
== END | disposition home or self-care (01) ==
LOC: RADMAMWWP 08:59
PROVIDERS: ATTEND Family Medicine
DX: Z12.31 Encounter for screening mammogram for malignant neoplasm of breast (principal); R92.333 Mammographic heterogeneous density, bilateral breasts; Z78.0 Asymptomatic menopausal state
CPT/HCPCS: 77067

== ENCOUNTER 2025-06-05 06:38 | Day surgery (SDC) | payer MEDICARE ==
[2025-06-04 10:45] VITALS: BMI 45.0
[2025-06-05] MEDS: IV FLUID CONTINUATION 1,000 ML IV ONE ×2 (07:24→07:54)
[2025-06-05] MEDS: LACTATED RINGERS 1,000 ML IV SCH (07:30)
[2025-06-05 07:33] VITALS: TEMP 97
[2025-06-05 07:37] LABS: Glucose,Whole Blood 162 mg/dL (70-110)
[2025-06-05] MEDS ORDERED: LIDOCAINE 1% INJ 10MG/ML (20 ML MDV) ONE (07:39)
[2025-06-05] MEDS ORDERED: PROPOFOL 10 MG/ML 20 ML VIAL IV ONE (07:39)
--- NOTE | 2025-06-05 08:00 | P.PCN ---
Date of Procedure: 06/05/25 Preoperative Diagnosis: History of colon cancer Postoperative Diagnosis: History of colon cancer History of low anterior resection Procedure(s) Performed: Colonoscopy Anesthesia: MAC Surgeon: Jose Padilla Pathology: none sent Condition: stable Disposition: same day Indications for Procedure: 65-year-old female with personal history of colon cancer presents today for colonoscopy. 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 Denies any blood in her stool. No additional complaints at this time. Risks, benefits and alternatives were provided to the patient. All questions answered. Operative Findings: Anastomosis patent with no ulceration No polyps Description of Procedure: The patient was brought to the endoscopy suite and placed in left lateral decubitus position and adequate sedation was achieved using conscious sedation. Digital rectal exam was performed and mild internal hemorrhoids were palpated. An endoscope was then placed in the rectum and advanced to the cecum as identified by landmarks including the appendiceal orifice and the ileocecal valve. The prep was good. The colonoscope was then slowly withdrawn, examining for any mucosal abnormalities. The cecum, ascending, transverse, descending and anastomosis were visualized adequately. There were no large neoplastic lesions noted throughout the colon. No obvious polyps noted throughout the colon. No significant evidence of diverticulosis is noted. The anastomosis was noted to be patent without any ulceration. Hemostasis was maintained. Retroflexion was performed in the rectum and internal hemorrhoid. Excess air was removed, the colonoscope withdrawn and the procedure terminated. The patient was then transferred to the recovery unit in stable condition. Repeat colonoscopy should be performed in 3 years.
[2025-06-05 08:02] VITALS: RESP 16
[2025-06-05 08:20] VITALS: BP 107/60; PULSE 72
== END 2025-06-05 08:43 | disposition home or self-care (01) ==
LOC: ORWHC2ENDO 06:38
PROVIDERS: ATTEND Surgery
DX: Z12.11 Encounter for screening for malignant neoplasm of colon (principal); K64.8 Other hemorrhoids; I48.91 Unspecified atrial fibrillation; I10 Essential (primary) hypertension; E11.9 Type 2 diabetes mellitus without complications; E07.9 Disorder of thyroid, unspecified; K21.9 Gastro-esophageal reflux disease without esophagitis; Z79.01 Long term (current) use of anticoagulants; Z79.899 Other long term (current) drug therapy; Z85.038 Personal history of other malignant neoplasm of large intestine; Z90.49 Acquired absence of other specified parts of digestive tract; Z98.0 Intestinal bypass and anastomosis status
CPT/HCPCS: J2003; J2704; G0105

== ENCOUNTER → 2025-06-06 | Outpatient (CLI) | payer MEDICARE ==
--- NOTE | 2025-06-06 12:08 | MM ---
Reason for Exam: Additional evaluation requested from abnormal screening. Last screening mammogram was performed less than 1 month ago. Patient History: Menarche at age 8. First Full-Term at age 18. Postmenopausal. Colorectal cancer, age 59. 05/19/2008, Benign Core Biopsy on the left side. Risk Values: Regina 5 year model risk: 2.0%. NCI Lifetime model risk: 6.7%. Prior Study Comparison: 08/13/2019 Bilateral Screening Mammogram, [facility]. 08/14/2020 Bilateral Screening Mammogram, [facility]. 10/19/2021 Bilateral Screening Mammogram, [facility]. 10/25/2022 Bilateral MG screening mammo w CAD, [facility]. 06/04/2025 Bilateral MG screening mammo w CAD, [facility]. Tissue Density: Right: The breasts are heterogeneously dense, which may obscure small masses. Findings: Analyzed By CAD. 5 mm nodule inner margin of the right breast seen inferiorly on the MLO view persists on compression view. Stable calcifications. Overall Assessment: Incomplete: need additional imaging evaluation, BI-RAD 0 Management: Diagnostic Breast Ultrasound of the right breast. . Results were given to the patient verbally at the time of exam. Patient should continue monthly self-breast exams. A clinical breast exam by your physician is recommended on an annual basis. This exam should not preclude additional follow-up of suspicious palpable abnormalities. Note on Regina scores and lifetime risk: 1. A Regina score greater than 3% is considered moderate risk. If this is the case, consider specialist referral to assess eligibility for a risk reducing agent. 2. If overall lifetime risk for the development of breast cancer is 20% or higher, the patient may qualify for future screening with alternating mammogram and breast MRI. [facility], , 06/06/2025 12:05 PM. Electronically signed and approved by: Sylvester Elias M.D. Radiologis
--- NOTE | 2025-06-06 12:29 | USB ---
Reason for Exam: Additional evaluation requested from abnormal screening. Patient History: Menarche at age 8. First Full-Term at age 18. Postmenopausal. Colorectal cancer, age 59. 05/19/2008, Benign Core Biopsy on the left side. Risk Values: Regina 5 year model risk: 2.0%. NCI Lifetime model risk: 6.7%. Technique: Method: Targeted. Prior Study Comparison: 10/19/2021 Bilateral Screening Mammogram, [facility]. 10/25/2022 Bilateral MG screening mammo w CAD, [facility]. 06/04/2025 Bilateral MG screening mammo w CAD, [facility]. Findings: The lower inner quadrant of the right breast, the axilla of the right breast and the retroareolar of the right breast were scanned. A limited US of all 3-4 clock position right breast, axilla and retro-areolar region were reviewed. There is a 5 mm hypoechoic nodule. Overall Assessment: Probably benign, BI-RAD 3 Management: Special View Mammogram of the right breast in 6 months. A clinical breast exam by your physician is recommended on an annual basis and results should be correlated with mammographic findings. This exam should not preclude additional follow-up of suspicious palpable abnormalities. Results were given to the patient verbally at the time of exam. [facility], , 06/06/2025 12:26 PM. Electronically signed and approved by: Sylvester Elias M.D. Radiologis
== END | disposition home or self-care (01) ==
LOC: RADMAMWWP 11:27
PROVIDERS: ATTEND Family Medicine
DX: R92.8 Other abnormal and inconclusive findings on diagnostic imaging of breast (principal); R92.331 Mammographic heterogeneous density, right breast; Z78.0 Asymptomatic menopausal state
CPT/HCPCS: 77061; 77065